=== PATIENT | female | born 1955 | race Caucasian/White ===

== ENCOUNTER 2023-06-27 07:35 | Outpatient (OUT) | payer MEDICARE, SELFPAY | END 2023-06-27 07:36 | disposition home or self-care (01) | LOC: PST 07:35 | PROVIDERS: PCP Family Medicine; Visit Provider Surgery | DX: Z01.818 Encounter for other preprocedural examination (principal); R19.7 Diarrhea, unspecified; R19.4 Change in bowel habit ==

== ENCOUNTER 2023-07-04 07:25 | Day surgery (SDC) | payer MEDICARE, SELFPAY ==
--- NOTE | 2023-07-04 | OP_ITS ---
OPERATION DATE: 07/04/2023 PREOPERATIVE DIAGNOSIS: Change in bowel habits with frequent loose stools. POSTOPERATIVE DIAGNOSIS: Severe diverticulosis throughout the colon, redundancy of the colon. PROCEDURE: Colonoscopy to cecum with random sigmoid and rectal biopsies. SURGEON: Cuba Serrato M.D. ANESTHESIA: Monitored anesthesia care. ESTIMATED BLOOD LOSS: Less than 1 mL. INDICATIONS AND CONSENT: Patient is a 67-year-old female with history of change in bowel habits with frequent loose stools. Indications, risks, benefits, alternatives of proceeding with colonoscopy were explained extensively to the patient, including the risks of bleeding, colon perforation or anesthetic complications. All of her questions were answered. Informed consent was obtained. PROCEDURE: Patient brought to the operating room, placed in the left lateral decubitus position. Monitored anesthesia care was provided. Rectal exam was performed which shows no masses or blood. The scope was inserted into the anal canal. Under direct visualization was advanced. It was advanced to the cecum where cecal markings were clearly identified. There were no inflammatory changes or ulcerations. The terminal ileum was unable to be intubated due to the angle. Upon withdrawal of the scope, mucosal surfaces were carefully examined. There were no mass lesions or polyps. No inflammatory changes or ulcerations. There was severe diverticulosis throughout the colon, including the right colon, without inflammatory changes or scarring. There was redundancy of the colon. Random sigmoid biopsies were obtained with cold biopsy forceps as well as rectal biopsies with good hemostasis. Scope was retroflexed in the anal canal. There was no significant hemorrhoidal disease. The scope was then withdrawn. Patient tolerated procedure well, was sent to recovery room in good condition.f/u screening colonoscopy likely in 10 years CC: Giselle Alfredo
[2023-07-04 07:30] VITALS: BP 157/96; PULSE 76; RESP 18; TEMP 36.8; O2SAT 96; BMI 46.4
--- OUTSIDE RECORDS SUMMARY | 2023-07-04 07:36 | XMS_ITS | CCD ---
Author Name Unknown Address [address] [place] [address] Organization [facility] Care Team Providers Care Office Coordinator Name Role Phone ELADIO XAVIER Unavailable Unavailable NADEREPATRICK Bello Unavailable Unavailabl STANLEY Ansari Unavailable Unavailable MARCO ANTONIO EPPERSON Unavailable Unavailable CAMILLE HASSAN Unavailable Unavailable MORENITAELADIO Patterson Unavailable Unavailable NADEREAce, PATRICK CAPELLAN Unavailable Unavailalexa e Laurent, Patrick Lopez Primary Care Provider [phone] Naderer, Patrick Lopez Primary Care Provider [phone] OSBALDO AGUILARI Admitting Unavailable EMILY, HANI Attending Unavailable UNKNOWN, PHYSICIAN Referring Unavailable NADEASTON, PATRICK Primary Care Unavailable NANO, DR LINH Bello Attending Unavailable NANO, DR LINH Bello Consulting Unavailable NANO, DR LINH Bello Admitting Unavailable NADERER, DR PATRICK Lopez Primary Care Unavailable ZIEBER, DR SHELDON Bello Consulting Unavailable BOONE ., LISETH Consulting Unavailable NADERER, DR PATRICK Lopez Primary Care Unavailable SAMSA, CHELLE Admitting Unavailable SAMSA, CHELLE Attending Unavailable SAMSA, CHELLE Consulting Unavailable NADERER, DR PATRICK Lopez Admitting Unavailable MALAGA, DR MEGAN Abrams Consulting Unavailable NADERER, DR PATRICK Lopez Attending Unavailable NADERER, DR PATRICK Lopez Primary Care Unavailable NADERER, DR PATRICK Lopez Consulting Unavailable NADERER, DR PATRICK Lopez Admitting Unavailable NADERER, DR PATRICK Lopez Attending Unavailable NADERER, DR PATRICK Lopez Consulting Unavailable NADERER, DR PATRICK Lopez Primary Care Unavailable NADERER, DR PATRICK Lopez Primary Care Unavailable MOUKARBKIRILL SULLIVAN Admitting Unavailable MOUKARBEL, KIRILL Attending Unavailable MOUKARBELKIRILL Consulting Unavailable NADERER, DR PATRICK Lopez Primary Care Unavailable NADERER, DR PATRICK Lopez Admitting Unavailable NADERER, DR PATRICK Lopez Attending Unavailable NADERER, DR PATRICK Lopez Consulting Unavailable MOUKARBELKIRILL Admitting Unavailable NADERER, DR PATRICK A Primary Care Unavailable KIRILL HOPKINS Attending Unavailable KIRILL HOPKINS Consulting Unavailable BEATA CUMMINS Attending Unavailable KIRILL HOPKINS Attending Unavailable PATRICK MANCILLA Primary Care Physician Cuba GREENE Attending Unavailable PATRICK MANCILLA Referring Unavailable Allergies Allergy Classification Reported Allergen(s) Allergy Type Date of Onset Reaction(s) Facility (5 sources) Povidone-Iodine; Translations: [povidone iodine topical] Drug Allergy 9 Eruption of skin (disorder) [facility] (1 source) Povidone-Iodine Drug Allergy 3 [facility] (2 sources) Povidone-Iodine; Translations: [Betadine] Drug Allergy 3 [facility] Rep[facility] (1 source) Povidone-Iodine; Translations: [POVIDONE-IODINE ] Drug Allergy 8 [facility] Repository Medications Current Medications Medication Drug Class(es) Dates Sig (Normalized) Sig (Original) acetaminophen 325 mg / HYDROcodone bitartrate 5 mg oral tablet (4 sources) Opioid Agonist take 1 tablet by mouth four times daily as needed hydroCODone-aceta minophen 5-325 MG Tab tablet Take 1 tablet by mouth 4 times daily as needed. 0 Active ProAir HFA (2 sources) beta2-Adrenergic Agonist Start: 05-30-2023 take 2 puff(s) by inhalation every four hours ProAir HFA 2 puff(s), Inhalation, q4hr Shortness of breath or wheezing, Refill(s) 0 Start Date: 05/30/23 Status: Ordered Start: 05-30-2023 take 2.5 mg by inhal ation four times daily albuterol 0.083% Inh Sheri 3 mL 2.5 mg, 3 mL, NEB, QID Shortness of breath or wheezing, Refill(s) 0 Start Date: 05/30/23 Status: Ordered ascorbic acid 500 mg oral capsule (1 source) Vitamin C Ascorbic Acid (Vitamin C) 500 MG capsule Take by mouth. 0 Active aspirin 81 mg delayed release oral tablet (4 sources) Platelet Aggregation Inhibitor, Nonsteroidal Anti-inflammatory Drug Start: 05-30-2023 take 1 tablet by mouth once daily aspirin 81 mg Oral EC Tab 81 mg = 1 tab(s), Oral, Daily, Refills(s) 0 Start Date: 05/30/23 Status: Ordered Start: 02-24-2020 End: 02-25-2020 take 81 mg by mouth once daily 81 mg, Oral, DAILY, Fir st dose on Sun02/24/20 at 0900, Until Discontinued Start: 02-23-2020 End: 02-23-2020 aspirin chewable tablet 243 mg atropine sulfate 0.025 mg / diphenoxylate hydrochloride 2.5 mg oral tablet (1 source) Anticholinergic, Cholinergic Muscarinic Antagonist, Antidiarrheal Start: 05-30-2023 take 1 tablet by mouth four times daily as needed Lomotil 0.025 mg-2.5 mg Tab 1 tab(s), Oral, QID as needed for loose stool, Refill(s) 0 Start Date: 05/30/23 Status: Ordered biotin 1 mg oral capsule (1 source) Biotin 1 MG capsule Take by mouth. 0 Active celecoxib 200 mg oral capsule (5 sources) Nonsteroidal Anti-inflammatory Drug Start: 05-30-2023 take 1 capsule by mouth twice daily CeleBREX 200 mg Cap 200 mg = 1 cap(s), Oral, BID, Refills(s) 0 Start Date: 05/30/23 Status: Ordered Start: 01-23-2019 take 1 capsule by [facility] twice daily celecoxib 200 MG Cap capsule Take 200 mg by mouth 2 times daily. 5 01/23/2019 Active cetirizine hydrochloride 10 mg oral tablet (1 source) Histamine-1 Receptor Antagonist Start: 05-30-2023 take 1 tablet by mouth once daily cetirizine 10 mg Tab 10 mg = 1 tab(s), Oral, Daily, Refills(s) 0 Start Date: 05/30/23 Status: Ordered cholecalciferol 1000 unt oral tablet (1 source) Vitamin D take 1 tablet by mouth once daily Vitamin D3 25 MCG (1000 UT) tablet Take 1,000 Units by mouth daily. 0 Active cyclobenzaprine hydrochloride 10 mg oral tablet (1 source) Muscle Relaxant Start: 05-30-2023 take 1 tablet by mouth three times daily as needed for muscle spasms cyclobenzaprine 10 mg Tab 10 mg = 1 tab(s), Oral, TID, PRN for spasm, Refills(s) 0 Start Date: 05/30/23 Status: Ordered docosahexaenoic acid 120 mg / eicosapentaenoic acid 180 mg oral capsule (1 source) take 2 tablets by mouth once daily Mcloud-3 Fatty Acids (Fish Oil) 1000 MG capsule Take by mouth daily. 2 tabs daily 0 Active 0.5 ml dulaglutide 3 mg/ml auto-injector (1 source) GLP-1 Receptor Agonist Start: 05-30-2023 inject 1.5 mg by subcutaneous injection every week Trulicity Pen 1.5 mg/0.5 mL subcutaneous solution 1.5 mg, SubCutaneous, qWeek, Refills(s) 0 Start Date: 05/30/23 Status: Ordered fluticasone propionate 0.05 mg/actuat metered dose nasal spray (6 sources) Corticosteroid Start: 05-30-2023 Flonase 0.05 mg/inh Palisade 100 mcg, Nasal, Daily, Refill(s) 0 Start Date: 05/30/23 Status: Ordered Start: 02-23-2020 End: 02-25-2020 take 2 spray(s) nasal route once daily 2 spray, Nasal, DAILY, First dose on Sun02/23/20 at 2100, Until Discontinued Dose is for each nostril. fluticasone 50 M CG/ACT Suspension nasal spray 2 sprays by Nasal route daily. 0 Active furosemide 40 mg oral tablet (6 sources) Loop Diuretic Start: 05-30-2023 take 1 tablet by mouth twice daily Lasix 40 mg Tab 40 mg = 1 tab(s), Oral, BID, Refills(s) 0 Start Date: 05/30/23 Status: Ordered Start: 02-23-2020 End: 02-25-2020 take 40 mg by mouth twice daily 40 mg, Oral, 2 TIMES D AILY, First dose on Sun02/23/20 at 1700, Until Discontinued take 1 tablet by kryslte th twice daily furOSEmide 40 MG Tab tablet Take 40 mg by mouth 2 times daily. 0 Active 24 hr isosorbide mononitrate 60 mg extended release oral tablet (6 sources) Nitrate Vasodilator Start: 05-30-2023 take 1 tablet by mouth once daily in the morning isosorbide mononitrate 60 mg ER Tab 60 mg = 1 tab(s), Oral, qAM, Refills(s) 0 Start Date: 05/30/23 Status: Ordered Start: 02-24-2020 End: 02-25-2020 60 mg, Oral, DAILY, First do se on Sun02/24/20 at 0900, Until Discontinued Do not crush or chew. May be divided in half. take 1 tablet by krystle th once daily, then take 1 tablet by mouth every twenty-four hours isosorbide mononitrate 60 MG Tab SR 24 HR tablet XL Take 60 mg by mouth daily. 0 Active levothyroxine sodium 0.125 mg oral tablet (6 sources) l-Thyroxine Start: 05-30-2023 take 1 tablet by mouth once daily Synthroid 125 mcg (0.125 mg) Tab 125 mcg = 1 tab(s), Oral, Daily, Refills(s) 0 Start Date: 05/30/23 Status: Ordered Start: 01-23-2019 End: 02-25-2020 take 112 ug by mouth once daily before breakfast 112 mcg, Oral, DAILY BEFORE BREAKFAST, First dose on Sun02/24/20 at 0600, Until Discontinued 24 hr metoprolol succinate 50 mg extended release oral tablet (5 sources) beta-Adrenergic Carmen Start: 05-30-2023 take 1 tablet by mouth once daily metoprolol 50 mg ER Tab 50 mg = 1 tab(s), Oral, Daily, Refills(s) 0 Start Date: 05/30/23 Status: Ordered Start: 02-25-2020 take 1 tablet by krystle th once daily metoprolol succinate 25 MG tablet XL Take 1 tablet by mouth daily. 30 tablet 1 02/25/2020 Active Start: 02-25-2020 End: 02-25-2020 metoprolol (LOPRESSOR) injec tion 0-15 mg Start: 02-24-2020 End: 02-25-2020 take 50 mg by mouth once daily 50 mg, Oral, DAILY, Fir st dose on Sun02/24/20 at 0900, Until Discontinued End: 02-25-2020 take 2 tablets by mouth once daily metoprolol 25 MG tab regular release Take 50 mg by mouth daily. 0 02/25/2020 Discontinued (Stop Taking at Discharge) montelukast 10 mg oral tablet (1 source) Leukotriene Receptor Antagonist Start: 05-30-2023 take 1 tablet by mouth once daily Singulair 10 mg Tab 10 mg = 1 tab(s), Oral, Daily, Refills(s) 0 Start Date: 05/30/23 Status: Ordered NIFEdipine 60 mg osmotic 24 hr extended release oral tablet (6 sources) Dihydropyridine Calcium Channel Carmen Start: 05-30-2023 take 1 tablet by mouth once daily Procardia 60 mg Tab-ER 60 mg = 1 tab(s), Oral, Daily, Refills(s) 0 Start Date: 05/30/23 Status: Ordered Start: 02-24-2020 End: 02-25-2020 take 60 mg by mouth once daily 60 mg, Oral, DAILY, First dose on Sun02/24/20 at 0900, Until Discontinued Slow release product. Do not chew or crush. Start: 01-28-2019 take 1 tablet by krystle th once daily NIFEdipine 60 MG (OSM) tablet XL Take 60 mg by mouth daily. 5 01/28/2019 Active omeprazole 40 mg delayed release oral capsule (4 sources) Proton Pump Inhibitor Start: 02-10-2019 take 1 capsule by mouth once daily omeprazole [address] capsule Take 1 capsule by mouth daily. 30 capsule 1 02/10/2019 Active pantoprazole 40 mg delayed release oral tablet (2 sources) Proton Pump Inhibitor Start: 05-30-2023 take 1 tablet by mouth once daily Protonix 40 mg Tab-DR 40 mg = 1 tab(s), Oral, Daily, Refills(s) 0 Start Date: 05/30/23 Status: Ordered Start: 02-23-2020 End: 02-25-2020 pantoprazole (PROTONIX) tabl et DR 40 mg rosuvastatin calcium 40 mg oral tablet (1 source) HMG-CoA Reductase Inhibitor Start: 05-30-2023 take 1 tablet by mouth once daily Crestor 40 mg Tab 40 mg = 1 tab(s), Oral, Daily, Refills(s) 0 Start Date: 05/30/23 Status: Ordered Symbicort 160/4.5 inhalation aerosol with adapter (1 source) Start: 05-30-2023 take 2 puff(s) by inhalation twice daily Symbicort 160/4.5 inhalation aerosol with adapter 2 puff(s), Inhalation, BID, Refill(s) 0 Start Date: 05/30/23 Status: Ordered traMADol hydrochloride 50 mg oral tablet (6 sources) Opioid Agonist Start: 05-30-2023 take 1 tablet by mouth every four hours as needed for pain Ultram 50 mg Tab 50 mg = 1 tab(s), Oral, q4hr, PRN as needed for pain, Refills(s) 0 Start Date: 05/30/23 Status: Ordered Start: 02-23-2020 End: 02-25-2020 take 1 tablet by mouth every six hours as needed 50 mg, Oral, EVERY 6 HOURS NEEDED, Starting Sun02/23/20 at 0918, Until Sun02/25/20 at 1934, Moderate Pain take 1 tablet by krystle th every six hours as needed traMADol 50 MG Tab tablet Take 50 mg by mouth every 6 hours as needed. 0 Active 24 hr venlafaxine 150 mg extended release oral capsule (3 sources) Serotonin and Norepinephrine Reuptake Inhibitor Start: 05-30-2023 take 1 capsule by mouth once daily Effexor XR 150 mg Cap-ER 150 mg = 1 cap(s), Oral, Daily, Refills(s) 0 Start Date: 05/30/23 Status: Ordered Start: 02-24-2020 End: 02-25-2020 take 150 mg by mouth once daily at breakfast 150 mg, Oral, DAILY WITH BREAKFAST, First dose on Sun02/24/20 at 0745, Until Discontinued take 150 mg by mouth once daily VENLAFAXINE HCL PO Take 150 mg by mouth daily. 0 Active Completed/Discontinued Medications Medication Drug Class(es) Dates Sig (Normalized) Sig (Original) acetaminophen 325 mg oral tablet (1 source) Start: 02-23-2020 End: 02-25-2020 take 1 tablet by mouth every four hours as needed acetaminophen (TYLENOL) tablet 650 mg albuterol 0.833 mg/ml / ipratropium bromide 0.167 mg/ml inhalant solution (1 source) Anticholinergic, beta2-Adrenergic Agonist Start: 02-23-2020 End: 02-25-2020 take 3 mL by inhalation every four hours as needed ipratropium-albuter ol (DUONEB) 0.5-2.5 (3) MG/3ML nebulizer solution 3 mL 10 ml atropine sulfate 0.1 mg/ml prefilled syringe (1 source) Anticholinergic, Cholinergic Muscarinic Antagonist Start: 02-25-2020 End: 02-25-2020 atropine injection 0-2 mg 250 ml DOBUTamine 2 mg/ml injection (1 source) beta-Adrenergic Agonist Start: 02-25-2020 End: 02-25-2020 DOBUTamine in dextrose 5% (DOBUTREX) 500 mg/250 ml premix infusion 0.4 ml enoxaparin sodium 100 mg/ml prefilled syringe (1 source) Low Molecular Weight Heparin Start: 02-23-2020 End: 02-25-2020 enOXAParin (LOVENOX) injection 40 mg 4 ml labetalol hydrochloride 5 mg/ml cartridge (1 source) beta-Adrenergic Carmen Start: 02-23-2020 End: 02-25-2020 take 20 mg intravenous route every six hours as needed labetalol (NORMODYNE) injection 20 mg lamoTRIgine 25 mg oral tablet (5 sources) Mood Stabilizer, Anti-epileptic Agent Start: 02-23-2020 End: 02-25-2020 take 50 mg by mouth once daily at bedtime 50 mg, Oral, DAILY AT BEDTIME, First dose on Sun02/23/20 at 2100, Until Discontinued Start: 01-28-2019 take 1 tablet by krystle th at bedtime, then take 2 tablets by mouth at bedtime lamoTRIgine 25 MG Tab TAKE ONE TABLET BY MOUTH AT BEDTIME FOR TWO WEEKS THEN INCREASE TO TWO TABLETS AT BEDTIME 5 01/28/2019 Active 50 ml magnesium sulfate 40 mg/ml injection (1 source) Start: 02-23-2020 End: 02-25-2020 magnesium sulfate 2 g/50 mL in sterile water premix IVPB 2 g 50 mL (total volume) 2 ml ondansetron 2 mg/ml injection (4 sources) Serotonin-3 Receptor Antagonist Start: 02-23-2020 End: 02-25-2020 take 4 mg intravenous route every four hours as needed ondansetron 4mg/2ml (ZOFRAN) injection 4 mg Start: 06-30-2019 take 1 tablet by krystle th every four hours as needed for nausea ondansetron 4 MG Tab Dispersible tablet Indications: Nausea vomiting and diarrhea Take 1 tablet by mouth every 4 hours as needed for Nausea. Place on tongue 10 tablet 0 06/30/2019 Active Start: 06-30-2019 End: 06-30-2019 ondansetron (ZOFRAN-ODT) disintegrating tablet 4 mg PERFLUTREN LIPID MICROSPHERE 1.3 ML/8.7ML (2 sources) Start: 02-25-2020 End: 02-25-2020 PERFLUTREN LIPID MICROSPHERE 1.3 ML/8.7ML Start: 02-23-2020 End: 02-23-2020 PERFLUTREN LIPID MICROSPHERE 1.3 ML/8.7ML Potassium Chloride (1 source) Start: 02-24-2020 End: 02-25-2020 potassium chloride (K-DUR) tablet ER 40 mEq 250 ml sodium chloride 9 mg/ ml injection (2 sources) Start: 02-25-2020 End: 02-25-2020 sodium chloride 0.9% IV solution 1,000 mL Start: 02-23-2020 End: 02-25-2020 sodium chloride 0.9% IV solu tion spironolactone 25 mg oral tablet (4 sources) Aldosterone Antagonist End: 02-25-2020 take 1 tablet by mouth twice daily spironolactone 25 MG Tab tablet Take 25 mg by mouth 2 times daily. 0 02/25/2020 Discontinued (Stop Taking at Discharge) tiotropium 0.018 mg inhalation powder (1 source) Anticholinergic Start: 05-30-2023 Spiriva 18 mcg Cap 18 mcg = 1 cap(s), Inhalation, Daily, Using only ONE capsule, have the patient inhale twice, # 90 cap(s), Refills(s) 0 Start Date: 05/30/23 Status: Ordered Problems Active Problems Problem Classification Problem Date Documented Da te Episodic/Chronic Acute and unspecified renal failure (2 sources) Acute injury of kidney; Translations: [EDIE (acute kidney injury)] Onset: 02-23-2020 02-23-2020 Anxiety disorders (1 source) Generalized anxiety disorder 05-30-2023 Chronic Asthma (1 source) Asthma 05-30-2023 Chronic Cardiac dysrhythmias (4 sources) Ventricular premature depolarization; Translations: [Atrial premature depolarization] Onset: 06-16-2022 Chronic Chronic kidney disease (1 source) Chronic kidney disease stage 3 05-30-2023 Chronic Chronic kidney disease (1 source) Chronic kidney disease; Translations: [CHRONIC KIDNEY DISEASE STAGE 3A] Onset: 04-06-2022 Chronic obstructive pulmonary disease and bronchiectasis (2 sources) Chronic obstructive pulmonary disease, unspecified; Translations: [Chronic obstructive lung disease] Onset: 03-09-2022 05-30-2023 Chronic Congestive heart failure; nonhypertensive (1 source) Chronic diastolic heart failure 05-30-2023 Chronic Diabetes mellitus with complications (6 sources) Type 2 diabetes mellitus with hyperglycemia; Translations: [Type 2 diabetes mellitus with diabetic chronic kidney disease] Onset: 04-05-2022 Chronic Diabetes mellitus without complication (2 sources) Type 2 diabetes mellitus without complications; Translations: [Diabetes mellitus] Onset: 03-09-2022 05-30-2023 Chronic Disorders of lipid metabolism (14 sources) Hyperlipidemia; Translations: [Mixed hyperlipidemia] Onset: 02-10-2019 02-10-2019 Chronic Diverticulosis and diverticulitis (1 source) Diverticular disease 05-30-2023 Chronic Esophageal disorders (2 sources) Gastro-esophageal reflux disease without esophagitis; Translations: [Gastroesophageal reflux disease] Onset: 03-09-2022 05-30-2023 Chronic Essential hypertension (8 sources) Benign hypertension; Translations: [Essential (primary) hypertension] Onset: 02-10-2019 02-10-2019 Chronic Hypertension with complications and secondary hypertension (4 sources) Hypertensive chronic kidney disease with stage 1 through stage 4 chronic kidney disease, or unspecified chronic kidney disease; Translations: [Hypertensive heart disease without heart failure] Onset: 03-09-2022 Chronic Miscellaneous mental health disorders (1 source) Primary insomnia; Translations: [PRIMARY INSOMNIA] Onset: 01-13-2022 Chronic Mood disorders (2 sources) Major depressive disorder, single episode, unspecified; Translations: [Depressive disorder] Onset: 03-09-2022 05-30-2023 Chronic Nausea and vomiting (1 source) Nausea, vomiting and diarrhea; Translations: [Nausea vomiting and diarrhea] Episodic Other gastrointestinal disorders (2 sources) Altered bowel function; Translations: [Change in bowel habit] Onset: 06-20-2023 Episodic Other lower respiratory disease (1 source) Nodule of lung 05-30-2023 Episodic Other nutritional; endocrine; and metabolic disorders (6 sources) Morbid obesity; Translations: [Obesity, morbid, BMI 40.0-49.9] Onset: 02-10-2019 02-10-2019 Chronic Other nutritional; endocrine; and metabolic disorders (2 sources) Body mass index 40+ - severely obese; Translations: [Body mass index (BMI) 45.0-49.9, adult] Onset: 06-20-2023 Chronic Other upper respiratory disease (1 source) Seasonal allergic rhinitis 05-30-2023 Chronic Natalie-; endo-; and myocarditis; cardiomyopathy (except that caused by tuberculosis or sexually transmitted disease) (1 source) Cardiomyopathy in diseases classified elsewhere; Translations: [CARDIOMYOPATHY DZ CLASSIFIED ELSW] Onset: 03-09-2022 Chronic Residual codes; unclassified (4 sources) Obstructive sleep apnea (adult) (pediatric); Translations: [OBSTRUCTIVE SLEEP APNEA] Onset: 01-10-2022 Chronic Residual codes; unclassified (1 source) Obstructive sleep apnea syndrome 05-30-2023 Chronic Residual codes; unclassified (1 source) Insomnia 05-30-2023 Episodic Spondylosis; intervertebral disc disorders; other back problems (1 source) Lumbosacral spondylosis with radiculopathy 05-30-2023 Chronic Syncope (1 source) Syncope and collapse; Translations: [Syncope and collapse] Onset: 12-14-2017 Episodic Thyroid disorders (2 sources) Hypothyroidism, unspecified; Translations: [Hypothyroidism] Onset: 04-06-2022 05-30-2023 Chronic Unclassified (1 source) CONTACT W/AND (SUSP) EXPOS COVID-19; Translations: [CONTACT W/AND (SUSP) EXPOS COVID-19] Onset: 03-09-2022 Unclassified (1 source) Patient encounter status 05-30-2023 Viral infection (1 source) Disease caused by 2019-nCoV; Translations: [UNVACCINATED COVID 19] Onset: 03-09-2022 Past or Other Problems Problem Classification Problem Date Documented Da te Episodic/Chronic Nonspecific chest pain (15 sources) Chest pain, unspecified; Translations: [Chest pain] Onset: 12-14-2017 02-10-2019 Episodic Other aftercare (1 source) Other assisted (current) drug therapy; Translations: [[facility]IV[facility] CURRENT DRUG THERAPY] Onset: 04-06-2022 Episodic Other aftercare (1 source) physician intensivist (current) use of aspirin; Translations: [ADAPTED PHYSICAL EDUCATION AIDE CURRENT USE OF ASPIRIN] Onset: 03-09-2022 Episodic Other lower respiratory disease (7 sources) Shortness of breath; Translations: [SHORTNESS OF BREATH] Onset: 03-09-2022 Episodic Other screening for suspected conditions (not mental disorders or infectious disease) (4 sources) Encounter for screening mammogram for malignant neoplasm of breast; Translations: [ENC SCR MAMMO MALIG NEOPLASM BREAST] Onset: 11-08-2021 Episodic Residual codes; unclassified (3 sources) Localized edema; Translations: [LOCALIZED EDEMA] Onset: 06-15-2022 Episodic Residual codes; unclassified (1 source) Acquired absence of other specified parts of digestive tract; Translations: [ACQ ABSENCE OTH PART DIGESTV TRACT] Onset: 03-09-2022 Episodic Residual codes; unclassified (1 source) Acquired absence of both cervix and uterus; Translations: [ACQUIRED ABSENCE BOTH CERVIX AND UTERUS] Onset: 03-09-2022 Episodic Residual codes; unclassified (1 source) Family history of malignant neoplasm of breast; Translations: [FAMILY HX MALIG NEOPLASM OF BREAST] Onset: 11-18-2021 Episodic Residual codes; unclassified (1 source) Family history of malignant neoplasm of trachea, bronchus and lung; Translations: [FAM HX MALIG NEOPLSM TRACH BRON LNG] Onset: 11-18-2021 Episodic Results Test Name Value Interpretation Reference Range Facil ity Consent for Procedure/Surger yon 06-22-2023 Consent for Procedure/Surgery [id number] [facility] Facesheeton 06-21-2023 Facesheet [id number] FF [facility] Ambulatory Visit Summaryon 1 08-21-2022 Ambulatory Visit Summary ALYCE TORRES :1955 Visit Date:06/20/2023 Ambulatory Visit Instructions Your Care Team Attending Physician - JC ARAMBULA, Cuba Bello Primary Care Physician - LAURENT ARAMBULA, PATRICK Referring Physician - PATRICK MANCILLA MD This Is Your Medications List Contact prescribing physician if questions or concerns NIFEdipine (Procardia 60 mg Tab-ER) albuterol (ProAir HFA) albuterol (albuterol 0.083% Inh Sheir 3 mL) aspirin (aspirin 81 mg Oral EC Tab) atropine-diphenoxylate (Lomotil 0.025 mg-2.5 mg Tab) budesonide-formoterol (Symbicort 160/4.5 inhalation aerosol with adapter) celecoxib (CeleBREX 200 mg Cap) cetirizine (cetirizine 10 mg Tab) cyclobenzaprine (cyclobenzaprine 10 mg Tab) dulaglutide (Trulicity Pen 1.5 mg/0.5 mL subcutaneous solution) fluticasone nasal (Flonase 0.05 mg/inh Palisade) furosemide (Lasix 40 mg Tab) isosorbide mononitrate (isosorbide mononitrate 60 mg ER Tab) levothyroxine (Synthroid 125 mcg (0.125 mg) Tab) metoprolol (metoprolol 50 mg ER Tab) montelukast (Singulair 10 mg Tab) pantoprazole (Protonix 40 mg Tab-DR) rosuvastatin (Crestor 40 mg Tab) tiotropium (Spiriva 18 mcg Cap) tramadol (Ultram 50 mg Tab) venlafaxine (Effexor XR 150 mg Cap-ER) Procedures Performed Colonoscopy (05/22/2011), EGD - esophagogastroduodenoscopy (05/15/2011), Sigmoidoscopy (05/15/2011), Abdominal hysterectomy, Arthroscopy of knee, Biopsy of breast, Cholecystectomy, Rotator cuff repair. Discharge Vitals Heart Rate (Peripheral) 80 Respiratory Rate 16 Blood Pressure 130/86 Height 170 cm Height 67 in Weight 134.9 kg Weight 296.78 lb BMI 46.68 Medications What How Much When Instructions Unchanged albuterol (albuterol 0.083% Inh Sheri 3 mL) 3 Milliliter Nebulized inhalation (aerosol) 4 times a day as needed for Shortness of breath or wheezing Contact prescribing physician if questions or concerns Unchanged albuterol (ProAir HFA) 2 Puffs Inhalation Every 4 hours as needed for Shortness of breath or wheezing Contact prescribing physician if questions or concerns Unchanged aspirin (aspirin 81 mg Oral EC Tab) 1 Tablets By Mouth Every day Contact prescribing physician if questions or concerns Unchanged atropine-diphenoxylate (Lomotil 0.025 mg-2.5 mg Tab) 1 Tablets By Mouth 4 times a day as needed for as needed for loose stool Contact prescribing physician if questions or concerns Unchanged budesonide-formoterol (Symbicort 160/ 4.5 inhalation aerosol with adapter) 2 Puffs Inhalation 2 times a day Contact prescribing physician if questions or concerns Unchanged celecoxib (CeleBREX 200 mg Cap) 1 Capsules By Mouth 2 times a day Contact prescribing physician if questions or concerns Unchanged cetirizine (cetirizine 10 mg Tab) 1 Tablets By Mouth Every day Contact prescribing physician if questions or concerns Unchanged cyclobenzaprine (cyclobenzaprine 10 mg Tab) 1 Tablets By Mouth 3 times a day as needed for for spasm Contact prescribing physician if questions or concerns Unchanged dulaglutide (Trulicity Pen 1.5 mg/ 0.5 mL subcutaneous solution) 1.5 Milligram Subcutaneous Every week Contact prescribing physician if questions or concerns Unchanged fluticasone nasal (Flonase 0.05 mg/ inh [place]) 100 Microgram Nasal Inhalation Every day Contact prescribing physician if questions or concerns Unchanged furosemide (Lasix 40 mg Tab) 1 Tablets By Mouth 2 times a day Contact prescribing physician if questions or concerns Unchanged isosorbide mononitrate (isosorbide mononitrate 60 mg ER Tab) 1 Tablets By Mouth Once a day (in the morning) Contact prescribing physician if questions or concerns Unchanged levothyroxine (Synthroid 125 mcg (0.125 mg) Tab) 1 Tablets By Mouth Every day Contact prescribing physician if questions or concerns Unchanged metoprolol (metoprolol 50 mg ER Tab) 1 Tablets By Mouth Every day Contact prescribing physician if questions or concerns Unchanged montelukast (Singulair 10 mg Tab) 1 Tablets By Mouth Every day Contact prescribing physician if questions or concerns Unchanged NIFEdipine (Procardia 60 mg Tab-ER) 1 Tablets By Mouth Every day Contact prescribing physician if questions or concerns Unchanged pantoprazole (Protonix 40 mg Tab-DR) 1 Tablets By Mouth Every day Contact prescribing physician if questions or concerns Unchanged rosuvastatin (Crestor 40 mg Tab) 1 Tablets By Mouth Every day Contact prescribing physician if questions or concerns Unchanged tiotropium (Spiriva 18 mcg Cap) 1 Capsules Inhalation Every day Using only ONE capsule, have the patient inhale twice Contact prescribing physician if questions or concerns Unchanged tramadol (Ultram 50 mg Tab) 1 Tablets By Mouth Every 4 hours as needed for as needed for pain Contact prescribing physician if questions or concerns Unchanged venlafaxine (Effexor XR 150 mg Cap-ER) 1 Capsules By Mouth Every day Contact prescribing physician if questions or concerns Medications and Immunizations Admi (more content not included)... Normal [facility] Insurance Correspondenceon 1 08-21-2022 Insurance Correspondence [id number]#1.00TIFF Normal [facility] Insurance Correspondence [id number]#1.00TIFF Normal [facility] Physician Referralon 023 Physician Referral [id number]#1.00TIFF Normal [facility] Office Visiton 11-06-2022 Follow-up visit [id number] Alyce Torres 1955 F Date Provider Department Center 11/06/2022 BEATA NORRIS [facility] Family History Problem Relation Age of Onset Coronary artery disease Mother Coronary artery disease Father Family Status - Relation Status Age at Mother Father Level of Service:61213 [place] OFFICE/OUTPATIENT ESTABLISHED MOD MDM 30-39 MIN Normal [facility] GLYCOHEMOGLOBIN A1Con 2022 ADA RECOMMENDATION SEE BELOW Normal [facility] Comment on above: Result Comment: ADA RECOMMENDED LIMIT 4.0 - 6.0 ADA THERAPEUTIC TARGET < 7.0 ACTION SUGGESTED > 7.0 Performed By: #### M ALBLC #### [facility] [address] [address] [address] Chrissy Schimdt Glucose [Mass/Vol] 117 mg/dL Normal [facility] Comment on above: Performed By: #### M ALBLC #### [facility] [address] [address] [address] Chrissy Schmidt HbA1c (Bld) [Mass fraction] 5.7 % Normal 4.5-6.2 [facility] Comment on above: Performed By: #### M ALBLC #### [facility] [address] [address] [address] Chrissy Schmidt LIPID PROFILEon 09-29-2022 CHOL-HDL RATIO NORM SEE BELOW Normal [facility] Comment on above: Result Comment: 3.3 - 4.4 LOW RISK 4.4 - 7.1 AVERAGE RISK 7.1 - 11.0 MODERATE RISK >11.0 HIGH RISK Performed By: #### L IPID ####[facility] [address] [address]Dr. Chrissy Schmidt Cholesterol [Mass/Vol] 101 mg/dL Normal <=200 [facility] Comment on above: Performed By: #### L IPID ####[facility] [address] [id number]. Chrissy Schmidt Cholesterol in HDL [Mass/Vol] 45 mg/dL Normal 40-60 [facility] Comment on above: Performed By: #### L IPID ####[facility] [address] [id number]. Chrissy Schmidt Cholesterol in LDL [Mass/Vol] 37.0 mg/dL Normal [facility] Comment on above: Performed By: #### L IPID ####[facility] [address] [address]Dr. Chrissy Schmidt Cholesterol.total/Cholestero l in HDL [Mass ratio] 2.2 {ratio} Normal [facility] Comment on above: Performed By: #### L IPID ####[facility] [address] [id number]. Chrissy Schmidt HDL NORMAL > or = 60 mg/dl - LO W CARDIOVASCULAR RISK <40 mg/dl - HIGH CARDIOVASCULAR RISK Normal [facility] Comment on above: Performed By: #### L IPID ####[facility] [address] [id number]. Chrissy Schmidt LDL CALC NORMAL SEE BELOW Normal [facility] Comment on above: Result Comment: <100 mg/dl OPTIMAL 100 - 129 mg/dl NEAR OR ABOVE OPTIMAL 130 - 159 mg/dl BORDERLINE HIGH 160 - 189 mg/dl HIGH >190 mg/dl VERY HIGH Performed By: #### L IPID ####[facility] [address] [id number]. Chrissy Schmidt Triglyceride [Mass/Vol] 95 mg/dL Normal <=150 T [facility] Comment on above: Performed By: #### L IPID ####[facility] [address] [id number]. Chrissy Schmidt VLDL CALC 19.0 mg/dL Normal [facility] Comment on above: Performed By: #### L IPID ####[facility] [address] [place], [place] [address]Fh. Chrissy Schmidt ECHOCARDIO M/2D COMPLETEon 0 07-19-2022 ECHOCARDIO M/2D COMPLETE Patient: ALYCE LEAHY Exam Date: 07/19/2022 : 1955 Gender:F Ordering : DR KIRILL HOPKINS M.D. Admission #: [id number] Family : Order #: [id number] CLICK HERE TO VIEW EXAM ECHOCARDIOGRAM REPORT PROCEDURE: CARDIO PULMONARY ECHOCARDIO M/2D COMP INDICATIONS: Edema, shortness of breath, hypertension, diabetes COMPARISON: None. DESCRIPTION: COMPLETE ECHOCARDIOGRAM Real-time transthoracic echocardiography with 2D, M-mode, spectral and color flow Doppler performed. QUALITY: Technically difficult due to patient's condition. 67 336# BP 96/54 LEFT VENTRICLE: Normal chamber size. Normal left ventricular wall thickness. LV EF: Global left ventricular systolic function is difficult to assess but appears preserved; cannot comment on regional wall motion abnormalities. Consider contrast study for better delineation of endocardial borders. DIASTOLIC: Diastolic function is indeterminate. ATRIAL SEPTUM: Visually appears intact. LEFT ATRIUM: Mild dilatation. RIGHT ATRIUM: Mild dilatation. RIGHT VENTRICLE: Poorly seen; appears enlarged. Systolic function appears preserved. TRICUSPID VALVE: Not well visualized. No stenosis with no regurgitation. Unable to assess right-sided pressures due to lack of measurable tricuspid regurgitation. MITRAL VALVE: Normal mobility and thickness. No evidence of mitral valve stenosis. There is no mitral annular calcification. No mitral regurgitation. AORTIC VALVE: Normal trileaflet appearance. No visible sclerosis. Normal leaflet mobility. No evidence of aortic valve stenosis. No aortic regurgitation. AORTIC ROOT: Normal diameter and appearance. PULMONIC VALVE: Not well visualized. No stenosis. No regurgitation. PERICARDIUM: Anterior free space; trivial effusion versus fat pad. IVC: Collapses with inspirations. IVC is normal in size. CONCLUSION: Global left ventricular systolic function is difficult to assess but appears preserved; cannot comment on regional wall motion abnormalities. Diastolic function is indeterminate. Biatrial enlargement. The right ventricle is poorly seen but appears enlarged. Systolic function appears preserved. Valves are poorly seen; no significant valvular abnormalities. Anterior free space; trivial effusion versus fat pad. Adult Echocardiography Procedure Report Left Ventricle LVEDD (3.7 - 5.6 cm): 5.12 cm LVESD (2.2 - 4.0 cm): 3.06 cm LVIVS thickness (0.6 - 1.2 cm): 1.04 cm LVPW thickness (0.5 - 1.0 cm): 1.02 cm e': 0.09 m/s E - e': 6.53 LVOT Max Gradient: 3.14 mm[Hg] Peak Velocity (LVOT): 0.89 m/s LVOT Diameter 2.14 cm Left Ventricular Ejection Fraction: 70.48 %, 70.48 % Left Atrium LA Volume Index (2D A2C): 92.62 ml, 92.62 ml Left Atrium Systolic Dimension: 3.85 cm Mitral Valve MV E to A Ratio: 0.71 Mitral Valve A-Wave Peak Velocity: 0.80 m/s Mitral Valve E-Wave Peak Velocity: 0.57 m/s Right Ventricle Aorta AO Root Diam: 3.43 cm Aortic Valve AoV Area (Peak Alberto): 2.46 cm2, 2.46 cm2 Peak Velocity(Antegrade Flow): 1.30 m/s Peak Gradient(Antegrade Flow): 6.71 mm[Hg] Tricuspid Valve Peak Velocity: 0.43 m/s Pulmonic Valve Peak Velocity: 1.00 m/s, 1.18 m/s Peak Gradient: 4.01 mm[Hg], 5.58 mm[Hg] Right Atrium Right Atrium Systolic Pressure: 59.59 ml, 59.59 ml Dictated by: Lalit Bloom M.D. on 07/21/2022 at 17:41 Approved by: Lalit Bloom M.D. on 07/21/2022 at 17:44 Normal [facility] Follow-Upon 06-16-2022 Follow-Up [id number] Alyce Torres 1955 F Date Provider Department Center 06/16/2022 KIRILL LUNSFORD [facility] Family History Problem Relation Age of Onset Coronary artery disease Mother Coronary artery disease Father Family Status - Relation Status Age at Mother Father Level of Service:86909 [place] OFFICE/OUTPATIENT ESTABLISHED MOD MDM 30-39 MIN Reason for Visit and Comments: Chest Pain [565407] Hypertension [250688] Normal [facility] MICROALBUMIN URINEon 022 Albumin, Urine 19.2 ug/mL Normal Not Estab. The [facility] Comment on above: Performed By: #### M ALBLC #### [facility] [address] [place], [place] [address] Dr. Chrissy Schmidt CBC AUTO DIFFon 04-05-2022 BASO # 0.1 103/ul Normal 0.0-0.1 The [facility] Comment on above: Performed By: #### C BC ####[facility] [address] [address]DrМария Schmidt Basophils/100 WBC (Bld) 1.0 % Normal 0.2-2.0 [facility] Comment on above: Performed By: #### C BC ####[facility] [address] [address]Dr. Chrissy Schmidt EO # 0.2 103/ul Normal 0.0-0.7 The [facility] Comment on above: Performed By: #### C BC ####[facility] [address] [address]DrМария Schmidt Eosinophils/100 WBC (Bld) 2.3 % Normal 0.9-7.0 The [facility] Comment on above: Performed By: #### C BC ####[facility] [address] [place] [id number] Schmidt Erythrocyte distribution wid th (RBC) [Ratio] 15.3 % Critically high 11.0-15.0 The [facility] Comment on above: Performed By: #### C BC ####[facility] [address] [id number] Schmidt Hematocrit (Bld) [Volume fraction] 48.6 % Critically high 36.0-48.0 The [facility] Comment on above: Performed By: #### C BC ####[facility] [address] [id number] Schmidt Hemoglobin (Bld) [Mass/Vol] 15.2 g/dL Normal 12.0-16. 0 The [facility] Comment on above: Performed By: #### C BC ####[facility] [address] [id number]. Chrissy Schmidt IG # 0.02 10e3/ul Normal 0.00-0.03 [facility] Comment on above: Performed By: #### C BC ####[facility] [address] [id number]. Chrissy Schmidt IG % 0.2 % Normal 0.0-0.5 [facility] Comment on above: Performed By: #### C BC ####[facility] [address] [id number]. Chrissy Schmidt LYMPH # 1.6 103/ul Normal 1.2-3.8 The [facility] Comment on above: Performed By: #### C BC ####[facility] [address] [address]Dr. Chrissy Schmidt Lymphocytes/100 WBC (Bld) 17.0 % Critically low 20.5-6 0.0 [facility] Comment on above: Performed By: #### C BC ####[facility] [address] [address]Dr. Chrissy Schmidt MANUAL DIFF REQ NO Normal [facility] Comment on above: Performed By: #### C BC ####[facility] [address] [place] [id number]. Chrissy Schmidt MCH (RBC) [Entitic mass] 27.2 pg Normal 26.7-34.0 [facility] Comment on above: Performed By: #### C BC ####[facility] [address] [place], [place] [address]Dr. Chrissy Schmidt MCHC (RBC) [Mass/Vol] 31.3 g/dL Normal 29.9-35.2 [facility] Comment on above: Performed By: #### C BC ####[facility] [address] [id number]. Chrissy Brayan MCV (RBC) [Entitic vol] 86.9 fL Normal 81.0-99.0 [facility] Comment on above: Performed By: #### C BC ####[facility] [address] [id number]. Chrissy Schmidt MONO # 0.8 103/ul Normal 0.3-0.8 The [facility] Comment on above: Performed By: #### C BC ####[facility] [address] [id number]. Chrissy Schmidt Monocytes/100 WBC (Bld) 8.2 % Normal 1.7-12.0 [facility] Comment on above: Performed By: #### C BC ####[facility] [address] [place], [place] [address]Dr. Chrissy Schmidt NEUT # 6.5 103/ul Normal 1.4-6.5 The [facility] Comment on above: Performed By: #### C BC ####[facility] [address] [place], [place] [address]Dr. Chrissy Schmidt Neutrophils/100 WBC (Bld) 71.3 % Normal 43.0-75.0 The [facility] Comment on above: Performed By: #### C BC ####[facility] [address] [place], [place] [address]Dr. Chrissy Schmidt Platelet mean volume (Bld) [Entitic vol] 13.9 fL Critically high 9.5-13.5 The [facility] Comment on above: Performed By: #### C BC ####[facility] [address] [place], [place] [address]Dr. Chrissy Schmidt PLT 270 103/ul Normal 150-450 The [facility] Comment on above: Performed By: #### C BC ####[facility] [address] [place], [place] [address]Dr. Chrissy Schmidt RBC 5.59 106/ul Critically high 4.20-5.40 The [facility] Comment on above: Performed By: #### C BC ####[facility] [address] [place], [place] [address]Dr. Chrissy Schmidt WBC 9.2 103/ul Normal 4.0-11.0 The [facility] Comment on above: Performed By: #### C BC ####[facility] [address] [address]Dr. Chrissy Schmidt FREE T3on 04-05-2022 FREE T3 2.72 pg/mlL Normal 2.18-3.98 [facility] Comment on above: Performed By: #### B MP, TSH, FT3, LIVER, LIPID ####[facility] [address] [address]Dr. Chrissy Schmidt FREE T4on 04-05-2022 Free T4 [Mass/Vol] 0.88 ng/dL Normal 0.76-1.46 The [place] [facility] Comment on above: Performed By: #### F T4, VITAD ####[facility] [address] [address]Dr. Chrissy Schmidt GLYCOHEMOGLOBIN A1Con 2021 ADA RECOMMENDATION SEE BELOW Normal The [place] [facility] Comment on above: Result Comment: ADA RECOMMENDED LIMIT 4.0 - 6.0 ADA THERAPEUTIC TARGET < 7.0 ACTION SUGGESTED > 7.0 Performed By: #### A 1C ####[facility] [address] [address]Dr. Chrissy Schmidt Glucose [Mass/Vol] 131 mg/dL Normal [facility] [place] [facility] Comment on above: Performed By: #### A 1C ####[facility] [address] [id number]. Chrissy Schmidt HbA1c (Bld) [Mass fraction] 6.2 % Normal 4.5-6.2 [facility] Comment on above: Performed By: #### A 1C ####[facility] [address] [address]Dr. Chrissy Schmidt LIPID PROFILEon 04-05-2022 CHOL-HDL RATIO NORM SEE BELOW Normal [facility] Comment on above: Result Comment: 3.3 - 4.4 LOW RISK 4.4 - 7.1 AVERAGE RISK 7.1 - 11.0 MODERATE RISK >11.0 HIGH RISK Performed By: #### B MP, TSH, FT3, LIVER, LIPID #### [facility] [address] [address] [address] Chrissy Schmidt Cholesterol [Mass/Vol] 220 mg/dL Critically high <=200 [facility] Comment on above: Performed By: #### B MP, TSH, FT3, LIVER, LIPID #### [facility] [address] [address] [address] Chrissy Schmidt Cholesterol in HDL [Mass/Vol] 44 mg/dL Normal 40-60 [facility] Comment on above: Performed By: #### B MP, TSH, FT3, LIVER, LIPID #### [facility] [address] [address] [address] Chrissy Schmidt Cholesterol in LDL [Mass/Vol] 141.6 mg/dL Normal The [facility] Comment on above: Performed By: #### B MP, TSH, FT3, LIVER, LIPID #### [facility] [address] [address] [address] Chrissy Schmidt Cholesterol.total/Cholestero l in HDL [Mass ratio] 5.0 {ratio} Normal The [facility] Comment on above: Performed By: #### B MP, TSH, FT3, LIVER, LIPID #### [facility] [address] [address] [address] Chrissy Schmidt HDL NORMAL > or = 60 mg/dl - LO W CARDIOVASCULAR RISK <40 mg/dl - HIGH CARDIOVASCULAR RISK Normal [facility] Comment on above: Performed By: #### B MP, TSH, FT3, LIVER, LIPID #### [facility] [address] [address] [address] Chrissy Schmidt LDL CALC NORMAL SEE BELOW Normal [facility] Comment on above: Result Comment: <100 mg/dl OPTIMAL 100 - 129 mg/dl NEAR OR ABOVE OPTIMAL 130 - 159 mg/dl BORDERLINE HIGH 160 - 189 mg/dl HIGH >190 mg/dl VERY HIGH Performed By: #### B MP, TSH, FT3, LIVER, LIPID #### [facility] [address] [address] [address] Chrissy Schmidt Triglyceride [Mass/Vol] 172 mg/dL Critically high <=150 The [facility] Comment on above: Performed By: #### B MP, TSH, FT3, LIVER, LIPID #### [facility] [address] [address] [address] Chrissy Schmidt VLDL CALC 34.4 mg/dL Normal [facility] Comment on above: Performed By: #### B MP, TSH, FT3, LIVER, LIPID #### [facility] [address] [address] [address] Chrissy Schmidt LIVER PROFILEon 04-05-2022 Albumin [Mass/Vol] 3.8 g/dL Normal 3.4-5.0 [facility] Comment on above: Performed By: #### B MP, TSH, FT3, LIVER, LIPID #### [facility] [address] [place] [address] Dr. Chrissy Schmidt Albumin/Globulin [Mass ratio] 0.9 {ratio} Normal [facility] Comment on above: Performed By: #### B MP, TSH, FT3, LIVER, LIPID #### [facility] [address] [place] [address] Dr. Chrissy Schmidt ALP [Catalytic activity/Vol] 152 U/L Critically high 46 -116 [facility] Comment on above: Performed By: #### B MP, TSH, FT3, LIVER, LIPID #### [facility] [address] [place] [address] Dr. Chrissy Schmidt ALT [Catalytic activity/Vol] 27 U/L Normal 14-59 [facility] Comment on above: Performed By: #### B MP, TSH, FT3, LIVER, LIPID #### [facility] [address] [place] [address] Dr. Chrissy Schmidt AST [Catalytic activity/Vol] 17 U/L Normal 15-37 [facility] Comment on above: Performed By: #### B MP, TSH, FT3, LIVER, LIPID #### [facility] [address] [place] [address] Dr. Chrissy Schmidt BILI, CONJUGATED 0.1 mg/dL Normal 0.0-0.2 [facility] Comment on above: Performed By: #### B MP, TSH, FT3, LIVER, LIPID #### [facility] [address] [place], [place] [address] Dr. Chrissy Schmidt Bilirubin [Mass/Vol] 0.6 mg/dL Normal 0.2-1.0 [facility] Comment on above: Performed By: #### B MP, TSH, FT3, LIVER, LIPID #### [facility] [address] [place] [address] Dr. Chrissy Schmidt Globulin (S) [Mass/Vol] 4.2 g/dL Normal T [facility] Comment on above: Performed By: #### B MP, TSH, FT3, LIVER, LIPID #### [facility] [address] [place] [address] Dr. Chrissy Schmidt Protein [Mass/Vol] 8.0 g/dL Normal 6.4-8.2 [facility] [place] [facility] Comment on above: Performed By: #### B MP, TSH, FT3, LIVER, LIPID #### [facility] [address] [place] [address] Dr. Chrissy Schmidt PROF CHEM 8 (BAS METB)on Anion gap [Moles/Vol] 7.2 mmol/L Normal [facility] Comment on above: Performed By: #### B MP, TSH, FT3, LIVER, LIPID #### [facility] [address] [place] [address] Dr. Chrissy Schmidt Calcium [Mass/Vol] 9.1 mg/dL Normal 8.5-10.1 [facility] Comment on above: Performed By: #### B MP, TSH, FT3, LIVER, LIPID #### [facility] [address] [place] [address] Dr. Chrissy Schmidt Chloride [Moles/Vol] 100 mmol/L Normal 98-107 The [facility] Comment on above: Performed By: #### B MP, TSH, FT3, LIVER, LIPID #### [facility] [address] [place] [address] Dr. Chrissy Schmidt CO2 [Moles/Vol] 34.7 mmol/L Critically high 21.0-32.0 [facility] Comment on above: Performed By: #### B MP, TSH, FT3, LIVER, LIPID #### [facility] [address] [address] [address] Chrissy Schmidt Creatinine [Mass/Vol] 1.23 mg/dL Critically high 0.55-1.02 [facility] Comment on above: Performed By: #### B MP, TSH, FT3, LIVER, LIPID #### [facility] [address] [address] [address] Chrissy Schmidt EGFR-AF DANISH 53 mL/min/1.73m2 Critically low >=60 [facility] Comment on above: Performed By: #### B MP, TSH, FT3, LIVER, LIPID #### [facility] [address] [address] [address] Chrissy Schmidt EGFR-NON AF DANISH 44 mL/min/1.73m2 Critically low >=60 [facility] Comment on above: Performed By: #### B MP, TSH, FT3, LIVER, LIPID #### [facility] [address] [place] [address] Dr. Chrissy Schmidt Glucose [Mass/Vol] 178 mg/dL Critically high 74-106 T [facility] Comment on above: Performed By: #### B MP, TSH, FT3, LIVER, LIPID #### [facility] [address] [place] [address] Dr. Chrissy Schmidt Potassium [Moles/Vol] 3.9 mmol/L Normal 3.5-5.1 [facility] Comment on above: Performed By: #### B MP, TSH, FT3, LIVER, LIPID #### [facility] [address] [address] [address] Chrissy Schmidt Sodium [Moles/Vol] 138 mmol/L Normal 136-145 [facility] Comment on above: Performed By: #### B MP, TSH, FT3, LIVER, LIPID #### [facility] [address] [place] [address] Dr. Chrissy Schmidt Urea nitrogen [Mass/Vol] 14.0 mg/dL Normal 7.0-18.0 [facility] Comment on above: Performed By: #### B MP, TSH, FT3, LIVER, LIPID #### [facility] [address] [address] [address] Chrissy Schmidt Urea nitrogen/Creatinine [Mass ratio] 11.4 mg/mg Normal [facility] Comment on above: Performed By: #### B MP, TSH, FT3, LIVER, LIPID #### [facility] [address] [address] [address] Chrissy Schmidt TSHon 04-05-2022 TSH 9.692 uIU/mL Critically high 0.358-3.740 [facility] Comment on above: Performed By: #### B MP, TSH, FT3, LIVER, LIPID ####[facility] [address] [address]DrМария Schmidt VITAMIN D 25 OHon 04-05-2022 VIT D 25-OH 40.4 ng/mL Normal [facility] Comment on above: Performed By: #### F T4, VITAD ####[facility] [address] [address]DrМария Schmidt VIT D RANGES SEE BELOW Normal [facility] Comment on above: Result Comment: <20 ng/mL Vit D deficient 20 - <30 ng/mL Vit D insufficient 30 - 100 ng/mL Vit D sufficient >100 ng/mL Potential Toxicity Performed By: #### F T4, VITAD ####[facility] [address] [address]Dr. Chrissy Schmidt BNPon 03-08-2022 Natriuretic peptide B (Bld) [Mass/Vol] 47.0 pg/mL Normal <=900.0 The [facility] Comment on above: Performed By: #### B CUTTER ALUMINUM SHEET, HSTROPN, CMP #### [facility] [address] [address] [address] Chrissy Schmidt CBC AUTO DIFFon 03-08-2022 BASO # 0.1 103/ul Normal 0.0-0.1 The [facility] ospital Comment on above: Performed By: #### C BC ####[facility] [address] [address]DrМария Schmidt Basophils/100 WBC (Bld) 1.4 % Normal 0.2-2.0 T he [facility] Comment on above: Performed By: #### C BC ####[facility] [address] [address]DrМария Schmidt EO # 0.3 103/ul Normal 0.0-0.7 The [facility] Comment on above: Performed By: #### C BC ####[facility] [address] [place], [place] [address]DrМария Schmidt Eosinophils/100 WBC (Bld) 4.9 % Normal 0.9-7.0 The [facility] Comment on above: Performed By: #### C BC ####[facility] [address] [place], [place] [address]Dr. Chrissy Schmidt Erythrocyte distribution wid th (RBC) [Ratio] 15.4 % Critically high 11.0-15.0 The [facility] Comment on above: Performed By: #### C BC ####[facility] Ms[address]spat[address] [place], [place] [address]DrМария Schmidt Hematocrit (Bld) [Volume fraction] 47.4 % Normal 3 6.0-48.0 The [facility] Comment on above: Performed By: #### C BC ####[facility] [address] [place], [place] [address]DrМария Schmidt Hemoglobin (Bld) [Mass/Vol] 15.1 g/dL Normal 12.0-16. 0 The [facility] Comment on above: Performed By: #### C BC ####[facility] [address] [place], [place] [address]DrМария Schmidt IG # 0.01 10e3/ul Normal 0.00-0.03 The [facility] Comment on above: Performed By: #### C BC ####[facility] [address] [place], [place] [address]DrМария Schmidt IG % 0.1 % Normal 0.0-0.5 The [facility] Comment on above: Performed By: #### C BC ####[facility] [address] [place], [place] [address]Dr. Chrissy Schmidt LYMPH # 1.7 103/ul Normal 1.2-3.8 [facility] Comment on above: Performed By: #### C BC ####[facility] [address] [id number] Schmidt Lymphocytes/100 WBC (Bld) 23.9 % Normal 20.5-60.0 [facility] Comment on above: Performed By: #### C BC ####[facility] [address] [address]DrМария Schmidt MANUAL DIFF REQ NO Normal [facility] Comment on above: Performed By: #### C BC ####[facility] [address] [address]DrМария Schmidt MCH (RBC) [Entitic mass] 27.1 pg Normal 26.7-34.0 [facility] Comment on above: Performed By: #### C BC ####[facility] [address] [place], [place] [address]DrМария Schmidt MCHC (RBC) [Mass/Vol] 31.9 g/dL Normal 29.9-35.2 [facility] Comment on above: Performed By: #### C BC ####[facility] [address] [place], [place] [address]DrМария Schmidt MCV (RBC) [Entitic vol] 85.1 fL Normal 81.0-99.0 [facility] Comment on above: Performed By: #### C BC ####[facility] Qif[address]inmsv[address] [place], [place] [address]DrМария Schmidt MONO # 0.5 103/ul Normal 0.3-0.8 The [facility] Comment on above: Performed By: #### C BC ####[facility] [address] [place], [place] [id number] Schmidt Monocytes/100 WBC (Bld) 7.5 % Normal 1.7-12.0 [facility] Comment on above: Performed By: #### C BC ####[facility] [address] [place], [place] [address]DrМария Schmidt NEUT # 4.3 103/ul Normal 1.4-6.5 The [facility] o[facility]ital Comment on above: Performed By: #### C BC ####[facility] [address] [address]Dr. Chrissy Schmidt Neutrophils/100 WBC (Bld) 62.2 % Normal 43.0-75.0 The [facility] Comment on above: Performed By: #### C BC ####[facility] [address] [address]Dr. Chrissy Schmidt Platelet mean volume (Bld) [ Entitic vol] 13.3 fL Normal 9.5-13.5 The [facility] Comment on above: Performed By: #### C BC ####[facility] [address] [address]Dr. Chrissy Schmidt PLT 251 103/ul Normal 150-450 The [facility] Comment on above: Performed By: #### C BC ####[facility] [address] [address]Dr. Chrissy Schmidt RBC 5.57 106/ul Critically high 4.20-5.40 The [facility] Comment on above: Performed By: #### C BC ####[facility] [address] [address]Dr. Chrissy Schmidt WBC 6.9 103/ul Normal 4.0-11.0 The [facility] Comment on above: Performed By: #### C BC ####[facility] S[address] [place], [place] [address]Dr. Chrissy Schmidt Covid-19 PCR (CVDTB)on 02-14 SARS-CoV-2 (COVID-19) RNA DAVIN+probe Ql (Unsp spec) Not detected Normal NOT DETECTED The [facility] [place] [facility] Comment on above: Result Comment: When diagnostic testing is negative, the possibility of a false negative should be considered in the context of a patient's recent exposures and the presence of clinical signs and symptoms consistent with SARS-CoV-2. This test is not yet approved or cleared by the [place] FDA. When there are no FDA-approved or cleared tests available, and other criteria are met, FDA can make tests available under an emergency access mechanism called an Emergency Use Authorization (EUA). The EUA for this test is supported by the Enterprise Infrastructure Architect of Health and Human Service's declaration that circumstances exist to justify the emergency use of in vitro diagnostics for the detection and/or diagnosis of the virus that causes COVID-19. This EUA will remain in effect for the duration of the COVID-19 declaration justifying emergency of IVDs, unless it is terminated or revoked by the FDA (after which the test may no longer be used). Performed By: #### C VDTBH #### [facility] [address] [place] [address] Dr. Chrissy Schmidt PROF 14(COMP METB)on 022 Albumin [Mass/Vol] 4.0 g/dL Normal 3.4-5.0 [facility] Comment on above: Performed By: #### B CUTTER ALUMINUM SHEET, HSTROPN, CMP #### [facility] [address] [place] [address] Dr. Chrissy Schmidt Albumin/Globulin [Mass ratio] 1.0 {ratio} Normal [facility] Comment on above: Performed By: #### B CUTTER ALUMINUM SHEET, HSTROPN, CMP #### [facility] [address] [place] [address] Dr. Chrissy Schmidt ALP [Catalytic activity/Vol] 172 U/L Critically high 46 -116 [facility] Comment on above: Performed By: #### B CUTTER ALUMINUM SHEET, HSTROPN, CMP #### [facility] [address] [place] [address] Dr. Chrissy Schmidt ALT [Catalytic activity/Vol] 36 U/L Normal 14-59 [facility] Comment on above: Performed By: #### B CUTTER ALUMINUM SHEET, HSTROPN, CMP #### [facility] [address] [place] [address] Dr. Chrissy Schmidt Anion gap [Moles/Vol] 13.4 mmol/L Normal [facility] Comment on above: Performed By: #### B CUTTER ALUMINUM SHEET, HSTROPN, CMP #### [facility] [address] [place] [address] Dr. Chrissy Schmidt AST [Catalytic activity/Vol] 21 U/L Normal 15-37 [facility] Comment on above: Performed By: #### B CUTTER ALUMINUM SHEET, HSTROPN, CMP #### [facility] [address] [address] [address] Chrissy Schmidt Bilirubin [Mass/Vol] 0.6 mg/dL Normal 0.2-1.0 [facility] Comment on above: Performed By: #### B CUTTER ALUMINUM SHEET, HSTROPN, CMP #### [facility] [address] [address] [address] Chrissy Schmidt Calcium [Mass/Vol] 9.3 mg/dL Normal 8.5-10.1 [facility] Comment on above: Performed By: #### B CUTTER ALUMINUM SHEET, HSTROPN, CMP #### [facility] [address] [place] [address] Dr. Chrissy Schmidt Chloride [Moles/Vol] 101 mmol/L Normal 98-107 The [facility] Comment on above: Performed By: #### B CUTTER ALUMINUM SHEET, HSTROPN, CMP #### [facility] [address] [address] [address] Chrissy Schmidt CO2 [Moles/Vol] 26.5 mmol/L Normal 21.0-32.0 [facility] Comment on above: Performed By: #### B CUTTER ALUMINUM SHEET, HSTROPN, CMP #### [facility] [address] [address] [address] Chrissy Schmidt Creatinine [Mass/Vol] 1.17 mg/dL Critically high 0.55-1.02 [facility] Comment on above: Performed By: #### B CUTTER ALUMINUM SHEET, HSTROPN, CMP #### [facility] [address] [address] [address] Chrissy Schmidt EGFR-AF DANISH 56 mL/min/1.73m2 Critically low >=60 The [facility] Comment on above: Performed By: #### B CUTTER ALUMINUM SHEET, HSTROPN, CMP #### [facility] [address] [address] [address] Chrissy Schmidt EGFR-NON AF DANISH 47 mL/min/1.73m2 Critically low >=60 [facility] Comment on above: Performed By: #### B CUTTER ALUMINUM SHEET, HSTROPN, CMP #### [facility] [address] [place] [address] Dr. Chrissy Schmidt Globulin (S) [Mass/Vol] 4.1 g/dL Normal [facility] Comment on above: Performed By: #### B CUTTER ALUMINUM SHEET, HSTROPN, CMP #### [facility] [address] [place] [address] Dr. Chrissy Schmidt Glucose [Mass/Vol] 152 mg/dL Critically high 74-106 [facility] Comment on above: Performed By: #### B CUTTER ALUMINUM SHEET, HSTROPN, CMP #### [facility] [address] [place] [address] Dr. Chrissy Schmidt Potassium [Moles/Vol] 3.9 mmol/L Normal 3.5-5.1 [facility] Comment on above: Performed By: #### B CUTTER ALUMINUM SHEET, HSTROPN, CMP #### [facility] [address] [place] [address] Dr. Chrissy Schmidt Protein [Mass/Vol] 8.1 g/dL Normal 6.4-8.2 The [facility] Comment on above: Performed By: #### B CUTTER ALUMINUM SHEET, HSTROPN, CMP #### [facility] [address] [place] [address] Dr. Chrissy Schmidt Sodium [Moles/Vol] 137 mmol/L Normal 136-145 [facility] Comment on above: Performed By: #### B CUTTER ALUMINUM SHEET, HSTROPN, CMP #### [facility] [address] [place] [address] Dr. Chrissy Schmidt Urea nitrogen [Mass/Vol] 13.0 mg/dL Normal 7.0-18.0 [facility] Comment on above: Performed By: #### B CUTTER ALUMINUM SHEET, HSTROPN, CMP #### [facility] [address] [place] [address] Dr. Chrissy Schmidt Urea nitrogen/Creatinine [Mass ratio] 11.1 mg/mg Normal [facility] Comment on above: Performed By: #### B CUTTER ALUMINUM SHEET, HSTROPN, CMP #### [facility] [address] [place], [place] [address] Dr. Chrissy Schmidt TROPONIN, HIGH SENSITIVITYon 03-08-2022 HSTROP 5.0 pg/mL Normal 4.0-51.3 The [facility] ostal Comment on above: Result Comment: CUT- OFF POINTS HAVE BEEN ESTABLISHED BASED ON THE FOURTH UNIVERSAL DEFINITIONS OF MYOCARDIAL INFARCTION. THE UPPER REFERENCE LIMIT (URL) OF TROPONIN, DEFINED THE 99TH PERCENTILE OF cTnI DISTRIBUTION IN A REFERENCE POPULATION, HAS BEEN CONFIRMED THE DECISION THRESHOLD FOR CA DIAGNOSIS. Performed By: #### H STROPN ####[facility] [address] [place], [place] [address]LsDr. Chrissy Schmidt HSTROP 6.9 pg/mL Normal 4.0-51.3 The [facility] Comment on above: Result Comment: CUT- OFF POINTS HAVE BEEN ESTABLISHED BASED ON THE FOURTH UNIVERSAL DEFINITIONS OF MYOCARDIAL INFARCTION. THE UPPER REFERENCE LIMIT (URL) OF TROPONIN, DEFINED THE 99TH PERCENTILE OF cTnI DISTRIBUTION IN A REFERENCE POPULATION, HAS BEEN CONFIRMED THE DECISION THRESHOLD FOR CA DIAGNOSIS. Performed By: #### B CUTTER ALUMINUM SHEET, HSTROPN, CMP #### [facility] [address] [place], [place] [address] Dr. Chrissy Schmidt XR CHEST 1 Von 03-08-2022 XR CHEST 1 V EXAMINATION: XR CHES T 1 V HISTORY: SHORTNESS OF BREATH ; left chest pain COMPARISON: XR chest 03/14/2021 FINDINGS: LUNGS: No significant pulmonary parenchymal abnormalities. VASCULATURE: No increased pulmonary vasculature. PLEURA: No pneumothorax, effusion, or pleural thickening. CARDIAC: No cardiomegaly or cardiac silhouette abnormality. MEDIASTINUM: No visible mass or adenopathy. BONES: No fracture or visible bone lesion. OTHER: Negative. IMPRESSION: 1. No acute cardiopulmonary process. 2. Examination slightly limited by patient body habitus and portable technique. Electronically authenticated by: SHELDON PETERS Date: 2022-03-08 06:21 Normal [facility] MG MAMM SCREEN 3D THERESE CADon 11-08-2021 MG MAMM SCREEN 3D THERESE CAD Patient: ALYCE TORRES Exam Date: 11/08/2021 : 1955 Gender:F Ordering : DR PATRICK MANCILLA . Admission #: [id number] Family : Order #: [id number] CLICK HERE TO VIEW EXAM RADIOLOGY REPORT PROCEDURE: MAMMOGRAM SCREENING 3D BILATERAL CAD COMPARISON: MG MAMM THERESE SCRN W CAD DIG, 03/21/2013. INDICATIONS: Screening mammography Calculator Name NCI Breast Cancer Risk Assessment Tool 5 Year Breast Cancer Risk 4.80% Lifetime Breast Cancer Risk 19.10% Personal Breast Cancer No Personal Ovarian Cancer No Treatments None Family Cancers Aunt-maternal with breast cancer at age 52; Aunt-maternal with breast cancer at age 61; Aunt-maternal with breast cancer at age 64; Mother with breast cancer at age 79; Father with lung cancer at age 49. LOCATION: The [facility] BREAST COMPOSITION: Scattered areas fibroglandular density. FINDINGS: DIAGNOSTIC CATEGORY 2--BENIGN FINDING. NO CHANGE FROM COMPARISON. Complex nodular appearance of the breasts, grossly stable but limiting diagnostic sensitivity. Progression of diffuse bilateral coarse and linear calcifications , partially secretory but overall benign in appearance. Scattered benign-appearing lymph nodes are present. RIGHT BREAST: No significant suspicious finding. LEFT BREAST: No significant suspicious finding. RECOMMENDATIONS: ROUTINE MAMMOGRAM AND CLINICAL EVALUATION IN 12 MONTHS. PLEASE NOTE: A NORMAL MAMMOGRAM DOES NOT EXCLUDE THE POSSIBILITY OF BREAST CANCER. A CLINICALLY SUSPICIOUS PALPABLE LUMP SHOULD BE BIOPSIED. Dictated by: Megan Reyes MD on 11/17/2021 at 11:01 Approved by: Megan Reyes MD on 11/17/2021 at 11:08 Normal The [facility] l *SARS-CoV-2 COVID-19on 03-03 [id number] Not Detected Normal Not Detected The [facility] Comment on above: Order Comment: The A ptima SARS-CoV-2 assay is a nucleic acid amplification test intended for the qualitative detection of RNA from SARS-CoV-2 isolated and purified from nasopharyngeal (CUTTER ALUMINUM SHEET),oropharyngeal (OP), nasal swab, sputum, and bronchoalveolar lavage (BAL) specimens from patients with signs and symptoms of infection who are suspected of COVID-19. Results are for the identification of SARS-CoV-2 RNA. The SARS-CoV-2 RNA is generally detectable during the acute phase of infection. The Aptima SARS-CoV-2 Assay on the [employer] system is intended for use by laboratory personnel specifically instructed and trained in the operation of the [employer] system. The Aptima SARS-CoV-2 assay is only for use under the Food and Drug Administration Emergency Use Authorization. Testing is limited to laboratories certified under the Clinical Laboratory Improvement Amendments of 1988 (CLIA), 42 U.S.C. ???263a, to perform high complexity tests. Not Detected: Not detected does not preclude SARS-CoV-2 infection and should not be used as the sole basis for patient management decisions. Not detected results must be combined with clinical observations, patient history, and epidemiological information. Performed By: #### 3 [id number] #### [facility] [address] [place] [address], [facility] BASIC METABOLIC PANELon 02-13 Calcium [Mass/Vol] 9.4 mg/dL Normal 8.6-10.3 [facility] Comment on above: Order Comment: No: D o not add to previous draw Performed By: #### 0 0071, [id number] #### [facility] [address] [place] [address], [facility] Chloride [Moles/Vol] 102 mmol/L Normal 98-107 The [facility] Comment on above: Order Comment: No: D o not add to previous draw Performed By: #### 0 0071, 79073 #### [facility] [address] [place] [address], [place] CO2 [Moles/Vol] 25 mmol/L Normal 21-31 The [facility] Comment on above: Order Comment: No: D o not add to previous draw Performed By: #### 0 0071, 13073 #### [facility] [address] [place] [address], [place] Creatinine [Mass/Vol] 1.13 mg/dL Normal 0.60-1.20 The [facility] Comment on above: Order Comment: No: D o not add to previous draw Performed By: #### 0 0071, 95197 #### [facility] [address] [place] [address], [place] GFR/1.73 sq M predicted among blacks MDRD (S/P/Bld) [Vol rate/Area] 59 ml/min/1.73sq m Abnormal >60 The [facility] Comment on above: Order Comment: No: D o not add to previous draw Performed By: #### 0 0071, 00079 #### [facility] [address] [place] [address], [place] GFR/1.73 sq M predicted among non-blacks MDRD (S/P/Bld) [Vol rate/Area] 49 ml/min/1.73sq m Abnormal >60 The [facility] Comment on above: Order Comment: No: D o not add to previous draw Performed By: #### 0 0071, 38114 #### [facility] [address] [place] [address], [place] Glucose [Mass/Vol] 127 mg/dL High 70-100 The [facility] Comment on above: Order Comment: No: D o not add to previous draw Performed By: #### 0 0071, 52587 #### [facility] [address] [place] [address], [place] Potassium [Moles/Vol] 3.9 mmol/L Normal 3.5-5.1 The [facility] Comment on above: Order Comment: No: D o not add to previous draw Performed By: #### 0 0071, 49004 #### [facility] [address] [place] [address], [place] Sodium [Moles/Vol] 134 mmol/L Low 136-145 The [facility] Comment on above: Order Comment: No: D o not add to previous draw Performed By: #### 0 0071, 81988 #### [facility] [address] [place] [address], [place] Urea nitrogen [Mass/Vol] 19 mg/dL Normal 7-25 The [facility] Comment on above: Order Comment: No: D o not add to previous draw Performed By: #### 0 0071, 85067 #### [facility] [address] CBC COMPLETE BLOOD COUNTon 03-03-2020 Erythrocyte distribution wid th (RBC) [Ratio] 14.6 % Normal 11.5-15.0 The [facility] Comment on above: Order Comment: No: D o not add to previous draw Performed By: #### 5 0608 #### [facility] [address] [place] [address], [facility] Hematocrit (Bld) [Volume fraction] 42.7 % Normal 36.0-45.0 The [facility] Comment on above: Order Comment: No: D o not add to previous draw Performed By: #### 5 0608 #### [facility] [address] [place] [id number], [facility] Hemoglobin (Bld) [Mass/Vol] 14.0 g/dL Normal 12.0-15. 0 The [facility] Comment on above: Order Comment: No: D o not add to previous draw Performed By: #### 5 0608 #### [facility] [address] [place] [address], [facility] IMM PLATELET FRAC 12.7 % High 0.8-6.3 The [facility] Comment on above: Order Comment: No: D o not add to previous draw Performed By: #### 5 0608 #### [facility] [address] [place] [address], [facility] MCH (RBC) [Entitic mass] 27.8 pg Normal 27.0-33.0 The [facility] Comment on above: Order Comment: No: D o not add to previous draw Performed By: #### 5 0608 #### [facility] [address] [place] [id number], [facility] MCHC (RBC) [Mass/Vol] 32.8 g/dL Normal 32.0-35.0 The [facility] Comment on above: Order Comment: No: D o not add to previous draw Performed By: #### 5 0608 #### [facility] [address] [place] [address], [facility] MCV (RBC) [Entitic vol] 84.9 fL Normal 82.0-98.0 T he [facility] Comment on above: Order Comment: No: D o not add to previous draw Performed By: #### 5 0608 #### [facility] [address] [place] [address], [facility] Nucleated RBC/100 WBC (Bld) [Ratio] 0 % Normal 0-0 The [facility] Comment on above: Order Comment: No: D o not add to previous draw Performed By: #### 5 0608 #### [facility] [address] [place] [address], [facility] PLAT CNT 242 10*3/uL Normal 150-400 The [facility] Comment on above: Order Comment: No: D o not add to previous draw Performed By: #### 5 0608 #### [facility] [address] [place] [address], [facility] RBC (Bld) [#/Vol] 5.03 10*6/uL High 3.80-5.00 The [facility] [facility] Comment on above: Order Comment: No: D o not add to previous draw Performed By: #### [id number] #### [facility] [address] [facility] [place] [address], [facility] WBC (Bld) [#/Vol] 9.50 10*3/uL Normal 4.00-10.60 [facility] Comment on above: Order Comment: No: D o not add to previous draw Performed By: #### [id number] #### [facility] [address] TROPONIN-Ion 03-03-2020 Troponin I.cardiac [Mass/Vol] 0.00 ng/mL Normal 0.00-0 .04 [facility] Comment on above: Order Comment: No: D o not add to previous draw Result Comment: REFE RENCE RANGES: 0.00 - 0.14 ng/ml NEGATIVE 0.15 - 0.25 ng/ml INDETERMINATE > 0.25 ng/ml INDICATIVE OF AN M.I. Performed By: #### 0 [id number], [id number] #### [facility] [address] CBCon 02-25-2020 ABSOLUTE BAS 0.1 10*3/uL Normal 0.0-0.2 [facility] ABSOLUTE EOS 0.50 10*3/uL Normal 0.0-0.7 [facility] ABSOLUTE NEUTROPHIL COUNT 5.0 10*3/uL Normal 1.4-6.5 [facility] Basophils/100 WBC (Bld) 1.5 % Normal 0.0-2.0 [facility] DTYPE AUTO DIFF Normal [facility] Eosinophils/100 WBC (Bld) 5.6 % Normal 0.0-11.0 [facility] Lymphocytes (Bld) [#/Vol] 1.90 10*3/uL Normal 1.2-3.4 [facility] Lymphocytes/100 WBC (Bld) 23.2 % Normal 20.0-55.0 [facility] Monocytes (Bld) [#/Vol] 0.7 10*3/uL Normal 0.0-0.7 [facility] Monocytes/100 WBC (Bld) 9.1 % Normal 0.0-10.0 [facility] Neutrophils/100 WBC (Bld) 60.6 % Normal 37.0-75.0 [facility] Erythrocyte distribution wid th (RBC) [Ratio] 14.4 % Normal 11.5-14.5 [facility] spital Hematocrit (Bld) [Volume fraction] 41.4 % Normal 36.0-48.0 [facility] Hemoglobin (Bld) [Mass/Vol] 13.4 g/dL Normal 12.0-16. 0 [facility] MCH (RBC) [Entitic mass] 28.2 pg Normal 26.0-35.0 [facility] MCHC (RBC) [Mass/Vol] 32.4 g/dL Normal 27.0-37.0 [facility] MCV (RBC) [Entitic vol] 86.9 fL Normal 80.0-100.0 [facility] Platelet mean volume (Bld) [Entitic vol] 11.6 fL High 7.4-11.0 [facility] spital Platelets (Bld) [#/Vol] 208 10*3/uL Normal 130.0-400.0 [facility] RBC (Bld) [#/Vol] 4.77 10*6/uL Normal 4.0-5.4 [facility] WBC (Bld) [#/Vol] 8.2 10*3/uL Normal 3.6-11.0 [facility] CBC, EDIF, PLATELETon 2019 ABSOLUTE BASOPHIL COUNT 0.1 10*3/uL 0 - 0.2 10* 3/uL [facility] Basophils/100 WBC (Bld) 1.5 % 0 - 2 % [facility] Differential cell count method Nom (Bld) AUTO DIFF % [facility] Eosinophils (Bld) [#/Vol] 0.50 10*3/uL 0 - 0.7 10*3/uL [facility] Eosinophils/100 WBC (Bld) 5.6 % 0 - 11 % [facility] Erythrocyte distribution width (RBC) [Ratio] 14.4 % 11.5 - 14.5 % [facility] Hematocrit (Bld) [Volume fraction] 41.4 % 36 - 48 % [facility] tem Hemoglobin (Bld) [Mass/Vol] 13.4 g/dL [facility] Interpretation and review of laboratory results Abnormal [facility] Lymphocytes (Bld) [#/Vol] 1.90 10*3/uL 1.2 - 3. 4 10*3/uL [facility] Lymphocytes/100 WBC (Bld) 23.2 % 20 - 55 % [facility] MCH (RBC) [Entitic mass] 28.2 pg 26 - 35 PG [facility] MCHC (RBC) [Mass/Vol] 32.4 g/dL [facility] MCV (RBC) [Entitic vol] 86.9 fL [facility] Monocytes (Bld) [#/Vol] 0.7 10*3/uL 0 - 0.7 10* 3/uL [facility] Monocytes/100 WBC (Bld) 9.1 % 0 - 10 % [facility] Neutrophils (Bld) [#/Vol] 5.0 10*3/uL 1.4 - 6.5 10*3/uL [facility] Neutrophils/100 WBC (Bld) 60.6 % 37 - 75 % [facility] Platelet mean volume (Bld) [Entitic vol] 11.6 fL High [facility] tem Platelets (Bld) [#/Vol] 208 10*3/uL 130 - 400 1 0*3/uL [facility] RBC (Bld) [#/Vol] 4.77 10*6/uL 4 - 5.4 10*6/uL [facility] WBC (Bld) [#/Vol] 8.2 10*3/uL 3.6 - 11 10*3/uL [facility] ECHOCARDIOGRAM PHARMACOLOGIC AL STRESS TESTon 02-25-2020 User, Interfaces - 0 02/25/2020 3:57 PM EDT APPROVED REPORT EXAM: Comprehensive 2D, Doppler, and color-flow Echocardiogram Echo Enhancing Agent Agent(s) / Amount(s) Used: [employer] Comments: C/O 3/10 chest tightness. Resolved during recovery stage. Conclusion Maximal dobutamine stress echocardiogram with no symptomatic, ECG, nor echocardiographic evidence for coronary artery ischemia. Echo Findings The Pre-Stress Echocardiogram showed normal left ventricular contractility with an estimated Ejection Fraction of about 55%. Normal wall motion in all segments on baseline images. The Post-Stress Echocardiogram showed normal left ventricular contractility with an estimated Ejection Fraction of about >70%. Normal left ventricular size and function with no regional wall motion abnormalities. Echo Procedure The patient underwent a Pharmacological Stress Test using Dobutamine. Blood pressure, heart rate, and EKG were monitored. An Echocardiogram was performed by rim technician in four stages in quad fashion. At peak stress, four selected images were obtained and placed side by side with resting images for comparison. Stress Test Details Test: Pharmacologic stress testing performed using Dobutamine and Atropine. HR Resting HR: 67 bpmMax Heart Rate (APMHR): 158 bpm Max HR Achieved: 134 bpmTarget HR (85% APMHR): 134 bpm % of APMHR: 84 Recovery HR: 88 bpm BP Resting BP: 118/58 mmHg Max BP: 134/64 mmHg ECG Medications Administered Dobutamine ( mg at ) Atropine ( mg at ) [facility] APPR YANG REPORT EXAM: Comprehensive 2D, Doppler, and color-flow Echocardiogram Echo Enhancing Agent Agent(s) / Amount(s) Used: [employer] Comments: C/O 09/22 chest tightness. Resolved during recovery stage. Conclusion Maximal dobutamine stress echocardiogram with no symptomatic, ECG, nor echocardiographic evidence for coronary artery ischemia. Echo Findings The Pre-Stress Echocardiogram showed normal left ventricular contractility with an estimated Ejection Fraction of about 55%. Normal wall motion in all segments on baseline images. The Post-Stress Echocardiogram showed normal left ventricular contractility with an estimated Ejection Fraction of about >70%. Normal left ventricular size and function with no regional wall motion abnormalities. Echo Procedure The patient underwent a Pharmacological Stress Test using Dobutamine. Blood pressure, heart rate, and EKG were monitored. An Echocardiogram was performed by rim technician in four stages in quad fashion. At peak stress, four selected images were obtained and placed side by side with resting images for comparison. Stress Test Details Test: Pharmacologic stress testing performed using Dobutamine and Atropine. HR Resting HR: 67 bpm Max Heart Rate (APMHR): 158 bpm Max HR Achieved: 134 bpm Target HR (85% APMHR): 134 bpm % of APMHR: 84 Recovery HR: 88 bpm BP Resting BP: 118/58 mmHg Max BP: 134/64 mmHg ECG Medications Administered Dobutamine ( mg at ) Atropine ( mg at ) [facility] MAGNESIUMon 02-25-2020 Magnesium [Mass/Vol] 2.2 mg/dL Normal 1.6-2.3 [facility] Magnesium [Mass/Vol] 2.2 mg/dL [facility] RENAL FUNCTION PANELon 02-24 Albumin [Mass/Vol] 4.0 G/dl 3.5 - 5 G/dl [facility] Calcium [Mass/Vol] 9.1 mg/dL [facility] Chloride [Moles/Vol] 102 mmol/L [facility] Comment on above: Please note: Triglyc eride levels of 600mg/dL or higher may positively bias chloride results by approximately 2.1 mmol CO2 [Moles/Vol] 28 mmol/L [facility] Creatinine [Mass/Vol] 1.29 mg/dL High [facility] GFR/1.73 sq M predicted among blacks MDRD (S/P/Bld) [Vol rate/Area] 54 mL/min/{1.73_m2} ml/min/1.73sq. m [facility] GFR/1.73 sq M predicted among non-blacks MDRD (S/P/Bld) [Vol rate/Area] 45 mL/min/{1.73_m2} ml/min/1.73sq. m [facility] GFR/1.73 sq M predicted among non-blacks MDRD (S/P/Bld) [Vol rate/Area] Average GFR for 60-69 years old = 85. [facility] Comment on above: Chronic Kidney disea se, GFR = <60. Kidney failure, GFR = <15. The GFR estimate is not adjusted for extreme body surface area or acute process, nor has it been validated for women or ethnic groups other than and . Glucose post fast [Mass/Vol] 117 mg/dL [facility] Comment on above: NORMAL <100 mg/dL PREDIABETES 101-126 mg/dL DIABETES 126 mg/dL or higher Interpretation and review of laboratory results Abnormal [facility] Phosphate [Mass/Vol] 3.9 mg/dL [facility] Potassium [Moles/Vol] 4.0 mmol/L [facility] Sodium [Moles/Vol] 137 mmol/L [facility] Urea nitrogen [Mass/Vol] 32 mg/dL High [facility] RENAL PANEL,FASTINGon 2019 Albumin [Mass/Vol] 4.0 G/dl Normal 3.5-5.0 [facility] Calcium [Mass/Vol] 9.1 mg/dL Normal 8.4-10.2 [facility] Chloride [Moles/Vol] 102 mmol/L Normal 98-107 [facility] Comment on above: Result Comment: Lior [place] note: Triglyceride levels of 600mg/dL or higher may positively bias chloride results by approximately 2.1 mmol CO2 [Moles/Vol] 28 mmol/L Normal 22-30 [facility] Creatinine [Mass/Vol] 1.29 mg/dL High 0.7-1.2 [facility] EST. GFR, 54 ml/min/1.73sq.m Normal [facility] EST. GFR,Non 45 ml/min/1.73sq.m Normal [facility] GFR/1.73 sq M predicted among non-blacks MDRD (S/P/Bld) [Vol rate/Area] Average GFR for 60-69 years old = 85. [facility] Comment on above: Result Comment: Center Human Resources Manager cody Kidney disease, GFR = <60. Kidney failure, GFR = <15. The GFR estimate is not adjusted for extreme body surface area or acute process, nor has it been validated for women or ethnic groups other than and . Glucose [Mass/Vol] 117 mg/dL High 70-100 [facility] Comment on above: Result Comment: NORMAL <100 mg/dL PREDIABETES 101-126 mg/dL DIABETES 126 mg/dL or higher PHOSPHOROUS 3.9 MG/DL Normal 2.5-4.5 [facility] Potassium [Moles/Vol] 4.0 mmol/L Normal 3.5-5.1 [facility] Sodium [Moles/Vol] 137 mmol/L Normal 137-145 [facility] Urea nitrogen [Mass/Vol] 32 mg/dL High 7-20 [facility] CBCon 02-24-2020 ABSOLUTE BAS 0.1 10*3/uL Normal 0.0-0.2 [facility] ABSOLUTE EOS 0.40 10*3/uL Normal 0.0-0.7 [facility] ABSOLUTE NEUTROPHIL COUNT 4.0 10*3/uL Normal 1.4-6.5 [facility] Basophils/100 WBC (Bld) 1.1 % Normal 0.0-2.0 [facility] DTYPE AUTO DIFF Normal [facility] Eosinophils/100 WBC (Bld) 5.2 % Normal 0.0-11.0 [facility] Lymphocytes (Bld) [#/Vol] 1.90 10*3/uL Normal 1.2-3.4 [facility] Lymphocytes/100 WBC (Bld) 26.9 % Normal 20.0-55.0 [facility] Monocytes (Bld) [#/Vol] 0.7 10*3/uL Normal 0.0-0.7 [facility] Monocytes/100 WBC (Bld) 9.4 % Normal 0.0-10.0 [facility] Neutrophils/100 WBC (Bld) 57.4 % Normal 37.0-75.0 [facility] Erythrocyte distribution wid th (RBC) [Ratio] 14.4 % Normal 11.5-14.5 [facility] sp[facility] Hematocrit (Bld) [Volume fraction] 41.3 % Normal 36.0-48.0 [facility] Hemoglobin (Bld) [Mass/Vol] 13.3 g/dL Normal 12.0-16. 0 [facility] MCH (RBC) [Entitic mass] 28.2 pg Normal 26.0-35.0 [facility] MCHC (RBC) [Mass/Vol] 32.2 g/dL Normal 27.0-37.0 [facility] MCV (RBC) [Entitic vol] 87.5 fL Normal 80.0-100.0 [facility] Platelet mean volume (Bld) [Entitic vol] 11.7 fL High 7.4-11.0 [facility] spital Platelets (Bld) [#/Vol] 197 10*3/uL Normal 130.0-400.0 [facility] RBC (Bld) [#/Vol] 4.72 10*6/uL Normal 4.0-5.4 [facility] WBC (Bld) [#/Vol] 7.0 10*3/uL Normal 3.6-11.0 [facility] CBC, EDIF, PLATELETon 2019 ABSOLUTE BASOPHIL COUNT 0.1 10*3/uL 0 - 0.2 10* 3/uL [facility] Basophils/100 WBC (Bld) 1.1 % 0 - 2 % A [facility] Differential cell count method Nom (Bld) AUTO DIFF % [facility] Eosinophils (Bld) [#/Vol] 0.40 10*3/uL 0 - 0.7 10*3/uL [facility] Eosinophils/100 WBC (Bld) 5.2 % 0 - 11 % [facility] Erythrocyte distribution width (RBC) [Ratio] 14.4 % 11.5 - 14.5 % [facility] Hematocrit (Bld) [Volume fraction] 41.3 % 36 - 48 % [facility] tem Hemoglobin (Bld) [Mass/Vol] 13.3 g/dL [facility] Interpretation and review of laboratory results Abnormal [facility] Lymphocytes (Bld) [#/Vol] 1.90 10*3/uL 1.2 - 3. 4 10*3/uL [facility] Lymphocytes/100 WBC (Bld) 26.9 % 20 - 55 % [facility] MCH (RBC) [Entitic mass] 28.2 pg 26 - 35 PG [facility] MCHC (RBC) [Mass/Vol] 32.2 g/dL [facility] MCV (RBC) [Entitic vol] 87.5 fL A [facility] Monocytes (Bld) [#/Vol] 0.7 10*3/uL 0 - 0.7 10* 3/uL [facility] Monocytes/100 WBC (Bld) 9.4 % 0 - 10 % A [facility] Neutrophils (Bld) [#/Vol] 4.0 10*3/uL 1.4 - 6.5 10*3/uL [facility] Neutrophils/100 WBC (Bld) 57.4 % 37 - 75 % [facility] Platelet mean volume (Bld) [Entitic vol] 11.7 fL High [facility] tem Platelets (Bld) [#/Vol] 197 10*3/uL 130 - 400 1 0*3/uL [facility] RBC (Bld) [#/Vol] 4.72 10*6/uL 4 - 5.4 10*6/uL [facility] WBC (Bld) [#/Vol] 7.0 10*3/uL 3.6 - 11 10*3/uL [facility] ISTAT TROPONIN Ion 0 Troponin I.cardiac [Mass/Vol] ng/mL Normal 0-0.08 [facility] Comment on above: Performed By: #### I TROT #### [place] [address] MAGNESIUMon 02-24-2020 Magnesium [Mass/Vol] 1.9 mg/dL Normal 1.6-2.3 [facility] Magnesium [Mass/Vol] 1.9 mg/dL [facility] RENAL FUNCTION PANELon 02-23 Albumin [Mass/Vol] 3.7 G/dl 3.5 - 5 G/dl [facility] Calcium [Mass/Vol] 8.9 mg/dL [facility] Chloride [Moles/Vol] 103 mmol/L [facility] Comment on above: Please note: Triglyc eride levels of 600mg/dL or higher may positively bias chloride results by approximately 2.1 mmol CO2 [Moles/Vol] 26 mmol/L [facility] Creatinine [Mass/Vol] 1.42 mg/dL [facility] GFR/1.73 sq M predicted among blacks MDRD (S/P/Bld) [Vol rate/Area] 48 mL/min/{1.73_m2} ml/min/1.73sq. m [facility] GFR/1.73 sq M predicted among non-blacks MDRD (S/P/Bld) [Vol rate/Area] 40 mL/min/{1.73_m2} ml/min/1.73sq. m [facility] GFR/1.73 sq M predicted among non-blacks MDRD (S/P/Bld) [Vol rate/Area] Average GFR for 60-69 years old = 85. [facility] Comment on above: Chronic Kidney disea se, GFR = <60. Kidney failure, GFR = <15. The GFR estimate is not adjusted for extreme body surface area or acute process, nor has it been validated for women or ethnic groups other than and . Glucose post fast [Mass/Vol] 105 mg/dL [facility] Comment on above: NORMAL <100 mg/dL PREDIABETES 101-126 mg/dL DIABETES 126 mg/dL or higher Interpretation and review of laboratory results Abnormal [facility] Phosphate [Mass/Vol] 4.4 mg/dL [facility] Potassium [Moles/Vol] 3.9 mmol/L [facility] Sodium [Moles/Vol] 136 mmol/L Low [facility] Urea nitrogen [Mass/Vol] 31 mg/dL High [facility] RENAL PANEL,FASTINGon 2019 Albumin [Mass/Vol] 3.7 G/dl Normal 3.5-5.0 [facility] Calcium [Mass/Vol] 8.9 mg/dL Normal 8.4-10.2 [facility] Chloride [Moles/Vol] 103 mmol/L Normal 98-107 [facility] Comment on above: Result Comment: Lior irleand note: Triglyceride levels of 600mg/dL or higher may positively bias chloride results by approximately 2.1 mmol CO2 [Moles/Vol] 26 mmol/L Normal 22-30 [facility] Creatinine [Mass/Vol] 1.42 mg/dL High 0.7-1.2 [facility] EST. GFR, 48 ml/min/1.73sq.m Normal [facility] EST. GFR,Non 40 ml/min/1.73sq.m [facility] GFR/1.73 sq M predicted among non-blacks MDRD (S/P/Bld) [Vol rate/Area] Average GFR for 60-69 years old = 85. [facility] Comment on above: Result Comment: Center Human Resources Manager cody Kidney disease, GFR = <60. Kidney failure, GFR = <15. The GFR estimate is not adjusted for extreme body surface area or acute process, nor has it been validated for women or ethnic groups other than and . Glucose [Mass/Vol] 105 mg/dL High 70-100 [facility] Comment on above: Result Comment: NORMAL <100 mg/dL PREDIABETES 101-126 mg/dL DIABETES 126 mg/dL or higher PHOSPHOROUS 4.4 MG/DL Normal 2.5-4.5 [facility] Potassium [Moles/Vol] 3.9 mmol/L Normal 3.5-5.1 [facility] Sodium [Moles/Vol] 136 mmol/L Low 137-145 [facility] Urea nitrogen [Mass/Vol] 31 mg/dL High 7-20 [facility] TROPONINon 02-24-2020 Troponin I.cardiac [Mass/Vol] ng/mL 0 - 0. 08 ng/mL [facility] CBCon 02-23-2020 Basophils/100 WBC (Bld) 1 % Normal 0.0-2.0 [facility] Comment on above: Performed By: #### A CBC #### Testing performed at [address] [place] [address] DTYPE AUTO DIFF Normal [facility] Comment on above: Result Comment: AUTO DIFF RESULTS VERIFIED BY SCAN Performed By: #### A CBC #### Testing performed at [address] [place] [address] Eosinophils/100 WBC (Bld) 2 % Normal 0.0-11.0 [facility] Comment on above: Performed By: #### A CBC #### Testing performed at [address] [place] [address] Lymphocytes/100 WBC (Bld) 13 % Low 20.0-55.0 [facility] Comment on above: Performed By: #### A CBC #### Testing performed at [address] [place] [address] Monocytes/100 WBC (Bld) 6 % Normal 0.0-10.0 [facility] Comment on above: Performed By: #### A CBC #### Testing performed at [address] [place] [address] Neutrophils/100 WBC (Bld) 78 % High 37.0-75.0 [facility] Comment on above: Performed By: #### A CBC #### Testing performed at [address] [place] [address] PLATELET COMMENT ADEQUATE Normal [facility] Comment on above: Result Comment: 1+ GIANT PLTS Performed By: #### A CBC #### Testing performed at [address] [address] RBC morphology finding Nom (Bld) 1+ Normal [facility] Comment on above: Result Comment: POIK ILOCYTE 1+ HYPOCHROMIA Performed By: #### A CBC #### [place] [address] WBC MORPHOLOGY <10% BANDS PRESENT Normal [facility] Comment on above: Performed By: #### A CBC #### Testing performed at [address] [address] Erythrocyte distribution wid th (RBC) [Ratio] 14.5 % Normal 11.5-14.5 [facility] Comment on above: Performed By: #### A CBC #### [place] [address] Hematocrit (Bld) [Volume fraction] 46.3 % Normal 3 6.0-48.0 [facility] Comment on above: Performed By: #### A CBC #### Testing performed at [address] [address] Hemoglobin (Bld) [Mass/Vol] 15.1 g/dL Normal 12.0-16. 0 [facility] Comment on above: Performed By: #### A CBC #### Testing performed at [address] [address] MCH (RBC) [Entitic mass] 28.4 pg Normal 26.0-35.0 [facility] Comment on above: Performed By: #### A CBC #### Testing performed at [address] [address] MCHC (RBC) [Mass/Vol] 32.7 g/dL Normal 27.0-37.0 [facility] Comment on above: Performed By: #### A CBC #### Testing performed at [address] [place] [address] MCV (RBC) [Entitic vol] 86.9 fL Normal 80.0-100.0 [facility] Comment on above: Performed By: #### A CBC #### Testing performed at [address] [address] Platelet mean volume (Bld) [Entitic vol] 11.3 fL High 7.4-11.0 [facility] Comment on above: Performed By: #### A CBC #### Testing performed at [address] [address] Platelets (Bld) [#/Vol] 252 10*3/uL Normal 130.0-400.0 [facility] Comment on above: Performed By: #### A CBC #### Testing performed at [address] [address] RBC (Bld) [#/Vol] 5.32 10*6/uL Normal 4.0-5.4 [facility] Comment on above: Performed By: #### A CBC #### Testing performed at [address] [address] WBC (Bld) [#/Vol] 10.0 10*3/uL Normal 3.6-11.0 [facility] Comment on above: Performed By: #### A CBC #### Testing performed at [address] [address] CBC, EDIF, PLATELETon 2019 Band form neutrophils/100 WBC (Bld) <10% BANDS PRESENT [facility] Basophils/100 WBC (Bld) 1 % 0 - 2 % A [facility] Differential cell count meth od Nom (Bld) AUTO DIFF % [facility] Comment on above: AUTO DIFF RESULTS VE RIFIED BY SCAN Eosinophils/100 WBC (Bld) 2 % 0 - 11 % [facility] Erythrocyte distribution wid th (RBC) [Ratio] 14.5 % 11.5 - 14.5 % [facility] Hematocrit (Bld) [Volume fraction] 46.3 % 3 6 - 48 % [facility] Hemoglobin (Bld) [Mass/Vol] 15.1 g/dL [facility] Interpretation and review of laboratory results Abnormal [facility] Lymphocytes/100 WBC (Bld) 13 % Low 20 - 55 % [facility] MCH (RBC) [Entitic mass] 28.4 pg 26 - 35 PG [facility] MCHC (RBC) [Mass/Vol] 32.7 g/dL [facility] MCV (RBC) [Entitic vol] 86.9 fL A [facility] Monocytes/100 WBC (Bld) 6 % 0 - 10 % A [facility] Neutrophils/100 WBC (Bld) 78 % High 37 - 75 % [facility] Platelet mean volume (Bld) [ Entitic vol] 11.3 fL High [facility] Platelet morphology finding Nom (Bld) ADEQUATE [facility] Comment on above: 1+ GIANT PLTS Platelets (Bld) [#/Vol] 252 10*3/uL 130 - 400 1 0*3/uL [facility] RBC (Bld) [#/Vol] 5.32 10*6/uL 4 - 5.4 10*6/uL [facility] RBC morphology finding Nom (Bld) 1+ [facility] Comment on above: POIKILOCYTE 1+ HYPOCHROMIA WBC (Bld) [#/Vol] 10.0 10*3/uL 3.6 - 11 10*3/uL [facility] CHEM 7 FASTINGon 02-23-2020 Chloride [Moles/Vol] 102 mmol/L Normal 98-107 [facility] Comment on above: Result Comment: Lior ireland note: Triglyceride levels of 600mg/dL or higher may positively bias chloride results by approximately 2.1 mmol Performed By: #### A CBC #### [place] [address] CO2 [Moles/Vol] 25 mmol/L Normal 22-30 [facility] Comment on above: Performed By: #### A CBC #### Testing performed at [facility] [place] [address] Creatinine [Mass/Vol] 1.55 mg/dL High 0.7-1.2 [facility] Comment on above: Performed By: #### A CBC #### Testing performed at [address] [address] EST. GFR, 44 ml/min/1.73sq.m [facility] Comment on above: Performed By: #### A CBC #### Testing performed at [address] [address] EST. GFR,Non 36 ml/min/1.73sq.m [facility] Comment on above: Performed By: #### A CBC #### Testing performed at [address] [address] GFR/1.73 sq M predicted among non-blacks MDRD (S/P/Bld) [Vol rate/Area] Average GFR for 60-69 years old = 85. [facility] Comment on above: Result Comment: Center Human Resources Manager cody Kidney disease, GFR = <60. Kidney failure, GFR = <15. The GFR estimate is not adjusted for extreme body surface area or acute process, nor has it been validated for women or ethnic groups other than and . Performed By: #### A CBC #### Testing performed at [address] [address] Glucose [Mass/Vol] 106 mg/dL High 70-100 [facility] Comment on above: Result Comment: NORMAL <100 mg/dL PREDIABETES 101-126 mg/dL DIABETES 126 mg/dL or higher Performed By: #### A CBC #### Testing performed at [address] [address] Potassium [Moles/Vol] 4.1 mmol/L Normal 3.5-5.1 [facility] Comment on above: Performed By: #### A CBC #### Testing performed at [address] [address] Sodium [Moles/Vol] 137 mmol/L Normal 137-145 [facility] Comment on above: Performed By: #### A CBC #### Testing performed at [place] [address] [place] [id number] Urea nitrogen [Mass/Vol] 30 mg/dL High - [facility] Comment on above: Performed By: #### A CBC #### Testing performed at [address] [place] [address] CHEM 7 (LYTES,BUN,CREA,GLUC) on 02-23-2020 Chloride [Moles/Vol] 102 mmol/L [facility] [employer] [facility] Comment on above: Please note: Triglyc eride levels of 600mg/dL or higher may positively bias chloride results by approximately 2.1 mmol CO2 [Moles/Vol] 25 mmol/L [facility] Creatinine [Mass/Vol] 1.55 mg/dL High Jarret Noovo [facility] System GFR/1.73 sq M predicted among blacks MDRD (S/P/Bld) [Vol rate/Area] 44 mL/min/{1.73_m2} ml/min/1.73sq. m [facility] GFR/1.73 sq M predicted among non-blacks MDRD (S/P/Bld) [Vol rate/Area] Average GFR for 60-69 years old = 85. [facility] Comment on above: Chronic Kidney disea se, GFR = <60. Kidney failure, GFR = <15. The GFR estimate is not adjusted for extreme body surface area or acute process, nor has it been validated for women or ethnic groups other than and . GFR/1.73 sq M predicted among non-blacks MDRD (S/P/Bld) [Vol rate/Area] 36 mL/min/{1.73_m2} ml/min/1.73sq.m [employer] System Glucose post fast [Mass/Vol] 106 mg/dL High [employer] Sys tem Comment on above: NORMAL <100 mg/dL PREDIABETES 101-126 mg/dL DIABETES 126 mg/dL or higher Interpretation and review of laboratory results Abnormal [employer] System Potassium [Moles/Vol] 4.1 mmol/L Jarret ta [facility] System Sodium [Moles/Vol] 137 mmol/L [facility] Urea nitrogen [Mass/Vol] 30 mg/dL [facility] ECHOCARDIOGRAMon 02-23-2020 User, Interfaces - 0 02/23/2020 5:24 PM EDT APPROVED REPORT Conclusion Left Ventricle : The left ventricular systolic function is normal. The left ventricular ejection fraction is within the normal range. LVEF is 55-60%. Transmitral Doppler flow pattern suggests impaired LV relaxation. Right Ventricle : The right ventricle is normal size. The right ventricular systolic function is normal. Left Ventricle The left ventricle is normal size. The left ventricular systolic function is normal. The left ventricular ejection fraction is within the normal range. There is normal left ventricular wall thickness. There is normal LV segmental wall motion. Transmitral Doppler flow pattern suggests impaired LV relaxation. There is no ventricular septal defect visualized. No left ventricle thrombus noted on this study. LVEF is 55-60%. Right Ventricle The right ventricle is normal size. The right ventricular systolic function is normal. There is normal right ventricular wall thickness. Atria The left atrium size is normal. The right atrium size is normal. The interatrial septum is intact with no evidence for an atrial septal defect. Aortic Valve Aortic valve is trileaflet. Normal cusp separation. There is no aortic valvular stenosis. No aortic regurgitation is present. There is no aortic valvular vegetation. Mitral Valve The mitral valve is normal in structure. No evidence of mitral valve stenosis. There is no mitral valve regurgitation noted. There is no evidence of mitral valve vegetations. There is no evidence of mitral valve prolapse. Tricuspid Valve The tricuspid valve is normal in structure. There is no tricuspid valve stenosis. There is no tricuspid valve regurgitation noted. There is no tricuspid valve vegetations. Pulmonic Valve The pulmonary valve is normal in structure. There is no pulmonic valvular stenosis. There is no pulmonic valvular regurgitation. There is no pulmonic valve vegetations. Great Vessels The aortic root is normal in size. The pulmonary artery is normal. The ascending aorta is normal in size. IVC is normal in size and collapses >50% with inspiration. Pericardium There is no pericardial effusion. There is no pleural effusion. EXAM: Comprehensive 2D, Doppler, and color-flow Echocardiogram 2D Dimensions IVSd 0.8 cm F: 0.6-0.9LVEF (Visual)46.93 % PWd 1.2 cm F: 0.6 - 0.9LA Zhtzfw76.3 mL LVDd 4.9 cm F: 3.8 - 5.2LA Volume Index13.49 mL/m2 (M/F) 16-34 LVDs 3.75 cm F: 2.2 - 3.5RV Major 3.45 cm Aortic Root 3.33 cm F: 2.7 - 3.3RV Minor7.07 cm Aortic Root Index1.4 cm/m2RVID Base (AP4)2.40 cm (M/F) 2.5-4.1 Ascending Aorta 3.09 cm F: 2.3 - 3.1Right Atrium 4.3 cm (M/F) 2.9-4.5 Ascending Aorta Index: 1.3 cm/m2 Left Atrium 3.19 cm F: 2.7 - 3.8 LVOT2.11 cm (M/F) 1.5-2.5 TAPSE 2.1 <1.7 cm LV Diastology E/A Ratio 0.6Septal E'0.08 (<.07 m/s) LAT E'0.06 (<.10 m/s) Aortic Valve LVOT Max0.82 (0.7-1.1 m/s)LVOT VTI17.09 cm AV DI0.64 (>0.25)AoV Peak Alberto.1.27 (0.5-1.3 m/s) AV Vmean 0.87 m/Barbara Peak GR.6.47 mmHg AO Mean GR.3.40 (<5 mmHg)AO VTI26.9 (18-25 cm) SAVANA (VTI)2.22 (2.5-4.5 cm2) Mitral Valve MV E Max Alberto.0.4 (0.4-1.3 m/s)MV A Velocity0.66 (0.4-1.3 m/s) E/A Ratio0.60MV PHT78.69 ms MVA PHT2.80 cm2MR Vmax0.92 m/s MV Dec [place] 136.59 cm/s2MV Decel. Gdeo661.44 (160-240 ms) Pulmonary Valve PV Peak Velocity0.9 (0.5-1.5 m/s)PV maxPG3.5 mmHg PV Vmax0.9 m/s studentSN [facility] APPR YANG REPORT Conclusion Left Ventricle : The left ventricular systolic function is normal. The left ventricular ejection fraction is within the normal range. LVEF is 55-60%. Transmitral Doppler flow pattern suggests impaired LV relaxation. Right Ventricle : The right ventricle is normal size. The right ventricular systolic function is normal. Left Ventricle The left ventricle is normal size. The left ventricular systolic function is normal. The left ventricular ejection fraction is within the normal range. There is normal left ventricular wall thickness. There is normal LV segmental wall motion. Transmitral Doppler flow pattern suggests impaired LV relaxation. There is no ventricular septal defect visualized. No left ventricle thrombus noted on this study. LVEF is 55-60%. Right Ventricle The right ventricle is normal size. The right ventricular systolic function is normal. There is normal right ventricular wall thickness. Atria The left atrium size is normal. The right atrium size is normal. The interatrial septum is intact with no evidence for an atrial septal defect. Aortic Valve Aortic valve is trileaflet. Normal cusp separation. There is no aortic valvular stenosis. No aortic regurgitation is present. There is no aortic valvular vegetation. Mitral Valve The mitral valve is normal in structure. No evidence of mitral valve stenosis. There is no mitral valve regurgitation noted. There is no evidence of mitral valve vegetations. There is no evidence of mitral valve prolapse. Tricuspid Valve The tricuspid valve is normal in structure. There is no tricuspid valve stenosis. There is no tricuspid valve regurgitation noted. There is no tricuspid valve vegetations. Pulmonic Valve The pulmonary valve is normal in structure. There is no pulmonic valvular stenosis. There is no pulmonic valvular regurgitation. There is no pulmonic valve vegetations. Great Vessels The aortic root is normal in size. The pulmonary artery is normal. The ascending aorta is normal in size. IVC is normal in size and collapses >50% with inspiration. Pericardium There is no pericardial effusion. There is no pleural effusion. EXAM: Comprehensive 2D, Doppler, and color-flow Echocardiogram 2D Dimensions IVSd 0.8 cm F: 0.6-0.9 LVEF (Visual) 46.93 % PWd 1.2 cm F: 0.6 - 0.9 LA Volume 31.3 mL LVDd 4.9 cm F: 3.8 - 5.2 LA Volume Index 13.49 mL/m2 (M/F) 16-34 LVDs 3.75 cm F: 2.2 - 3.5 RV Major 3.45 cm Aortic Root 3.33 cm F: 2.7 - 3.3 RV Minor 7.07 cm Aortic Root Index 1.4 cm/m2 RVID Base (AP4) 2.40 cm (M/F) 2.5-4.1 Ascending Aorta 3.09 cm F: 2.3 - 3.1 Right Atrium 4.3 cm (M/F) 2.9-4.5 Ascending Aorta Index: 1.3 cm/m2 Left Atrium 3.19 cm F: 2.7 - 3.8 LVOT 2.11 cm (M/F) 1.5-2.5 TAPSE 2.1 <1.7 cm LV Diastology E/A Ratio 0.6 Septal E' 0.08 (<.07 m/s) LAT E' 0.06 (<.10 m/s) Aortic Valve LVOT Max 0.82 (0.7-1.1 m/s) LVOT VTI 17.09 cm AV DI 0.64 (>0.25) AoV Peak Alberto. 1.27 (0.5-1.3 m/s) AV Vmean 0.87 m/s AO Peak GR. 6.47 mmHg AO Mean GR. 3.40 (<5 mmHg) AO VTI 26.9 (18-25 cm) SAVANA (VTI) 2.22 (2.5-4.5 cm2) Mitral Valve MV E Max Alberto. 0.4 (0.4-1.3 m/s) MV A Velocity 0.66 (0.4-1.3 m/s) E/A Ratio 0.60 MV PHT 78.69 ms MVA PHT 2.80 cm2 MR Vmax 0.92 m/s MV Dec [place] 136.59 cm/s2 MV Decel. Time 290.44 (160-240 ms) Pulmonary Valve PV Peak Velocity 0.9 (0.5-1.5 m/s) PV maxPG 3.5 mmHg PV Vmax 0.9 m/s [facility] ISTAT TROPONIN Ion 0 Troponin I.cardiac [Mass/Vol] ng/mL Normal 0-0.08 [facility] Comment on above: Performed By: #### I TROT #### Testing performed at [place] [address] [place] [address] Troponin I.cardiac [Mass/Vol] 0.07 ng/mL Normal 0-0.08 [facility] Troponin I.cardiac [Mass/Vol] ng/mL Normal 0-0.08 [facility] LIPID PANEL W CALCULATED LDL on 02-23-2020 Cholesterol [Mass/Vol] 177 mg/dL [facility] Cholesterol in HDL [Mass/Vol] 40 mg/dL [facility] Cholesterol in LDL [Mass/Vol] 98 mg/dL MG/DL [facility] Cholesterol in VLDL [Mass/Vol] 39 mg/dL High [facility] Cholesterol.total/Cholestero l in HDL [Mass ratio] 4.43 {ratio} RATIO [facility] Comment on above: RISK TOTAL/HDL RATIO MEN WOMEN 1/2 AVERAGE 3.43 3.27 AVERAGE 4.97 4.44 2X AVERAGE 9.55 7.05 3X AVERAGE 23.99 11.04 Interpretation and review of laboratory results Abnormal [facility] Triglyceride [Mass/Vol] 197 mg/dL High [facility] LIPID PROFILEon 02-23-2020 Cholesterol [Mass/Vol] 177 mg/dL Normal 107-217 [facility] Cholesterol in HDL [Mass/Vol] 40 mg/dL Normal 33-75 [facility] Cholesterol in LDL [Mass/Vol] 98 mg/dL Normal [facility] Cholesterol in VLDL [Mass/Vol] 39 mg/dL High 5.0-2 5 [facility] Cholesterol.total/Cholestero l in HDL [Mass ratio] 4.43 {ratio} Normal [facility] Comment on above: Result Comment: RISK TOTAL/HDL RATIO MEN WOMEN 1/2 AVERAGE 3.43 3.27 AVERAGE 4.97 4.44 2X AVERAGE 9.55 7.05 3X AVERAGE 23.99 11.04 Triglyceride [Mass/Vol] 197 mg/dL High 0-150 A [facility] MRSA SCREENon 02-23-2020 MRSA DNA DAVIN+probe Ql (Unsp spec) Negative Normal NE [facility] Comment on above: Performed By: #### M RSAST #### Testing performed at [facility] [address] [place] [address] MRSA DNA DAVIN+probe Ql (Unsp spec) Positive Abnormal NE [facility] Comment on above: Result Comment: TEST ING PERFORMED BY PCR Testing performed at [place] [address] Performed By: #### M RSAST #### Testing performed at [facility] [address] [place] [address] POCT GLUCOSEon 02-23-2020 Glucose [Mass/Vol] 109 mg/dL Abnormal 70 - 99 mg/dL [facility] Interpretation and review of laboratory results Abnormal [facility] PROTIMEon 02-23-2020 INR Coag (PPP) [Relative time] 0.89 {INR} Normal 0.87- 1.13 [facility] Comment on above: Result Comment: 2.0- 3.0 THERAPEUTIC RANGE 2.5-3.5 PROSTHETIC VALVE RANGE Performed By: #### A CBC #### Testing performed at [place] [id number] PT Coag (PPP) [Time] 9.7 s Low 10.0-13.0 [facility] Comment on above: Performed By: #### A CBC #### Testing performed at [place] [id number] PROTIME-INRon 02-23-2020 INR Coag (PPP) [Relative time] 0.89 {INR} [facility] Comment on above: 2.0-3.0 THERAPEUTIC RANGE 2.5-3.5 PROSTHETIC VALVE RANGE Interpretation and review of laboratory results Abnormal [facility] PT Coag (PPP) [Time] 9.7 s Low [facility] SCREEN: MRSA ONLY, NARES (IS OLATION SCREEN)on 02-23-2020 Interpretation and review of laboratory results Abnormal [facility] MRSA isol Org specific cx Ql (Nose) Negative NEGATIVE [facility] STAPHYOCOCCUS AUREUS BY PCR Positive Abnormal NEGATIVE [facility] Comment on above: TESTING PERFORMED BY PCR Testing performed at [place] [address] TROPONINon 02-23-2020 Troponin I.cardiac [Mass/Vol] ng/mL 0 - 0. 08 ng/mL [facility] Troponin I.cardiac [Mass/Vol] 0.07 ng/mL 0 - 0. 08 ng/mL [facility] Troponin I.cardiac [Mass/Vol] ng/mL 0 - 0. 08 ng/mL [facility] XR CHEST AP PORTABLEon 02-22 XR CHEST AP PORTABLE EXAMINATION: XR GONZALO ST AP PORTABLE HISTORY: chest pain COMPARISON: 02/09/2019 chest x-ray FINDINGS: LUNGS: No significant pulmonary parenchymal abnormalities. VASCULATURE: No increased pulmonary vasculature. PLEURA: No pneumothorax, effusion, or pleural thickening. CARDIAC: No cardiomegaly or cardiac silhouette abnormality. MEDIASTINUM: No visible mass or adenopathy. BONES: No fracture or visible bone lesion. OTHER: Negative. IMPRESSION: 1. No acute cardiopulmonary process. Normal [facility] User, Interfaces - 0 02/23/2020 7:37 AM EDT EXAMINATION: XR CHEST AP PORTABLE HISTORY: chest pain COMPARISON: 02/09/2019 chest x-ray FINDINGS: LUNGS: No significant pulmonary parenchymal abnormalities. VASCULATURE: No increased pulmonary vasculature. PLEURA: No pneumothorax, effusion, or pleural thickening. CARDIAC: No cardiomegaly or cardiac silhouette abnormality. MEDIASTINUM: No visible mass or adenopathy. BONES: No fracture or visible bone lesion. OTHER: Negative. IMPRESSION IMPRESSION: 1. No acute cardiopulmonary process. [facility] IMPRESSION: 1. No ac [place] cardiopulmonary process. [facility] EXAMINATION: XR CHES T AP PORTABLE HISTORY: chest pain COMPARISON: 02/09/2019 chest x-ray FINDINGS: LUNGS: No significant pulmonary parenchymal abnormalities. VASCULATURE: No increased pulmonary vasculature. PLEURA: No pneumothorax, effusion, or pleural thickening. CARDIAC: No cardiomegaly or cardiac silhouette abnormality. MEDIASTINUM: No visible mass or adenopathy. BONES: No fracture or visible bone lesion. OTHER: Negative. [facility] Discharge Summaryon 12-19-19 18 HIM IP Note OR Smoke Room Operator Normal [facility] Plan of Careon 12-18-2017 HIM IP Note OR Smoke Room Operator Normal [facility] Progress Noteon 12-18-2017 HIM IP Note OR Smoke Room Operator Normal [facility] HIM IP Note OR Smoke Room Operator Normal [facility] Op Noteon 12-17-2017 HIM IP Note OR Smoke Room Operator Normal [facility] Plan of Careon 12-17-2017 HIM IP Note OR Smoke Room Operator Normal [facility] HIM IP Note OR Smoke Room Operator Normal [facility] Progress Noteon 12-17-2017 HIM IP Note OR Smoke Room Operator Normal [facility] HIM IP Note OR Smoke Room Operator Normal [facility] CBCon 12-16-2017 Erythrocyte distribution wid th Auto Ratio (RBC) 14.6 % High 11.8-14.4 [facility] Comment on above: Performed By: #### C PBILC, MG ####[facility] [address] [place] [address] Erythrocytes (RBC) 0.0 per 100 WBC Normal 0.0 M [facility] Comment on above: Result Comment: [address] [place] [address] Performed By: #### C PBILC, MG ####[facility] [address] [place] [address] Erythrocytes (RBC) 4.30 10*6/uL Normal 3.95-5.11 [facility] Comment on above: Performed By: #### C PBILC, MG ####[facility]izolutionMtpod[facility]pedcvn98[address] [place] [address] Hematocrit (HCT) 38.3 % Normal 36.3-47.1 [facility] Comment on above: Performed By: #### C PBILC, MG ####[facility] [address] [place] [address] Hemoglobin mass conc (Bld) 11.9 g/dL Normal 11.9-15.1 [facility] Comment on above: Performed By: #### C PBILC, MG ####[facility] Hospital[facility]izolutionZkmegiprphsu9583 [place] [address] MCH 27.7 pg Normal 25.2-33.5 [facility] Comment on above: Performed By: #### C PBILC, MG ####[place] [address] [place] [address] MCHC mass conc (RBC) 31.1 g/dL Normal 28.4-34.8 [facility] Comment on above: Performed By: #### C PBILC, MG ####[place] [address] [place] [address] MCV 89.1 fL Normal 82.6-102.9 [facility] Comment on above: Performed By: #### C PBILC, MG ####[place] [address] [place] [address] Platelets See Reflexed IPF Result Normal 138-453 M [facility] Comment on above: Performed By: #### C PBILC, MG ####[address] [address] WBC (Leukocytes) 6.3 10*3/uL Normal 3.5-11.3 [facility] Comment on above: Performed By: #### C PBILC, MG ####[facility] [address] [place] [address] Platelet mean volume (PMV) NOT REPORTED Normal 8.1-13. 5 [facility] Comment on above: Performed By: #### C PBILC, MG ####[address] [address] Comp Metabolic Pr/rfx MGon 0 12-16-2017 (cont.) Normal [facility] Comment on above: Result Comment: Aver age GFR for 60-69 years old: 85 mL/min/1.73sq mChronic Kidney Disease: <60 mL/min/1.73sq mKidney failure: <15 mL/min/1.73sq meGFR calculated using average adult body mass. Additional eGFR calculator available at:[email or web address] [facility] [address] [place] [address] Performed By: #### C PBILC, MG ####[address] [place] [address] Alanine aminotransferase (ALT) 12 U/L Normal 5-33 [facility] Comment on above: Performed By: #### C PBILC, MG ####[address] [place] [address] Albumin 3.3 g/dL Low 3.5-5.2 [facility] Comment on above: Performed By: #### C PBILC, MG ####[address] [place] [address] Albumin/Globulin Ratio 1.3 {ratio} Normal 1.0-2.5 M [facility] Comment on above: Performed By: #### C PBILC, MG ####[facility] [address] [place] [address] Alkaline Phos 130 U/L High 35-104 [facility] Comment on above: Performed By: #### C PBILC, MG ####[facility] [address] [place] [address] Anion gap 11 mmol/L Normal 9-17 [facility] Comment on above: Performed By: #### C PBILC, MG ####[facility] [address] [place] [address] Aspartate aminotransferase (AST) 15 U/L Normal <32 [facility] Comment on above: Performed By: #### C PBILC, MG ####[facility] [address] [place] [address] Bilirubin Ql (U) 0.30 mg/dL Normal 0.3-1.2 [facility] Comment on above: Performed By: #### C PBILC, MG ####[facility] [address] [place] [address] Calcium 8.1 mg/dL Low 8.6-10.4 [facility] Comment on above: Performed By: #### C PBILC, MG ####[facility] [address] [place] [address] Chloride 107 mmol/L Normal 98-107 [facility] Comment on above: Performed By: #### C PBILC, MG ####[facility] [address] [place] [address] CO2 22 mmol/L Normal 20-31 [facility] Comment on above: Performed By: #### C PBILC, MG ####[facility] [place] [address] Creatinine 0.90 mg/dL Normal 0.50-0.90 [facility] Comment on above: Performed By: #### C PBILC, MG ####[facility] [address] [place] [address] eGFR (non-black) mL/min/{1.73_m2} Normal >60 [facility] Comment on above: Performed By: #### C PBILC, MG ####[facility] [address] [place] [address] Glucose mass conc 95 mg/dL Normal 70-99 [facility] Comment on above: Performed By: #### C PBILC, MG ####[facility] [address] [place] [address] Potassium molar conc 4.2 mmol/L Normal 3.7-5.3 [facility] Comment on above: Performed By: #### C PBILC, MG ####[facility] [address] [place] [address] Protein 5.9 g/dL Low 6.4-8.3 [facility] Comment on above: Performed By: #### C PBILC, MG ####[address] [place] [address] Sodium 140 mmol/L Normal 135-144 [facility] Comment on above: Performed By: #### C PBILC, MG ####[address] [place] [address] Urea nitrogen 20 mg/dL Normal 8-23 [facility] Comment on above: Performed By: #### C PBILC, MG ####[address] [place] [address] BUN/CRE Ratio NOT REPORTED Normal 9-20 [facility] Comment on above: Performed By: #### C PBILC, MG ####[address] [place] [address] Staging: NOT REPORTED Normal [facility] Comment on above: Performed By: #### C PBILC, MG ####[address] [place] [address] Lipid Profileon 12-16-2017 Cholesterol 150 mg/dL Normal <[address] [facility] Comment on above: Result Comment: Chol esterol Guidelines: <200 Desirable 200-240 Borderline >240 Undesirable Performed By: #### C PBILC, MG ####[address] [place] [address] Cholesterol to HDL Ratio 4.1 {ratio} Normal <5 [facility] Comment on above: Performed By: #### C PBILC, MG ####[address] [place] [address] HDL Cholesterol 37 mg/dL Low >40 [facility] Comment on above: Result Comment: HDL Guidelines: <40 Undesirable 40-59 Borderline >59 Desirable Performed By: #### C PBILC, MG ####[facility] [address] [place] [address] LDL Cholesterol 96 mg/dL Normal 0-130 [facility] Comment on above: Result Comment: LDL Guidelines: <100 Desirable 100-129 Near to/above Desirable 130-159 Borderline >159 UndesirableDirect (measured) LDL and calculated LDL are not interchangeable tests. Performed By: #### C PBILC, MG ####[facility] [address] [place] [address] Triglyceride 85 mg/dL Normal <150 [facility] Comment on above: Result Comment: Trig lyceride Guidelines: <150 Desirable 150- 199 Borderline 200-499 High >499 Very high Based on AHA Guidelines for fasting triglyceride, April 2012.[employer] [address] [place] [address] Performed By: #### C PBILC, MG ####[facility] [address] [place] [address] Cholesterol in VLDL mass conc NOT REPORTED Normal 1-30 [facility] Comment on above: Performed By: #### C PBILC, MG ####[facility] [address] [place] [address] Magnesiumon 12-16-2017 Magnesium 2.2 mg/dL Normal 1.6-2.6 [facility] Comment on above: Result Comment: [employer] [address] [place] [address] Performed By: #### C PBILC, MG ####[facility] [address] [place] [address] PLT, Immature Fract.on 12-16 Platelet, Fluoresc. 192 k/uL Normal 138-453 [facility] Comment on above: Result Comment: ORDE RED BY [employer] [address] [place] [address] Performed By: #### C PBILC, MG ####Lu Ahp[address]opftsbl8368 [place] [address] PLT, Immature Fract. 14.9 % High 1.1-10.3 [facility] Comment on above: Result Comment: ORDE RED BY LAB Performed By: #### C PBJOSE FC, MG ####[facility] Bmugvtnwsxrf8364 [place] [address] Plan of Careon 12-16-2017 HIM IP Note OR Smoke Room Operator Normal [facility] HIM IP Note OR Smoke Room Operator Normal [facility] HIM IP Note OR Smoke Room Operator Normal [facility] HIM IP Note OR Smoke Room Operator Normal [facility] Progress Noteon 12-16-2017 HIM IP Note OR Smoke Room Operator Normal [facility] HIM IP Note OR Smoke Room Operator Normal [facility] TSH w/reflex to FT4on 2017 Thyroid stimulating hormone (TSH) 2.46 m[IU]/L Normal 0.30-5.00 [facility] Comment on above: Result Comment: [facility] [place] [address] Performed By: #### C CARLOS, MG ####[facility] [address]lbtrqcsdokd7398 [place] [address] CBCon 12-15-2017 Erythrocyte distribution wid th Auto Ratio (RBC) 14.6 % High 11.8-14.4 [facility] Comment on above: Performed By: #### C BC, IPF ####[facility] [address]cygzltrdi39[address] [place] [address] Erythrocytes (RBC) 0.0 per 100 WBC Normal 0.0 M [facility] Comment on above: Result Comment: [facility] [address] [place] [address] Performed By: #### C BC, IPF ####[facility] Kw[address]lawh[address]25 [place] [address] Erythrocytes (RBC) 4.49 10*6/uL Normal 3.95-5.11 [facility] Comment on above: Performed By: #### C BC, IPF ####[facility] Qgnxftbqmbsq7171 [place] [address] Hematocrit (HCT) 40.3 % Normal 36.3-47.1 [facility] Comment on above: Performed By: #### C BC, IPF ####[facility] Ighiqcefnper9744 [place] [address] Hemoglobin mass conc (Bld) 12.5 g/dL Normal 11.9-15.1 [facility] Comment on above: Performed By: #### C BC, IPF ####[facility] [place] [address] MCH 27.8 pg Normal 25.2-33.5 [facility] Comment on above: Performed By: #### C BC, IPF ####[facility] [address] [address] MCHC mass conc (RBC) 31.0 g/dL Normal 28.4-34.8 [facility] Comment on above: Performed By: #### C BC, IPF ####[facility] [address]uvqwnlz7[address] [place] [address] MCV 89.8 fL Normal 82.6-102.9 [facility] Comment on above: Performed By: #### C BC, IPF ####[facility] Tksjsotgmfoh9712 [place] [address] Platelets See Reflexed IPF Result Normal 138-453 M [facility] Comment on above: Performed By: #### C BC, IPF ####[facility] Ozk[address]oxzonti3558 [place] [address] WBC (Leukocytes) 5.7 10*3/uL Normal 3.5-11.3 [facility] Comment on above: Performed By: #### C BC, IPF ####[facility] [place], [place] [id number] Platelet mean volume (PMV) NOT REPORTED Normal 8.1-13. 5 [facility] Comment on above: Performed By: #### C BC, IPF ####[place] [address] [place], [place] [id number] CTA CHEST W CONTRASTon 12-15 CTA CHEST W CONTRAST FINAL REPORTEXAM: C TA CHEST W CONTRASTHISTORY: CHEST PAIN, ACUTE, PULMONARY EMBOLISM SUSPECTED TECHNIQUE: CT of the chest was performed following the administration of IV contrast. Axial, coronal and sagittal images were reconstructed. PRIORS: Chest radiographs from the same date. FINDINGS: Medical devices: None.Thyroid: Normal.Lymph nodes: No supraclavicular, axillary, mediastinal, or hilar lymphadenopathy.Vasculature: Aorta and main pulmonary artery diameters are normal in caliber. There are no filling defects to indicate pulmonary embolism.Heart: No coronary artery calcification. No pericardial effusion.Other mediastinal structures: Normal.Lung parenchyma: Normal.Airways: Normal.Pleura: Normal.Chest wall and spine: Multilevel degenerate change of the spine.Upper abdomen: Unremarkable appearance of the visualized upper abdominal structures.IMPRESSION: Impression: No acute intrathoracic abnormality. No pulmonary embolism. Interpreted by:Jose RandleSigned by:Jose Randle18Final result Normal [facility] Comp Metab w/Bili Pron 12-15 (cont.) Normal [facility] Comment on above: Result Comment: Aver age GFR for 60-69 years old: 85 mL/min/1.73sq mChronic Kidney Disease: <60 mL/min/1.73sq mKidney failure: <15 mL/min/1.73sq meGFR calculated using average adult body mass. Additional eGFR calculator available at:[email or web address]/multiple_[email or web address] [facility] [address] [place], [place] [address]8 ([phone] Performed By: #### C PBILC, MG ####[facility] [address]ukm[address]q64[address] [place] [address] Alanine aminotransferase (ALT) 12 U/L Normal 5-33 [facility] Comment on above: Performed By: #### C PBILC, MG ####[facility] [address]oxahibxlmf7986 [place] [address] Albumin 3.6 g/dL Normal 3.5-5.2 [facility] Comment on above: Performed By: #### C PBILC, MG ####[facility] Bgbetezzvsld0296 [place] [address] Albumin/Globulin Ratio 1.4 {ratio} Normal 1.0-2.5 M [facility] Comment on above: Performed By: #### C PBILC, MG ####[facility] Cjvxgdrugyyv5369 [place] [address] Alkaline Phos 134 U/L High 35-104 [facility] Comment on above: Performed By: #### C PBILC, MG ####[facility] [address]cvbuqizsqkr4704 [place] [address] Anion gap 10 mmol/L Normal 9-17 [facility] Comment on above: Performed By: #### C PBILC, MG ####[facility] Cwmdtrggdhdi9784 [place] [address] Aspartate aminotransferase (AST) 16 U/L Normal <32 [facility] Comment on above: Performed By: #### C PBILC, MG ####[facility] Oalcsibauxuh6414 [place] [address] Bilirubin (direct) 0.10 mg/dL Normal <0.31 [facility] Comment on above: Performed By: #### C PBILC, MG ####[facility] Wfdfzcqdcfjr0201 [place] [address] Bilirubin Ql (U) 0.47 mg/dL Normal 0.3-1.2 [facility] Comment on above: Performed By: #### C PBILC, MG ####[facility] [place] [address] Bilirubin, Indirect 0.37 mg/dL Normal 0.00-1.00 [facility] Comment on above: Performed By: #### C PBILC, MG ####[facility] [place] [address] Calcium 8.3 mg/dL Low 8.6-10.4 [facility] Comment on above: Performed By: #### C PBILC, MG ####[address] [address] Chloride 106 mmol/L Normal 98-107 [facility] Comment on above: Performed By: #### C PBILC, MG ####[address] [address] CO2 22 mmol/L Normal 20-31 [facility] Comment on above: Performed By: #### C PBILC, MG ####[address] [address] Creatinine 0.73 mg/dL Normal 0.50-0.90 [facility] Comment on above: Performed By: #### C PBILC, MG ####[place] [address] [place] [address] eGFR (non-black) mL/min/{1.73_m2} Normal >60 [facility] Comment on above: Performed By: #### C PBILC, MG ####[facility] [place] [address] Glucose mass conc 100 mg/dL High 70-99 [facility] Comment on above: Performed By: #### C PBILC, MG ####[place] [address] [place] [address] Potassium molar conc 3.9 mmol/L Normal 3.7-5.3 [facility] Comment on above: Performed By: #### C PBILC, MG ####[address] [place] [address] Protein 6.1 g/dL Low 6.4-8.3 [facility] Comment on above: Performed By: #### C PBILC, MG ####[facility] [address]ills[address]dkpf[address] [place] [address] Sodium 138 mmol/L Normal 135-144 [facility] Comment on above: Performed By: #### C PBILC, MG ####[facility] Xlsekplaqyks9928 [place] [address] Urea nitrogen 15 mg/dL Normal 8-23 [facility] Comment on above: Performed By: #### C PBILC, MG ####[facility] [address] [place] [address] Staging: NOT REPORTED Normal [facility] Comment on above: Performed By: #### C PBILC, MG ####[facility] [address]fr[address] [place] [address] Consulton 12-15-2017 HIM IP Note OR Smoke Room Operator Normal [facility] ED Noteon 12-15-2017 HIM IP Note OR Smoke Room Operator Normal [facility] History and Physicalon 12-15 HIM IP Note OR Smoke Room Operator Normal [facility] Magnesiumon 12-15-2017 Magnesium 2.1 mg/dL Normal 1.6-2.6 [facility] Comment on above: Result Comment: [address] [address] Performed By: #### C PBILC, MG ####[address] [address] PLT, Immature Fract.on 12-15 Platelet, Fluoresc. 214 k/uL Normal 138-453 [facility] Comment on above: Result Comment: ORDE RED BY LABSelect [facility]ullPre[facility] [place] [address] Performed By: #### C BC, IPF ####[facility] [place] [address] PLT, Immature Fract. 13.5 % High 1.1-10.3 [facility] Comment on above: Result Comment: ORDE RED BY LAB Performed By: #### C BC, IPF ####[address] [address] Progress Noteon 12-15-2017 HIM IP Note OR Smoke Room Operator Normal [facility] Trop/Myoglobinon 12-15-2017 Myoglobin 33 ng/mL Normal 25-58 [facility] Comment on above: Result Comment: [facility] [employer] [address] [place] [address] Performed By: #### E CENZ ####[address] [address] Troponin I.cardiac mass conc Normal [facility] Comment on above: Result Comment: Refe rence Range: <0.03 Within reference range. 0.03-0.09 Possible myocardial damage.Repeat at appropriate intervals to rule out chronic elevation. >= 0.10 Indicative of myocardial damage.Patients with high levels of Biotin oral intake (i.e >5mg/day) may have falsely decreased Troponin T levels. Samples collected within 8 hours of biotin intake may require additional information for diagnosis. Performed By: #### E CENZ ####[address] [address] Troponin T.cardiac mass conc ug/L Normal <0.03 [facility] Comment on above: Result Comment: Trop onin T results cannot be compared to Troponin-I results. Performed By: #### E CENZ ####[address] [address] Myoglobin 35 ng/mL Normal 25-58 [facility] Comment on above: Result Comment: [facility] [address] [place] [address] Performed By: #### E CENZ ####[facility] [place] [address] Troponin I.cardiac mass conc Normal [facility] Comment on above: Result Comment: Refe rence Range: <0.03 Within reference range. 0.03-0.09 Possible myocardial damage.Repeat at appropriate intervals to rule out chronic elevation. >= 0.10 Indicative of myocardial damage.Patients with high levels of Biotin oral intake (i.e >5mg/day) may have falsely decreased Troponin T levels. Samples collected within 8 hours of biotin intake may require additional information for diagnosis. Performed By: #### E CENZ ####[facility] [place] [address] Troponin T.cardiac mass conc ug/L Normal <0.03 [facility] Comment on above: Result Comment: Trop onin T results cannot be compared to Troponin-I results. Performed By: #### E CENZ ####[facility] [place] [address] Troponinon 12-15-2017 Troponin I.cardiac mass conc Normal [facility] Comment on above: Result Comment: Refe rence Range: <0.03 Within reference range. 0.03-0.09 Possible myocardial damage.Repeat at appropriate intervals to rule out chronic elevation. >= 0.10 Indicative of myocardial damage.Patients with high levels of Biotin oral intake (i.e >5mg/day) may have falsely decreased Troponin T levels. Samples collected within 8 hours of biotin intake may require additional information for diagnosis.Performed at [address] [place] [address] ([phone] Performed By: #### B CUTTER ALUMINUM SHEET, LIP, TROPI, DIME, PTT, CDP, CMPX, IPF, MG ####[address] [place] [address] Troponin T.cardiac mass conc ug/L Normal <0.03 [facility] Comment on above: Result Comment: Trop onin T results cannot be compared to Troponin-I results. Performed By: #### B CUTTER [employer] SHEET, LIP, TROPI, DIME, PTT, CDP, CMPX, IPF, MG ####[address] [place] [address] APTTon 12-14-2017 aPTT 27.3 s Normal 23.2-34.4 [facility] Comment on above: Result Comment: Perf ormed at [address] [place] [address] Performed By: #### B CUTTER ALUMINUM SHEET, LIP, TROPI, DIME, PTT, CDP, CMPX, IPF, MG ####[address] [place] [address] Brain Natri. Peptideon 12-14 BNP 49 pg/mL Normal <300 [facility] Comment on above: Result Comment: Pro- BNP results cannot be compared to BNP results. Performed By: #### B C[employer] SHE[employer], LIP, TROPI, DIME, PTT, CDP, CMPX, IPF, MG ####[address] [place] [address] BNP Normal [facility] Comment on above: Result Comment: Pro- BNP Reference Range:Rule Out: <300Grey Zone: Age <50 300-450 Age 50-75 300-900 Age >75 300-1800Usually represents mild to moderate HF but other cardiopulmonary causes cannot be ruled out.Rule In: Age <50 >450 Age 50-75 >900 Age >75 >1800Performed at [address] [place] [address] Performed By: #### B CUTTER [employer]UMINUM SHEET, LIP, TROPI, DIME, PTT, CDP, CMPX, IPF, MG ####[address] , [place] [address] CBC with Diffon 12-14-2017 Abs. Basophil 0.09 k/uL Normal 0.00-0.20 [facility] Comment on above: Performed By: #### B CUTTER ALUMINUM SHEET, LIP, TROPI, DIME, PTT, CDP, CMPX, IPF, MG ####[address] , [place] [address] Abs.Neutrophil (Seg) 5.13 k/uL Normal 1.50-8.10 [facility] Comment on above: Performed By: #### B CUTTER [employer]UMINUM SHEET, LIP, TROPI, DIME, PTT, CDP, CMPX, IPF, MG ####[address] , [place] [address] Basophils/100 WBC Auto (Bld) 1 % Normal 0-2 [facility] Comment on above: Performed By: #### B CUTTER [employer]UMINUM SHEET, LIP, TROPI, DIME, PTT, CDP, CMPX, IPF, MG ####[address] , [place] [address] Eosinophils 0.40 10*3/uL Normal 0.00-0.44 [facility] Comment on above: Performed By: #### B CUTTER [employer]UMINUM SHEET, LIP, TROPI, DIME, PTT, CDP, CMPX, IPF, MG ####[address] , [place] [address] Eosinophils/100 leukocytes 5 % High 1-4 [facility] Comment on above: Performed By: #### B CUTTER [employer]IN[employer] SHEET, LIP, TROPI, DIME, PTT, CDP, CMPX, IPF, MG ####[address] , [place] [address] Erythrocyte distribution wid th Auto Ratio (RBC) 14.6 % High 11.8-14.4 [facility] Comment on above: Performed By: #### B CUTTER ALUMINUM SHEET, LIP, TROPI, DIME, PTT, CDP, CMPX, IPF, MG ####[address] , [facility]83 Erythrocytes (RBC) 0.0 per 100 WBC Normal 0.0 M [facility] Comment on above: Performed By: #### B CUTTER ALUMINUM SHEET, LIP, TROPI, DIME, PTT, CDP, CMPX, IPF, MG ####[address] , [facility]83 Erythrocytes (RBC) 5.04 10*6/uL Normal 3.95-5.11 [facility] Comment on above: Performed By: #### B CUTTER ALUMINUM SHEET, LIP, TROPI, DIME, PTT, CDP, CMPX, IPF, MG ####[address] , [place] [address] Granulocytes/100 WBC (Bld) % Normal 0.00-0.30 [facility] Comment on above: Result Comment: Perf ormed at [address] [place] [address] Performed By: #### B CUTTER ALUMINUM SHEET, LIP, TROPI, DIME, PTT, CDP, CMPX, IPF, MG ####[address] [place] [address] Hematocrit (HCT) 43.7 % Normal 36.3-47.1 [facility] Comment on above: Performed By: #### B CUTTER ALUMINUM SHEET, LIP, TROPI, DIME, PTT, CDP, CMPX, IPF, MG ####[address] , [facility]83 Hemoglobin mass conc (Bld) 14.1 g/dL Normal 11.9-15.1 [facility] Comment on above: Performed By: #### B CUTTER [employer]IN[employer] SHEET, LIP, TROPI, DIME, PTT, CDP, CMPX, IPF, MG ####[address] [place] [address] Immature granulocytes #/vol (Bld) 0 % Normal 0 [facility] Comment on above: Performed By: #### B CUTTER [employer]INUM SHEET, LIP, TROPI, DIME, PTT, CDP, CMPX, IPF, MG ####[address] , [place] [address] Lymphocytes 2.57 10*3/uL Normal 1.10-3.70 [facility] Comment on above: Performed By: #### B CUTTER [employer]UMINUM SHEET, LIP, TROPI, DIME, PTT, CDP, CMPX, IPF, MG ####[address] , [place] [address] Lymphocytes/100 leukocytes 29 % Normal 24-43 [facility] Comment on above: Performed By: #### B CUTTER [employer]UMINUM SHEET, LIP, TROPI, DIME, PTT, CDP, CMPX, IPF, MG ####[address] , [place] [address] MCH 28.0 pg Normal 25.2-33.5 [facility] Comment on above: Performed By: #### B CUTTER [employer]UMINUM SHEET, LIP, TROPI, DIME, PTT, CDP, CMPX, IPF, MG ####[address] , [place] [address] MCHC mass conc (RBC) 32.3 g/dL Normal 28.4-34.8 [facility] Comment on above: Performed By: #### B C[employer] SHEET, LIP, TROPI, DIME, PTT, CDP, CMPX, IPF, MG ####[address] , [place] [address] MCV 86.7 fL Normal 82.6-102.9 [facility] Comment on above: Performed By: #### B CUTTER [employer]UMINUM SHEET, LIP, TROPI, DIME, PTT, CDP, CMPX, IPF, MG ####[address] , [facility]83 Monocytes 0.74 10*3/uL Normal 0.10-1.20 [facility] Comment on above: Performed By: #### B CUTTER [employer]UMINUM SHEET, LIP, TROPI, DIME, PTT, CDP, CMPX, IPF, MG ####[address] [place] [address] Monocytes/100 leukocytes 8 % Normal 3-12 [facility] Comment on above: Performed By: #### B CUT[employer]UMINUM SHEET, LIP, TROPI, DIME, PTT, CDP, CMPX, IPF, MG ####[address] [place] [address] Neutrophil (Seg) 57 % Normal 36-65 [facility] Comment on above: Performed By: #### B CUTTER [employer]UMINUM SHEET, LIP, TROPI, DIME, PTT, CDP, CMPX, IPF, MG ####[address] [place] [address] Platelets See Reflexed IPF Result Normal 138-453 M [facility] Comment on above: Performed By: #### B CUTTER [employer]UMINUM SHEET, LIP, TROPI, DIME, PTT, CDP, CMPX, IPF, MG ####[address] [place] [address] WBC (Leukocytes) 9.0 10*3/uL Normal 3.5-11.3 [facility] Comment on above: Performed By: #### B CUTTER ALUMINUM SHEET, LIP, TROPI, DIME, PTT, CDP, CMPX, IPF, MG ####[address] [place] [address] Auto Diff Performed NOT REPORTED Normal [facility] Comment on above: Performed By: #### B CUTTER ALUMINUM SHEET, LIP, TROPI, DIME, PTT, CDP, CMPX, IPF, MG ####[address] [place] [address] Erythrocyte morphology NOT REPORTED Normal [facility] Comment on above: Performed By: #### B CUTTER [employer]UMINUM SHEET, LIP, TROPI, DIME, PTT, CDP, CMPX, IPF, MG ####[address] [place] [address] Platelet mean volume (PMV) NOT REPORTED Normal 8.1-13. 5 [facility] Comment on above: Performed By: #### B CUTTER ALUMINUM SHEET, LIP, TROPI, DIME, PTT, CDP, CMPX, IPF, MG ####[facility] [place] [address] Platelets NOT REPORTED Normal [facility] Comment on above: Performed By: #### B CUTTER ALUMINUM SHEET, LIP, TROPI, DIME, PTT, CDP, CMPX, IPF, MG ####[address] [place] [address] WBC Morphology NOT REPORTED Normal [facility] Comment on above: Performed By: #### B CUTTER [employer]UMINUM SHEET, LIP, TROPI, DIME, PTT, CDP, CMPX, IPF, MG ####[address] , [place] [address] Comp Metabolic Pr/rfx MGon 0 - Potassium molar conc 3.4 mmol/L Low 3.7-5.3 [facility] Comment on above: Performed By: #### B CUTTER ALUMINUM SHEET, LIP, TROPI, DIME, PTT, CDP, CMPX, IPF, MG ####[address] [place] [address] (cont.) Normal [facility] Comment on above: Result Comment: Aver age GFR for 60-69 years old: 85 mL/min/1.73sq mChronic Kidney Disease: <60 mL/min/1.73sq mKidney failure: <15 mL/min/1.73sq meGFR calculated using average adult body mass. Additional eGFR calculator available at:http://[email or web address] [email or web address]/multiple_crcl_2012.htm Performed By: #### B CUTTER ALUMINUM SHEET, LIP, TROPI, DIME, PTT, CDP, CMPX, IPF, MG ####[address] , [place] [address] Alanine aminotransferase (ALT) 17 U/L Normal 5-33 [facility] Comment on above: Performed By: #### B CUTTER [employer]UMINUM SHEET, LIP, TROPI, DIME, PTT, CDP, CMPX, IPF, MG ####[address] [place] [address] Albumin 4.4 g/dL Normal 3.5-5.2 [facility] Comment on above: Performed By: #### B CUTTER [employer]UMINUM SHEET, LIP, TROPI, DIME, PTT, CDP, CMPX, IPF, MG ####[address] [place] [address] Albumin/Globulin Ratio 1.2 {ratio} Normal 1.0-2.5 [facility] Comment on above: Performed By: #### B CUTTER ALUMINUM SHEET, LIP, TROPI, DIME, PTT, CDP, CMPX, IPF, MG ####[address] [place] [address] Alkaline Phos 204 U/L High 35-104 [facility] Comment on above: Performed By: #### B CUTTER [employer]UMINUM SHEET, LIP, TROPI, DIME, PTT, CDP, CMPX, IPF, MG ####[address] [place] [address] Anion gap 14 mmol/L Normal 9-17 [facility] Comment on above: Performed By: #### B CUTTER [employer] SHEET, LIP, TROPI, DIME, PTT, CDP, CMPX, IPF, MG ####[address] [place] [address] Aspartate aminotransferase (AST) 16 U/L Normal <32 [facility] Comment on above: Performed By: #### B CUTTER [employer] SHEET, LIP, TROPI, DIME, PTT, CDP, CMPX, IPF, MG ####[address] [place] [address] Bilirubin Ql (U) 0.31 mg/dL Normal 0.3-1.2 [facility] Comment on above: Performed By: #### B CUTTER ALUMINUM SHEET, LIP, TROPI, DIME, PTT, CDP, CMPX, IPF, MG ####[address] [place] [address] BUN/CRE Ratio 20 Normal 9-20 [facility] Comment on above: Performed By: #### B CUTTER [employer]UMINUM SHEET, LIP, TROPI, DIME, PTT, CDP, CMPX, IPF, MG ####[address] [place] [address] Calcium 9.8 mg/dL Normal 8.6-10.4 [facility] Comment on above: Performed By: #### B CUTTER ALUMINUM SHEET, LIP, TROPI, DIME, PTT, CDP, CMPX, IPF, MG ####[address] [place] [address] Chloride 98 mmol/L Normal 98-107 [facility] Comment on above: Performed By: #### B CUTTER [employer]UMINUM SHEET, LIP, TROPI, DIME, PTT, CDP, CMPX, IPF, MG ####[address] [place] [address] CO2 26 mmol/L Normal 20-31 [facility] Comment on above: Performed By: #### B CUTTER [employer]UMINUM SHEET, LIP, TROPI, DIME, PTT, CDP, CMPX, IPF, MG ####[address] [place] [address] Creatinine 1.03 mg/dL High 0.50-0.90 [facility] Comment on above: Performed By: #### B CUTTER ALUMINUM SHEET, LIP, TROPI, DIME, PTT, CDP, CMPX, IPF, MG ####[address] [place] [address] eGFR (non-black) mL/min/{1.73_m2} Normal >60 [facility] Comment on above: Performed By: #### B CUTTER ALUMINUM SHEET, LIP, TROPI, DIME, PTT, CDP, CMPX, IPF, MG ####[address] [place] [address] eGFR (non-black) 55 mL/min/{1.73_m2} Low >60 [facility] Comment on above: Performed By: #### B CUTTER ALUMINUM SHEET, LIP, TROPI, DIME, PTT, CDP, CMPX, IPF, MG ####[address] [place] [address] Glucose mass conc 103 mg/dL High 70-99 [facility] Comment on above: Performed By: #### B CUTTER ALUMINUM SHEET, LIP, TROPI, DIME, PTT, CDP, CMPX, IPF, MG ####[address] [place] [address] Protein 8.1 g/dL Normal 6.4-8.3 [facility] Comment on above: Performed By: #### B CUTTER ALUMINUM SHEET, LIP, TROPI, DIME, PTT, CDP, CMPX, IPF, MG ####[address] [place] [address] Sodium 138 mmol/L Normal 135-144 [facility] Comment on above: Performed By: #### B CUTTER ALUMINUM SHEET, LIP, TROPI, DIME, PTT, CDP, CMPX, IPF, MG ####[address] [place] [address] Staging: Normal [facility] Comment on above: Result Comment: Stag e 1: Some kidney damage normal GFRStage 2: Mild kidney damage GFR 60-89Stage 3: Moderate kidney damage GFR 30-59Stage 4: Severe kidney damage GFR 15-29Stage 5: Severe kidney damage GFR <15ESRD - chronic treatment by dialysis or transplantPerformed at [address] [place] [address] Performed By: #### B CUTTER ALUMINUM SHEET, LIP, TROPI, DIME, PTT, CDP, CMPX, IPF, MG ####[address] [place] [address] Urea nitrogen 21 mg/dL Normal 8-23 [facility] Comment on above: Performed By: #### B CUTTER ALUMINUM SHEET, LIP, TROPI, DIME, PTT, CDP, CMPX, IPF, MG ####[address] [place] [address] D-Dimer Teston 12-14-2017 D-Dimer Test 1.16 mg/L FEU High 0.19-0.50 [facility] Comment on above: Result Comment: Elev ated levels of D dimer can be seen in any state of coagulation activation including DVT, PE, arterial thrombosis, DIC, inflamatory disease, trauma, malignancy, sepsis, infection, hematoma, liver disease, post surgical state, , atherosclerosis, old age.When combined with a low clinical probability, a D dimer value of <0.50 mg/L is considered negative for DVT and PE (negative predictive value of 98%).Performed at [address] [place] [address] Performed By: #### B CUTTER ALUMINUM SHEET, LIP, TROPI, DIME, PTT, CDP, CMPX, IPF, MG ####[address] [place] [address] ED Provider Noteon 8 HIM IP Note OR Smoke Room Operator Normal [facility] Lipaseon 12-14-2017 Lipase 18 U/L Normal 13-60 [facility] Comment on above: Result Comment: Perf ormed at [address] [place] [address] Performed By: #### B CUTTER ALUMINUM SHEET, LIP, TROPI, DIME, PTT, CDP, CMPX, IPF, MG ####[address] [place] [address] Magnesiumon 12-14-2017 Magnesium 2.2 mg/dL Normal 1.6-2.6 [facility] Comment on above: Result Comment: Perf ormed at [address] [place] [address] Performed By: #### B CUTTER ALUMINUM SHEET, LIP, TROPI, DIME, PTT, CDP, CMPX, IPF, MG ####[address] [place] [address] PLT, Immature Fract.on 12-14 Platelet, Fluoresc. 248 k/uL Normal 138-453 [facility] Comment on above: Result Comment: Perf ormed at [address] [place] [address] Performed By: #### B CUTTER ALUMINUM SHEET, LIP, TROPI, DIME, PTT, CDP, CMPX, IPF, MG ####[address] [place] [address] PLT, Immature Fract. 13.5 % High 1.1-10.3 [facility] Comment on above: Performed By: #### B CUTTER ALUMINUM SHEET, LIP, TROPI, DIME, PTT, CDP, CMPX, IPF, MG ####[address] [place] [address] Plan of Careon 12-14-2017 HIM IP Note OR Smoke Room Operator Normal [facility] Troponinon 12-14-2017 Troponin I.cardiac mass conc Normal [facility] Comment on above: Result Comment: Refe rence Range: <0.03 Within reference range. 0.03-0.09 Possible myocardial damage.Repeat at appropriate intervals to rule out chronic elevation. >= 0.10 Indicative of myocardial damage.Patients with high levels of Biotin oral intake (i.e >5mg/day) may have falsely decreased Troponin T levels. Samples collected within 8 hours of biotin intake may require additional information for diagnosis.Performed at [address] [place], [place] [id number] [phone] Performed By: #### B CUTTER ALUMINUM SHEET, LIP, TROPI, DIME, PTT, CDP, CMPX, IPF, MG ####[address] [place] [address] Troponin T.cardiac mass conc ug/L Normal <0.03 [facility] Comment on above: Result Comment: Trop onin T results cannot be compared to Troponin-I results. Performed By: #### B CUTTER ALUMINUM SHEET, LIP, TROPI, DIME, PTT, CDP, CMPX, IPF, MG ####[address] [place] [address] XR CHEST (2 VW)on 12-14-2017 XR CHEST (2 VW) FINAL REPORTEXAM: XR CHEST (2 VW)HISTORY: pain TECHNIQUE: PA and Lateral views of the chestPRIORS: None.FINDINGS: The cardiomediastinal silhouette is within normal limits. The lung parenchyma is clear. There are no pleural abnormalities. Degenerative changes of the spine.IMPRESSION: Impression: No acute radiographic abnormality. Interpreted by:Jose RandleSigned by:Jose Randle12/14/17inal result Normal [facility] Vital Signs Date Time Vital Sign Value Performing Clinician Liliana hubbard 06-20-2023 13:59-0500 Blood Pressure Location [place] [facility] 06-20-2023 13:59-0500 Diastolic blood pressure 86 mm[Hg] [place] HOPEL [facility] 06-20-2023 13:59-0500 Heart rate 80 /min [place] HOPEL [facility] 06-20-2023 13:59-0500 Respiratory rate 16 /min [place] HOPEL [facility] 06-20-2023 13:59-0500 Systolic blood pressure 130 mm[Hg] [place] NILL [facility] 02-25-2020 16:37-0400 Body Temperature 99.1 [degF] [facility] 02-25-2020 16:37-0400 BP Diastolic 61 mm[Hg] [facility] 02-25-2020 16:37-0400 BP Systolic 121 mm[Hg] [facility] 02-25-2020 16:37-0400 Pulse (Heart Rate) 78 /min [facility] 02-25-2020 16:37-0400 Pulse Oximetry 98 % [facility] 02-25-2020 16:37-0400 Respiratory Rate 16 /min [facility] 02-25-2020 04:21-0400 BMI (Body Mass Index) 46.31 kg/m2 [facility] 02-25-2020 04:21-0400 Body weight 130.14 kg [facility] 02-23-2020 09:33-0400 Height 167.6 cm [facility] 06-30-2019 11:20-0500 Body Temperature 97 [degF] [facility] 06-30-2019 11:20-0500 BP Diastolic 79 mm[Hg] [facility] 06-30-2019 11:20-0500 BP Systolic 135 mm[Hg] [facility] 06-30-2019 11:20-0500 Pulse (Heart Rate) 84 /min [facility] 06-30-2019 11:20-0500 Pulse Oximetry 97 % [facility] 06-30-2019 11:20-0500 Respiratory Rate 20 /min [facility] Encounters Encounter Date Encounter Type Care Provider Facility Start: 06-20-2023 End: 06-21-2023 ambulatory [place] GREENE Facility:SHEILA Carpio Start: 06-20-2023 End: 06-20-2023 Patient encounter procedure [place] GRE[facility] General [facility] Nill/Said Shirin Start: 05-17-2023 ambulatory [place] GREENE Facility:Andra Carpio Start: 11-06-2022 End: 11-06-2022 [facility] Start: 09-29-2022 End: 09-30-[address] PATRICK MANCILLA Facility:[facility] Start: 07-19-2022 End: 07-20-2022 ambulatory KIRILL HOPKINS Facility:[facility] Start: 06-16-2022 End: 06-16-2022 ambulatory [facility] Start: 04-05-2022 End: 04-06-[address] PATRICK MANCILLA Facility:[facility] Start: 03-08-2022 End: 03-08-[address] LINH MCGILL Facility:[facility] Start: 01-10-2022 End: 01-11-[address] PATRICK MANCILLA Facility:[facility] Start: 11-08-2021 End: 11-09-[address] PATRICK MANCILLA Facility:[facility] Start: 03-03-2020 End: 03-03-2020 Patient encounter procedure DEREK AGUILAR Facility:[facility] Start: 02-23-2020 End: 02-25-2020 Emergency department patient visit ChepeJohn Gomez Work Phone: [facility] Med Surg Comment on above: Chest pain, rule out acute myocardial infarction Start: 06-30-2019 End: 06-30-2019 Emergency department patient visit Randall Hurley Work Phone: [facility] Emergency Medicine Start: 02-25-2019 End: 02-25-2019 Letter encounter Hilton Castanon Work Phone: [facility] Start: 02-19-2019 End: 02-19-2019 Letter encounter Sheldon Chua Work Phone: [facility] Central Scheduling Start: 12-15-2017 End: 12-18-2017 Evaluation and management of inpatient [facility] Start: 12-14-2017 End: 12-15-2017 Emergency department patient visit [facility] Procedures Date Procedure Procedure Detail Performing Clinician Start: 02-25-2020 Cardiovascular stress test using pharmacologic stress agent Christy Ritter Work Phone: Start: 02-25-2020 Assay of magnesium Sheldon Chua Work Phone: Start: 02-25-2020 Complete blood count with white cell differential, automated Sheldon Chua Work Phone: Start: 02-25-2020 Renal function panel Sheldon Chua Work Phone: Start: 02-24-2020 Assay of magnesium Sheldon Chua Work Phone: Start: 02-24-2020 Complete blood count with white cell differential, automated Sheldon Chua Work Phone: Start: 02-24-2020 Renal function panel Sheldon Chua Work Phone: Start: 02-24-2020 Assay of troponin quantitative Sheldon Chua Work Phone: Start: 02-23-2020 Assay of troponin quantitative Sheldon Chua Work Phone: Start: 02-23-2020 Glucose blood reagent strip Sheldon jean Work Phone: Start: 02-23-2020 Assay of troponin quantitative Sheldon Chua Work Phone: Start: 02-23-2020 Transthoracic echocardiography Sheldon Chua Work Phone: Start: 02-23-2020 Cultyp nuc acid amp prb cult/isolate ea orgnism Sheldon Chua Work Phone: Start: 02-23-2020 Plain chest X-ray Kelley S Mike Work Phone: Start: 02-23-2020 Assay of troponin quantitative Kelley S Y oung Work Phone: Start: 02-23-2020 Complete blood count with white cell differential, automated Kelley S Mike Work Phone: Start: 02-23-2020 Electrolyte panel Kelley S [employer] Work Phone: Start: 02-23-2020 Lipid panel Sheldon Chua Work Phone: Start: 02-23-2020 Prothrombin time Kelley S Young Work Phone: Start: 02-23-2020 Standard ECG Kelley S [employer] Work Phone: Start: 02-23-2020 Lipid 1996 panel - Serum or Plasma Lisandro Gomez Start: 12-18-2017 CPAP ELADIO XAVIER Start: 12-18-2017 DISCHARGE PATIENT ELADIO XAVIER Start: 12-18-2017 CPAP ELADIO XAVIER Start: 12-18-2017 INITIATE OXYGEN THERAPY PROTOCOL ELADIO ALONSO Start: 12-18-2017 POC GLUCOSE FINGERSTICK ELADIO XAVIER Start: 12-18-2017 TELEMETRY MONITORING ELADIO MORENITA Start: 12-18-2017 CPAP ELADIO MORENITA Start: 12-18-2017 INTAKE AND OUTPUT ELADIO MORENITA Start: 12-18-2017 CPAP ELADIO MORENITA Start: 12-17-2017 POC GLUCOSE FINGERSTICK ELADIO MORENITA Start: 12-17-2017 CPAP ELADIO MORENITA Start: 12-17-2017 DISCHARGE PATIENT ELADIO MORENITA Start: 12-17-2017 POC GLUCOSE FINGERSTICK ELADIO MORENITA Start: 12-17-2017 CPAP ELADIO MORENITA Start: 12-17-2017 DIET CARDIAC ELADIO MORENITA Start: 12-17-2017 CPAP ELADIO MORENITA Start: 12-17-2017 POC GLUCOSE FINGERSTICK ELADIO MORENITA Start: 12-17-2017 IP CONSULT TO IV TEAM ELADIO MORENITA Start: 12-17-2017 CPAP ELADIO MORENITA Start: 12-17-2017 INITIATE OXYGEN THERAPY PROTOCOL ELADIO ALONSO Start: 12-17-2017 Dup-scan xtr veins complete bilateral study ELADIO MORENITA Start: 12-17-2017 ECHOCARDIOGRAM 2D W SECTOR W DOPPLER ELADIO MORENITA Start: 12-17-2017 POC GLUCOSE FINGERSTICK ELADIO MORENITA Start: 12-17-2017 CPAP ELADIO MORENITA Start: 12-17-2017 INTAKE AND OUTPUT ELADIO MORENITA Start: 12-17-2017 CPAP ELADIO MORENITA Start: 12-16-2017 POC GLUCOSE FINGERSTICK ELADIO MORENITA Start: 12-16-2017 CPAP ELADIO MORENITA Start: 12-16-2017 POC GLUCOSE FINGERSTICK ELADIO MORENITA Start: 12-16-2017 CPAP ELADIO MORENITA Start: 12-16-2017 IP CONSULT TO IV TEAM ELADIO MORENITA Start: 12-16-2017 CPAP ELADIO MORENITA Start: 12-16-2017 POC GLUCOSE FINGERSTICK ELADIO MORENITA Start: 12-16-2017 Cardiovascular function eval w/tilt table w/mntr ELADIO MORENITA Start: 12-16-2017 CPAP ELADIO MORENITA Start: 12-16-2017 INITIATE OXYGEN THERAPY PROTOCOL ELADIO ALONSO Start: 12-16-2017 POC GLUCOSE FINGERSTICK ELADIO MORENITA Start: 12-16-2017 Assay of magnesium ELADIO MORENITA Start: 12-16-2017 Blood count complete automated ELADIO KATHIE N Start: 12-16-2017 COMPREHENSIVE METABOLIC PANEL W/ REFLEX TO MG FOR LOW K ELADIO MORENITA Start: 12-16-2017 IMMATURE PLATELET FRACTION ELADIO MORENITA Start: 12-16-2017 Lipid panel ELADIO MORENITA Start: 12-16-2017 TSH WITH REFLEX ELADIO MORENITA Start: 12-16-2017 CPAP ELADIO MORENITA Start: 12-16-2017 INTAKE AND OUTPUT ELADIO MORENITA Start: 12-16-2017 CPAP ELADIO MORENITA Start: 12-15-2017 POC GLUCOSE FINGERSTICK ELADIO MORENITA Start: 12-15-2017 CPAP ELADIO MORENITA Start: 12-15-2017 POC GLUCOSE FINGERSTICK ELADIO MORENITA Start: 12-15-2017 CPAP ELADIO MORENITA Start: 12-15-2017 TROP/MYOGLOBIN ELADIO MORENITA Start: 12-15-2017 CPAP ELADIO MORENITA Start: 12-15-2017 POC GLUCOSE FINGERSTICK ELADIO MORENITA Start: 12-15-2017 GRADUAL COMPRESSION STOCKINGS (DEAN) TAYA N MORENITA Start: 12-15-2017 Blood count complete automated ELADIO KATHIE N Start: 12-15-2017 IMMATURE PLATELET FRACTION ELADIO MORENITA Start: 12-15-2017 PREVIOUS SPECIMEN ELADIO MORENITA Start: 12-15-2017 TROP/MYOGLOBIN ELADIO MORENITA Start: 12-15-2017 EKG 12-LEAD ELADIO MORENITA Start: 12-15-2017 Assay of magnesium ELADIO MORENITA Start: 12-15-2017 COMP METABOLIC W/ BILI PROFILE ELADIO KATHIE N Start: 12-15-2017 POC GLUCOSE FINGERSTICK ELADIO MORENITA Start: 12-15-2017 IP CONSULT TO CARDIOLOGY ELADIO MORENITA Start: 12-15-2017 CPAP ELADIO MORENITA Start: 12-15-2017 INITIATE OXYGEN THERAPY PROTOCOL ELADIO D GAVIN Start: 12-15-2017 CPAP ELADIO MORENITA Start: 12-15-[address] PL[address] INTERMITTENT PNEUMATIC COMPRESSION DEVICE ELADIO MORENITA Start: 12-15-2017 DAILY WEIGHTS ELADIO MORENITA Start: 12-15-2017 FULL CODE ELADIO MORENITA Start: 12-15-2017 INITIATE OXYGEN THERAPY PROTOCOL ELADIO D GAVIN Start: 12-15-2017 INTAKE AND OUTPUT ELADIO MORENITA Start: 12-15-2017 NOTIFY PHYSICIAN (SPECIFY) ELADIO MORENITA Start: 12-15-2017 PULSE OXIMETRY SPOT CHECK ELADIO MORENITA Start: 12-15-2017 TELEMETRY MONITORING ELADIO MORENITA Start: 12-15-2017 VITAL SIGNS ELADIO MORENITA Start: 12-15-2017 TROPONIN ELADIO MORENITA Start: 12-15-2017 Ct angiography chest w/contrast/noncontrast ELADIO MORENITA Start: 12-14-2017 PATIENT STATUS (DIRECT) ELADIO MORENITA Start: 12-14-2017 CONTRA ASPIRIN ARRIVAL ELADIO MORENITA Start: 12-14-2017 EKG 12-LEAD ELADIO MORENITA Start: 12-14-2017 Radiologic exam chest 2 views ELADIO MORENITA Start: 12-14-2017 Assay of lipase ELADIO MORENITA Start: 12-14-2017 Assay of magnesium ELADIO MORENITA Start: 12-14-2017 Blood count complete auto&auto difrntl wbc ELADIO MORENITA Start: 12-14-2017 BRAIN NATRIURETIC PEPTIDE ELADIO MORENITA Start: 12-14-2017 COMPREHENSIVE METABOLIC PANEL W/ REFLEX TO MG FOR LOW K ELADIO MORENITA Start: 12-14-2017 D-DIMER, QUANTITATIVE ELADIO MORENITA Start: 12-14-2017 IMMATURE PLATELET FRACTION ELADIO MORENITA Start: 12-14-2017 Thromboplastin time partial plasma/whole blood ELADIO MORENITA Start: 12-14-2017 TROPONIN ELADIO MORENITA Start: 12-14-2017 EKG 12-LEAD ELADIO MORENITA Start: 05-22-2011 Colonoscopy [place] N[place] Start: 05-15-2011 Esophagogastroduodenoscopy [place] N[place] Start: 05-15-2011 Sigmoidoscopy [place] N[place] Abdominal hysterectomy Jacek rodri HOPEL Arthroscopy of knee [place] N[place] Biopsy of breast [place] NIL L Cholecystectomy [facility] Repair of musculoten dinous cuff of shoulder [place] N[place] Plan of Treatment Date Care Activity Detail Author Start: 02-22-2025 Fasting lipid profile LIPID SCREENIN G [employer] Start: 02-23-2021 Potassium [Moles/Vol] POTASSIUM A [employer] Start: 03-16-2020 Influenza vaccination INFLUENZA VACC INE (#1) [facility] Start: 03-03-2020 End: 02-24-2021 RENAL FUNCTION PANEL RENAL FUNCTION PANEL Lab Routine EDIE (acute kidney injury) Expected: 03/03/2020 (Approximate), Expires: 02/24/2021 [facility] Comment on above: Expected: 03/03/2020 (Approximate), Expires: 02/24/2021 Start: 02-10-2020 Potassium [Moles/Vol] POTASSIUM A [facility] Start: 03-16-2019 Influenza vaccination INFLUENZA VACC INE (#1) [facility] Start: 12-08-2007 Colonoscopy [facility] Start: 12-08-2007 Zoster vaccine hzv l paz for subcutaneous use ZOSTER (SHINGLES) VACCINE (1 of 2) [facility] Start: 1997 Fasting lipid profile LIPID SCREENIN G [facility] Start: 1997 Screening mammography MAMMOGRA M SCREENING DISCUSSION [facility] Start: 1978 Screening for malign ant neoplasm of cervix [facility] Start: 1976 Third diphtheria, te tanus and acellular pertussis (DTaP) vaccination TDAP (ADULT) [facility] Start: 12-08-1975 Tetanus vaccination [facility] Start: 1970 HIV screening HIV SCREENING DISCUSSION [facility] Start: 1957 Hepatitis C antibody , confirmatory test HEPATITIS C VIRUS SCREENING [facility] Start: 1957 TSH Qn TSH [facility] Standard ECG ECG ECG STAT 04/2020 6:34 AM EDT [facility] Immunizations Immunization Date Immunization Notes Care Provider Margoth felder 05-15-2019 influenza virus vaccine, whole virus [facility] 05-15-2019 influenza virus vaccine, unspecified formulation [facility] NEGATED: Highlighted row has not occurred!06-20-2023 influenza virus vaccine, unspecified formulation [place] GRE[facility] [place] Payers Date Payer Category Payer Unknown [id number] 2019 Private Health Insurance ELSA MUKHERJEE [id number] 2019-Present [id number] 2019 Unknown GENERIC PAYOR LILLI CAZARES PLAN xxxxxxxxxx 2019-Present xxxxxxxxxx [id number] 1959 Medicaid [id number] 1957 Unknown [id number] 1957 Unknown [id number] 1957 Unknown [id number] 1957 Unknown [id number] [id number] 1957 Unknown [id number] 593 1957 Unknown [id number] 593 1957 Unknown [id number] 593 1957 Unknown [id number] 593 1957 Unknown [id number] Private Health Insurance [id number] Unknown [id number] Social History Date Type Detail Facility Start: 02-09-2019 End: 06-20-2023 Tobacco smoking status NHIS Never smoker [facility] Start: 02-09-2019 History SDOH Alcohol Frequency 1 [employer] Sex Assigned At Not on file [employer] Start: 06-30-2019 End: 02-25-2020 Alcohol intake Lifetime non-drinker (finding) [employer] Start: 02-25-2020 Tobacco use and exposure Never used [employer] System Exposure to SARS-CoV -2 (event) Not sure [facility] Start: 02-09-2019 Alcohol intake Never [facility] Tobacco smoking status Never [facility] Functional Status Date Assessment Result Facility 06-20-2023 Functional Status N/A [facility] jeovanny Carpio Clinical Note 06-20-2023 Note Date & Type Note Facility 06-20-2023 Note Chief Complaint consultation for colonoscopy HPI Staff 67 year old female presents on consultation from Dr. Mancilla for screening colonoscopy. Denies abdominal or rectal pain. No rectal bleeding. Denies nausea or vomiting. Reports one year history of diarrhea. Reports stools are water consistency. She experiences diarrhea 3-4 times per week. Imodium minimally effective. PCP prescribed Lomotil which has allowed her to be able to live . States she will experience lower abdominal cramping prior to start of diarrhea. Reports fecal urgency. No unexplained weight loss. Last colonoscopy completed 05/2011 with diverticulosis and internal hemorrhoids. No known family history of colon cancer. History of Present Illness 67 yo female with h/o asthma/COPD, htn, DMII, hypothyroidism, CKD, stage 3, DAVID, GERD, depression/CAROL, lumbosacral spondylosis; referred for colonoscopy; patient reports frequent lood stools, no food triggers, no blood or mucous; multiple episodes, associated with crampy liower abd pain, no N/V; no wt loss; no fevers; no new medications; worsened over the last year; on Celebrex daily, no asa, no SBE prophylaxis; abd operations significant for cholecystectomy and hysterectomy; no fmhx of GI malignancy or IBD; no tobacco use. Review of Systems PHQ Score Initial Depression Screen Score: 0 SCORE ROS - Provider Constitutional: no fever, no sweats, no weight loss. Eyes: no glasses, no blurred vision, no visual loss. ENMT: no dentures, no hoarseness, no swallowing difficulties, no hearing loss, no ear infection(s), no nose bleeds. Cardiovascular: normal blood pressure, no chest pain, regular heartbeat, no heart murmur. Respiratory: no shortness of breath, no cough, no asthma, no wheezing. Gastrointestinal: no nausea, no vomiting, yes diarrhea, no constipation, no blood in stool, no change in bowel habits, no abdominal pain, no hepatitis. Genitourinary: no kidney stones, no urine infection, no dysuria. Musculoskeletal: no pain, no weakness. Skin: no changing moles, no rash, no skin lumps. Neurologic: no seizures, no epilepsy, no headache. Psychiatric: no emotional or psychiatric problem. Heme/Lymph: no bleeding problems, no anemia, no blood clots, no transfusions. Allergy/Immunologic: no swollen lymph nodes/glands, no IV drug abuse. Other: Additional ROS info: Except as noted in the above Review of Systems and in the History of Present Illness, all other systems have been reviewed and are negative or noncontributory. Physical Exam Vitals & Measurements HR: 80(Peripheral) RR: 16 BP: 130/86 HT: 67 in HT: 170 cm WT: 134.9 kg WT: 296.78 lb BMI: 46.68 HEENT: normal conjunctiva, sclera clear, no scleral icterus, EOM intact, PERRLA, oral mucosa moist without lesions. Neck: trachea midline, no mass, symmetric, no thyromegaly or nodules, no adenopathy Respiratory: lungs CTA, respirations non labored. Cardiovascular: regular rate and rhythm, no murmur, no pedal edema or varicosities. Gastrointestinal: obese, soft, non distended, no tenderness, no masses, no palpable hernias, diastasis recti no, no hepatosplenomegaly; normal bs Lymphatic: no cervical adenopathy, no supraclavicular adenopathy. Musculoskeletal: normal gait, digits and nails without infection, nodes, cyanosis, clubbing. Skin: no rashes, no lesions, no ulcers, no subcutaneous nodules, induration. Psychiatric/Neuro: oriented to time, place, person, judgement normal, affect appropriate for age, insight intact, no focal deficits. Tests: review of old records completed , Discussed surgical options, risks, and possible complications with patient. Assessment/Plan 1. Change in bowel habits (R19.4: Change in bowel habit) plan colonoscopy under anesthesia for further evaluation, informed consent obtained. 2. BMI 45.0-49.9, adult (Z68.42: Body mass index [BMI] 45.0-49.9, adult) recommend diet and exercise. Follow-up No qualifying data available Problem List/Past Medical History Ongoing Asthma BMI 45.0-49.9, adult Change in bowel habits Chronic diastolic heart failure Chronic obstructive pulmonary disease Depression Diabetes Diverticulosis Dyslipidemia CAROL (generalized anxiety disorder) GERD (gastroesophageal reflux disease) HTN (hypertension) Hypothyroidism Insomnia Morbid obesity DAVID (obstructive sleep apnea) Pulmonary nodule Screening for colorectal cancer Seasonal allergic rhinitis Spondylosis of lumbosacral spine with radiculopathy Stage 3 chronic kidney disease Historical No qualifying data Procedure/Surgical History Colonoscopy (05/22/2011), EGD - esophagogastroduodenoscopy (05/15/2011), Sigmoidoscopy (05/15/2011), Abdominal hysterectomy, Arthroscopy of knee, Biopsy of breast, Cholecystectomy, Rotator cuff repair. Medications albuterol 0.083% Inh Sheri 3 mL, 2.5 mg= 3 mL, NEB, QID, PRN aspirin 81 mg Oral EC Tab, 81 mg= 1 tab(s), Oral, Daily CeleBREX 200 mg Cap, 200 mg= 1 cap(s), Oral, BID cetirizine 10 mg Ta (more content not included)... [facility] Comment on above: Result Comment: Elec tronically Signed By: JC ARAMBULA, [place] Govea\Date and Time Signed: 06/20/23 14:53 EST Progress note 11-06-2022 Note Date & Type Note Facility 11-06-2022 Note Cardiology Clinic No te Subjective Alyce Torres is a 66 y.o. year old female patient with medical history of hypertension, dyslipidemia, hypothyroidism, and heart failure preserved ejection fraction. She is seen today in follow-up. She reports she has overall been doing fairly well. She was started on Trulicity and has lost about 20 pounds within the last month or so. She ran out of her spironolactone hence she has not taken that for several months. Her chest discomfort has resolved since her last office visit, dyspnea on exertion is improving with weight loss. Patient Active Problem List Diagnosis EDIE (acute kidney injury) (CMS/HCC) Chest pain Chronic diastolic heart failure (CMS/HCC) Congestive heart failure (CMS/HCC) Depressive disorder Dyslipidemia Edema of lower extremity Benign hypertension Gastroesophageal reflux disease Hyperlipidemia Hypoalbuminemia due to protein-calorie malnutrition (CMS/HCC) Hypokalemia Hypothyroidism Hypovolemia Insomnia Low HDL (under 40) Near syncope Morbid (severe) obesity due to excess calories (CMS/HCC) Obstructive sleep apnea syndrome Positive D dimer Type 2 diabetes mellitus without complication (CMS/HCC) Family History Problem Relation Name Age of Onset Coronary artery disease Mother Coronary artery disease Father Social History Tobacco Use Smoking status: Former Types: Cigarettes Quit date: 04/12/2018 Years since quittin.5 Smokeless tobacco: Never Substance Use Topics Alcohol use: Yes Comment: occassionally SHARMILA Mead is seen in follow up. She was seen as a new patient on 01/22/2018. Visit of 01/22/2018: She used to see Dr Bloom in the past. Cardiac cath at that time due to chest discomfort and an abnormal stress test showed non obstructive coronaries. She has been having episodes of near syncope requiring her to sit down and stop activity. This is associated with a chest pain symptoms that radiates to the Jaw. Symptoms resolve on resting. Chest pain symptoms are moderate to severe (8/10). These have been happening about once or twice a week. Symptoms started in November 2017. Recent evaluation included ECG, Tilt table, and echocardiogram testing and those were non revealing. Cardiac cath 03/09/2011: 1. Nonobstructive epicardial coronary arteries. 2. Reduced CALIN flow suggestive of diffuse endothelial dysfunction and early atherosclerotic coronary disease. 3. Low normal global left ventricular systolic function. 4. Heavy trabeculation evident in the left ventricular myocardium. 5. Normal left ventricular and diastolic pressure. Echocardiogram 03/09/2018: Global left ventricular systolic function is normal. No significant valvular disease. Update 03/07/2018: She is seen in follow up. She says that about 10 days ago, she had chest pain and took a nitro from her sister's meds and the pain resolved. No syncope. She continues to feel palpitations. She is very symptomatic. She says she cannot clean her house. Stress test 01/29/2018: no ischemia. small apical infarct Overall normal LV systolic function. EF 60%. Event monitor 01/22/2018: sinus rhythm with occasional sinus tachycardia, infrequent PACs and PVCs. No significant arrhythmia noted. Update 04/12/2018: She is seen in follow up. She underwent cardiac cath to investigate symptoms and abnormal stress test. Cath 03/13/2018: 1. Absence of angiographic atherosclerotic disease. 2. Severe sluggish flow throughout the coronary arterial tree most noted in the LAD and right coronary artery. I increased imdur to 60 mg daily and she feels much better with no chest pain. No lightheadedness and no dizziness. No syncope. Labs 04/04/2018: Normal CBC. BUN 26, Cr 1.21, Normal electrolytes. Mildly low TSH, normal fT3 and fT4. HbA1C 5.4% Visit of 11/24/2019: She is seen in follow up via telemedicine. She reports having had 4 times episodes of palpitations, lasting about 1 hour, happening at rest (watching TV or sleeping). They subside spontaneously. She has associated chest tightness but no pain. Outside of that she has been doing well. She does have dyspnea on exertion (carrying groceries, carrying grand kids). She rests and the dyspnea would resolved. She has a smart watch and has been recording heart rates up to 170. Her blood pressure has been around 130/60. She stopped taking aspirin due to bruising. She reports that her current symptoms are similar to when she had a event monitor placed in 2018 - at that time she had PVCs and PACs. Update 01/29/2020: She is seen in follow up via telemedicine. At last visit I increased metoprolol dosing. Her blood pressure has been pretty good. She is also now taking aspirin. No palpitations like before. she gets chest pressure and dyspnea when taking a shower or does a short walk. She has to rest to catch her breath. Blood testing 12/02/2019: normal TSH, CBC, magnesium. BUN (more content not included)... [facility] Progress note 06-16-2022 Note Date & Type Note Facility 06-16-2022 Note [place] [facility] Subjective Alyce Torres is a 66 y.o. year old female patient being seen for Chest Pain and Hypertension Patient was seen in [facility] ED in Feb 2022 for chest pain. Says she's had a few episodes since then, for which she did not seek medical attention. She took a few baby aspirins. C/o fatigue. She has been taking lasix BID. Patient Active Problem List Diagnosis EDIE (acute kidney injury) (CMS/HCC) Chest pain Chronic diastolic heart failure (CMS/HCC) Congestive heart failure (CMS/HCC) Depressive disorder Dyslipidemia Edema of lower extremity Benign hypertension Gastroesophageal reflux disease Hyperlipidemia Hypoalbuminemia due to protein-calorie malnutrition (CMS/HCC) Hypokalemia Hypothyroidism Hypovolemia Insomnia Low HDL (under 40) Near syncope Morbid (severe) obesity due to excess calories (CMS/HCC) Obstructive sleep apnea syndrome Positive D dimer Type 2 diabetes mellitus without complication (CMS/HCC) Family History Problem Relation Name Age of Onset Coronary artery disease Mother Coronary artery disease Father Social History Tobacco Use Smoking status: Former Types: Cigarettes Quit date: 04/12/2018 Years since quittin.1 Smokeless tobacco: Never Substance Use Topics Alcohol use: Yes Comment: occassionally Alyce is seen in follow up. She was seen as a new patient on 01/22/2018. Visit of 01/22/2018: She used to see Dr Bloom in the past. Cardiac cath at that time due to chest discomfort and an abnormal stress test showed non obstructive coronaries. She has been having episodes of near syncope requiring her to sit down and stop activity. This is associated with a chest pain symptoms that radiates to the Jaw. Symptoms resolve on resting. Chest pain symptoms are moderate to severe (8/10). These have been happening about once or twice a week. Symptoms started in November 2017. Recent evaluation included ECG, Tilt table, and echocardiogram testing and those were non revealing. Cardiac cath 03/09/2011: 1. Nonobstructive epicardial coronary arteries. 2. Reduced CALIN flow suggestive of diffuse endothelial dysfunction and early atherosclerotic coronary disease. 3. Low normal global left ventricular systolic function. 4. Heavy trabeculation evident in the left ventricular myocardium. 5. Normal left ventricular and diastolic pressure. Echocardiogram 03/09/2018: Global left ventricular systolic function is normal. No significant valvular disease. Update 03/07/2018: She is seen in follow up. She says that about 10 days ago, she had chest pain and took a nitro from her sister's meds and the pain resolved. No syncope. She continues to feel palpitations. She is very symptomatic. She says she cannot clean her house. Stress test 01/29/2018: no ischemia. small apical infarct Overall normal LV systolic function. EF 60%. Event monitor 01/22/2018: sinus rhythm with occasional sinus tachycardia, infrequent PACs and PVCs. No significant arrhythmia noted. Update 04/12/2018: She is seen in follow up. She underwent cardiac cath to investigate symptoms and abnormal stress test. Cath 03/13/2018: 1. Absence of angiographic atherosclerotic disease. 2. Severe sluggish flow throughout the coronary arterial tree most noted in the LAD and right coronary artery. I increased imdur to 60 mg daily and she feels much better with no chest pain. No lightheadedness and no dizziness. No syncope. Labs 04/04/2018: Normal CBC. BUN 26, Cr 1.21, Normal electrolytes. Mildly low TSH, normal fT3 and fT4. HbA1C 5.4% Visit of 11/24/2019: She is seen in follow up via telemedicine. She reports having had 4 times episodes of palpitations, lasting about 1 hour, happening at rest (watching TV or sleeping). They subside spontaneously. She has associated chest tightness but no pain. Outside of that she has been doing well. She does have dyspnea on exertion (carrying groceries, carrying grand kids). She rests and the dyspnea would resolved. She has a smart watch and has been recording heart rates up to 170. Her blood pressure has been around 130/60. She stopped taking aspirin due to bruising. She reports that her current symptoms are similar to when she had a event monitor placed in 2018 - at that time she had PVCs and PACs. Update 01/29/2020: She is seen in follow up via telemedicine. At last visit I increased metoprolol dosing. Her blood pressure has been pretty good. She is also now taking aspirin. No palpitations like before. she gets chest pressure and dyspnea when taking a shower or does a short walk. She has to rest to catch her breath. Blood testing 12/02/2019: normal TSH, CBC, magnesium. BUN 27, Cr 1.15. Update 03/24/2020: She is seen in follow up via medicine. In February of 2020 she was investigate for chest pain. Stress echo 02/25/2020 and echo 02/23/2020 were normal. She was started on colchicin (more content not included)... [facility] Evaluation + Plan note Note Date & Type Note Facility Evaluation + Plan note No data available for this section [facility] Discharge instructions Note Date & Type Note Facility Hospital Discharge instructions No data available for this section [facility] note Note Date & Type Note Facility Progress note No data available for this section [facility] Summary Purpose Family History No Family History Records FoundNo Family History Records FoundNo Family History Records FoundNo Family History Records FoundNo Family History Records FoundNo Family History Records Found No data available for this section No Family History Records Found Advance Directives No Advanced Directives Records FoundLatest Code Status on File Code Status Date Activated Date Inactivated Comments Full Code 02/10/2019 12:15 AM Latest Code Status on File Code Status Date Activated Date Inactivated Comments Full Code 02/10/2019 12:15 AM Latest Code Status on File Code Status Date Activated Date Inactivated Comments Full Code 02/23/2020 8:08 AM Full Code 02/10/2019 12:15 AM 02/23/2020 8:08 AM Reason for Referral Status Reason Specialty Diagnoses / Procedures Referred By Contact Referred To Contact Schedule Outgoing - Transfer of Care Diagnoses Nausea vomiting and diarrhea Randall Hurley, [address] [place] [address] Patrick Mancilla MD [address] [place] [address] Status Reason Specialty Diagnoses / Procedures Re ferred By Contact Referred To Contact New Request Procedures INPATIENT ADMISSION NOTIFICATION Bakari Dumont MD [address] [place] [address] Status Reason Specialty Diagnoses / Procedures Referred By Contact Referred To Contact New Request Procedures ECG Kelley Mckeon MD [address] [place] [address] Discharge Instructions * Instructions* Randall Hurley, - 06/30/2019 Thank you for allowing us to be involved in your care today. Please follow up as discussed during your stay. This information is included in your discharge paperwork. Appropriate follow up is essential in your continued care after today's visit. If you had any diagnostic studies (Labs, X-rays, CT-scan , Ultrasound or Cultures) have your Primary Care Physician (PCP) review them with you since there may be results that require further follow up or investigation. Return to the Emergency Department at any point with worsening conditions or concerns. The physician and staff of the Emergency Department would like to thank you for choosing our facility for your health care needs. Our goal is to provide exceptional service. You may be receiving a survey in the mail following your visit. Because your feedback is very important to us, we hope you will take the time to complete and return the survey. If for any reason, you feel that you cannot rateus Very Good or 5 for the service you received today, please let us know prior to your discharge. Please follow up with your family doctor or one of your choosing. You may find a provider through the [facility]erral Service by calling [phone] or by visiting [email or web address] Thank You for choosing the [facility] Emergency Department! * Attachments The following attachments cannot be sent through Care Everywhere. * Gastroenteritis ([place]) documented in this encounter* Discharge Instr - Activity* Johanna Jesus RN - 02/25/2020 10:30 AM EDT Resume pre-hospital activity. * Discharge Instr - Diet* Johanna Jesus RN - 02/25/2020 10:30 AM EDT Resume pre-hospital diet. * Discharge Instr - Notify* Johanna Jesus RN - 02/25/2020 10:31 AM EDT [id number]: You passed out (lost consciousness). You have severe difficulty breathing. You have symptoms of a heart attack. These may include: ? Chest pain or pressure, or a strange feeling in your chest. ? Sweating. ? Shortness of breath. ? Nausea or vomiting. ? Pain, pressure, or a strange feeling in your back, neck, jaw, or upper belly or in one or both shoulders or arms. ? Lightheadedness or sudden weakness. ? A fast or irregular heartbeat. After you call 911, the partition assembly machine operator may tell you to chew 1 adult-strength or 2 to 4 low-dose aspirin. Wait for an ambulance. Do not try to drive yourself. Call your doctor today if: You have any trouble breathing. Your chest pain gets worse. You are dizzy or lightheaded, or you feel like you may faint. You are not getting better as expected. You are having new or different chest pain. * Attachments The following attachments cannot be sent through Care Everywhere. * Chest Pain ([place]) * metoprolol (oral/injection) ([place]) documented in this encounter Assessments Diagnosis Nausea vomiting and diarrhea- Primary Nausea with vomiting Diagnosis Chest pain, unspecified type EDIE (acute kidney injury) Acute kidney failure, unspecified Hyperlipidemia Other and unspecified hyperlipidemia Benign hypertension Essential hypertension, benign Obesity: body mass index of 40.0-49.9 History of Present Illness * Lorri Salgado LSW - 02/25/2020 9:48 AM EDT SW consulted for discharge planning needs. Chart review completed. Patient reports she lives in an apartment and has 5 steps to enter the home. Alyce reports she lives alone and completes all ADL's independently, including driving. She currently works three days a week. Patient does have prescription coverage and has medications filled at [facility] in [place]. She denies concerns with getting her medications. Patient indicates she does not have medical equipment at home. Patient denies being in a SNF, and having HHC in the home. It does not appear there are any social contact worker needs at this time, however SW will continue to follow for discharge needs. DARLENE Fernandez 02/25/2020 9:49 am 02/25/20 0946 Information Source Information Source patient Information Source Name Alyce Torres Information Source Number [phone] Contact Information Supervisor Data Processing Name Kanchan Espinoza Social Work Contact Name RILEY Sanchez LSW [employer] Living Environment Lives With alone Living Arrangements apartment Provides Primary Care For no one Primary Care Provided By self Support System Immediate family Able to Return to Prior Arrangements yes Employment/Financial Employed? No Employment/Financial Concerns no Source Of Income salary/wages Financial Concerns none Cognitive/Perceptual/Developmental Current Mental Status/Cognitive Functioning no deficits noted Developmental Stage Stage 7 (35-65 years/Middle Adulthood) Generativity vs. Stagnation Emotional/Psychological Affect no deficits noted Mood congruent to situation Verbal Skills no deficits noted Current Interpersonal Conduct/Behavior appropriate to situation Thought Process Alterations no deficits noted Referral Information Referral Source physician * Bakari Dumont MD - 02/24/2020 12:28 PM EDT DAILY PROGRESS NOTE Admit Date: 02/23/2020 Date of Evaluation: 02/24/202012:30 PM [facility] LOS: 0 days SUBJECTIVE: Patient seen and examined. Chart, medications, labs all reviewed. Care discussed with medical staff. Overnight there were no events reported. This a.m. patient has no complaints. She continues to complain of some mild dyspnea with exertion around the halls. She denies any CP. No further radiation or tingling to her neck or jaw or arm. Cardiac ROS is otherwise negative. ID ROS is negative. Case discussed with cardiology. Cardiolite stress test is being recommended. Given her continued symptomatology with ambulation we will proceed with Cardiolite stress test in a.m. Vital Signs: Blood pressure 126/75, pulse 71, temperature 97.4 F (36.3 C), temperature source Temporal, resp. rate 16, height 1.676 m (5' 6 ), weight 131.2 kg (289 lb 3.2 oz), SpO2 97 %. O2 Sat (%): 97 % (02/24 1200) O2 Device: room air (02/24 1200) Intake and Output: Intake/Output Summary (Last 24 hours) at 02/24/2020 1230 Last data filed at 02/23/2020 1800 Gross per 24 hour Intake 240 ml Output Net 240 ml Daily Weight: Wt Readings from Last 3 Encounters: 02/24/20 131.2 kg (289 lb 3.2 oz) 02/10/19 127 kg (280 lb) PHYSICAL EXAM: General: Comfortable. Non-Toxic In NAD. Speech clear and unlabored. Respiratory: B/L CTA. Air Exchange Good. No C/W/R Cardiovascular: RRR. Normal S1-S2. No S3. No Murmurs. Abdomen: Soft. NT/ND. Obese. BS Present. No R/G Extremities: No edema, clubbing or cyanosis, pulses palpable 2+ distally. Skin: Warm, Dry, Intact. Neuro: No Gross Focal Deficits. Psychiatric: Alert. Oriented x 3 Current Facility-Administered Medications Medication Dose Route Frequency Provider Last Rate Last Dose acetaminophen (TYLENOL) tablet 650 mg 650 mg Oral Q4H PRN Bakari Dumont MD 650 mg at 02/23/202125 aspirin chewable tablet 81 mg 81 mg Oral Daily Sheldon Chua APRN-[employer] SCALE 81 mg at 02/24/2034 enOXAParin (LOVENOX) injection 40 mg 40 mg Subcutaneous Daily Sheldon Chua APRN-[employer] MAKER SCALE 40 mg at02/24/20 0857 fluticasone (FLONASE) 50 MCG/ACT nasal spray 2 spray 2 spray Nasal Daily Sheldon Chua APRN-[employer] MAKER SCALE 2 spray at 02/23/202125 furOSEmide (LASIX) tablet 40 mg 40 mg Oral BID Sheldon Chua APRN-[employer]ALE 40 mg at 02/24/20833 ipratropium-albuterol (DUONEB) 0.5-2.5 (3) MG/3ML nebulizer solution 3 mL 3 mL Nebulization Q4H PRNSETHEL Vargas isosorbide mononitrate (IMDUR) tablet XL 60 mg 60 mg Oral Daily Sheldon Chua APRN-[employer]KER SCALE 60 mg at 02/24/20833 labetalol (NORMODYNE) injection 20 mg 20 mg Intravenous Q6H PRN Sheldon Chua APRN-CORBY lamoTRIgine (laMICtal) tablet 50 mg 50 mg Oral QHS Sheldon Chua APRN-[employer]ALE 50 mg at 02/23/202118 levothyroxine (SYNTHROID) tablet 112 mcg 112 mcg Oral Before BKF Sheldon Chua APRN-[employer] 112 mcg at 02/24/20 0518 magnesium sulfate 2 g/50 mL in sterile water premix IVPB 2 g 50 mL (total volume) 2 g Intravenous Daily Sheldon Chua APRN-[employer]ALE 2 g at 02/24/20 0800 metoprolol (LOPRESSOR) tablet 50 mg 50 mg Oral Daily Sheldon Chua CYLINDER DIE MACHINE OPERATOR- [employer]DEL MA[employer]ER [employer]ALE 50 mg at 02/24/200834 NIFEdipine (ADALAT-CC) tablet XL 60 mg 60 mg Oral Daily Sheldon Chua, CYLINDER DIE MACHINE OPERATOR-[employer]ALE 60 mg at 02/24/20 0834 ondansetron 4mg/2ml (ZOFRAN) injection 4 mg 4 mg Intravenous Q4H PRN Bakari Dumont MD pantoprazole (PROTONIX) tablet DR 40 mg 40 mg Oral Daily Sheldon Chua APRN-[employer]ALE 40 mg at 02/24/20 0835 potassium chloride (K-DUR) tablet ER 40 mEq 40 mEq Oral Daily ETHEL Donaldson Or potassium chloride 40 mEq in 0.9% sodium chloride 500 ml IVPB 40 mEq Intravenous Daily Sheldon Chua APRN-CORBY sodium chloride 0.9% IV solution Intravenous Continuous Bakari Dumont MD 75 mL/hr at 02/24/20 0920 traMADol (ULTRAM) tablet 50 mg 50 mg Oral Q6H PRN ETHEL Donaldson venlafaxine (EFFEXOR-XR) capsule XR 150 mg 150 mg Oral Every BKF Sheldon Chua APRN-[employer]ALE 150 mg at 02/24/20 0835 Diagnostics: CBC Lab Results Component Value Date WBC 7.0 02/24/2020 HGB 13.3 02/24/2020 HCT 41.3 02/24/2020 PLATELET 197 02/24/2020 MCV 87.5 02/24/2020 COAG Lab Results Component Value Date INR 0.89 02/23/2020 PT 9.7 (L) 02/23/2020 CHEMISTRY Lab Results Component Value Date CREATSERUM 1.42 (H) 02/24/2020 BUN 31 (H) 02/24/2020 SODIUM 136 (L) 02/24/2020 POTASSIUM 3.9 02/24/2020 CHLORIDE 103 02/24/2020 CO2 26 02/24/2020 Lab Results Component Value Date/Time GLUCOSE 105 (H) 02/24/2020 04:55 AM GLUCOSE 109 (A) 02/23/2020 04:31 PM ALBUMIN 3.7 02/24/2020 04:55 AM MAGNESIUM 1.9 02/24/2020 04:55 AM ECHO 02/23/2020: Left Ventricle : The left ventricular systolic function is normal. The left ventricular ejection fraction is within the normal range. LVEF is 55-60%. Transmitral Doppler flow patternsuggests impaired LV relaxation. Right Ventricle : The right ventricle is normal size. The right ventricular systolic function is normal. IMPRESSION: Atypical chest pain Obesity: BMI of 40.0-49.9 Essential Hypertension Hyperlipidemia EDIE Known CAD Patient is clinically stable and chest pain-free. Given her previous history we will request a Cardiolite stress test to be performed in a.m. Further recommendations will be based on this result. PLAN: - Cardiac stress test in a.m. - Continue GDMT - Follow up labs as appropriate - Please see orders for comprehensive details of the plan - Further orders may be forthcoming as patient's hospitalization evolves. Bakari Dumont MD 02/24/2020 Please note Portions of this note utilized [employer] dictation software, please excuse any typographical or grammatical errors * Jalen Thomas II, MD - 02/24/2020 8:50 AM EDT Subjective: The patient denies chest pain, palpitations, shortness of breath, lightheadedness, dizziness, orthopnea, or PND. Telemetry: Sinus rhythm. Vital signs: 02/24/20 0736 97.6 F (36.4 C) 60 16 112/68 97 % SR 02/24/20 0349 0-->alert and calm KB 02/24/20 0349 97.7 F (36.5 C) 62 20 99/64 94 % 131.2 kg (289 lb 3.2 oz) 02/24/20 0000 0-->alert and calm KB 02/24/20 0000 98.3 F (36.8 C) 68 20 91/59 95 % KF I/O's: 02/22 0700 02/22 1459 02/22 1500 02/22 2259 02/22 2300 02/23 0659 Total 02/23 0702/23 1459 Total Intake 240 240 Output Net +240 +240 Examination: General appearance - a morbidly obese female who was alert, oriented, and in no distress at rest. Skin - normal coloration and turgor, no laxity. Nodes - anterior cervical, posterior cervical, epitrochlear, and inguinal nonpalpable. HEENT PERRLA, EOMI, no xanthelasma nor scleral icterus. Neck - short and thick, supple, FROM, No JVD,Carotids upstroke normal bilaterally without bruits. No thyromegaly and no lymphadenopathy. Chest - symmetrical and non-tender. Barrel chested. Lungs - clear to auscultation, full respiratory excursions, no wheezes, rales nor rhonchi Heart - PMI MCL 5th ICS, normal rate and regular rhythm, S1 and S2 normal, no murmurs, rubs, nor gallops noted. Abdomen - morbidly obese, soft, nontender, nondistended. No HSM, masses, nor bruits appreciated. Extremities -no cyanosis, clubbing, nor edema. Upper and lower extremity pulses 2+ bilaterally. No femoral bruits. Musculoskeletal - no joint deformity, no tendon xanthomas. Psych- appropriate mood and affect Neurological - no focal neurological deficits appreciated. Speech fluent and appropriate, moves all4 extremities. Medications: Ecotrin 81 mg orally daily Lovenox 40 mg subcutaneously daily Tylenol 650 mg orally every 4 hours as needed Flonase 50 g per actuation 2 sprays nasally daily Furosemide 40 mg orally every 12 hours DuoNeb 0.5 2.5 mg for 3 mL nebulized every 4 hours as needed Isosorbide mononitrate 60 mg orally daily Labetalol 20 mg intravenously every 6 hours as needed Lamictal 50 mg orally at bedtime Levothyroxine 112 g orally daily Magnesium sulfate 2 g intravenously daily Lopressor 50 mg orally daily Nifedipine XL 60 mg orally daily Zofran 4 mg intravenously every 4 hours as needed Protonix 40 mg orally daily Potassium chloride 40 mEq orally daily Ultram 50 mg orally every 6 hours as needed Effexor XR 150 mg orally daily at breakfast Labs: 12 lead ECG: none CXR: none Transthoracic echocardiogram: 02/23/2020 Normal left ventricular systolic function with an LVEF of 55-60%, grade 1 left ventricular diastolic dysfunction, normal right ventricular size and function, and no significant valvular heart disease. 02/22 0640 02/23 0455 WBC 7.0 HEMOGLOBIN (HGB) 13.3 HEMATOCRIT (HCT) 41.3 PLATELET Count 197 SODIUM 136Low POTASSIUM 3.9 CHLORIDE 103 CARBON DIOXIDE (CO2) 26 BUN 31High CREATININE SERUM 1.42High PT 9.7Low INR 0.89 02/23 0058 02/23 0455 TROPONIN <0.02 POTASSIUM 3.9 MAGNESIUM 1.9 Diagnoses: 1. Precordial chest pain. 2. Coronary artery disease. 3. History of a myocardial infarction. 4. Hypertension. 5. Hyperlipidemia. 6. Morbid obesity. 7. Chronic kidney disease stage III. Assessment & Plan This is a 64-year-old female who describes a history of coronary artery disease and prior myocardial infarction. She presented to the hospital with complaints of precordial chest discomfort of uncertain etiology and is currently chest pain-free, normotensive, and in sinus rhythm. She has ruled out for myocardial infarction with serial cardiac enzymes. She is in sinus rhythm and she has no acute congestive heart failure by physical examination. Her blood pressure has been slightly low but she has been a symptomatic with this. Her heart rate has been well controlled. I would change her Lopressor to metoprolol succinate ER at a dose of 25 mg once daily and continue her other cardiovascular medicines. The patient has normal left ventricular systolic function by echocardiography and no significant valvular heart disease. Schedule her for pharmacologic stress testing. 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 If she does have coronary artery ischemia then plan for her to have diagnostic cardiac catheterization performed. documented in this encounter Hospital Course Note MR#: [id number] [facility] Pt. Name: Alyce Torres Admitted: 03/03/2020 Discharged: 03/03/2020 Date of : 1955 Physician: Derek Aguilar MD DISCHARGE SUMMARY PRINCIPAL DIAGNOSES: 1. Chest pain, felt to be combination of pleuritic/pericardial as well as underlying coronary vascular dysfunction. 2. History of coronary artery disease due to coronary vasospasms versus microvascular dysfunction. 3. Hypertension. 4. Hyperlipidemia. 5. Diet- controlled diabetes mellitus type 2. 6. Obstructive sleep apnea, on CPAP. 7. Obesity, class 3 with BMI of 45. 8. Chronic diastolic heart failure. HOSPITAL COURSE: Again, the patient was admitted to the hospital with chest pain from outside facility, where she had last week echocardiogram as well as well as stress test, which reported unremarkable. The patient's initial workup as well as EKG failed to show any significant abnormalities and the patient seen by Cardiology and felt to be combination again of mentioned (more content not included)... Additional Source Comments INFORMATION SOURCE (unrecogn ized section and content) DATE [facility] DATE CREATED AUTHOR AUTHOR'S ORGANIZ ATION 01/02/2018 [facility] DATE CREATED AUTHOR AUTHOR'S ORGANIZ ATION 03/03/2020 [facility] DATE CREATED AUTHOR AUTHOR'S ORGANIZ ATION 03/13/2020 [facility] DATE CREATED AUTHOR AUTHOR'S ORGANIZ ATION 10/03/2022 [facility] DATE CREATED AUTHOR AUTHOR'S ORGANIZ ATION 11/07/2022 [facility] DATE CREATED AUTHOR AUTHOR'S ORGANIZ ATION 06/22/2023 [facility] Reason for Visit (unrecogniz ed section and content) Reason Comments Nausea 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 The patient reports a history of prior CA and over the past several days has had increasing chest pain. This occurred following an upper respiratory infection, persistent cough over the past couple weeks. Due to the chest pain she presented for evaluation. Routine evaluation was completed in the emergency department. Labs were unremarkable. Troponin was negative. EKG was negative. Due to her symptoms she was admitted for further evaluation. The patient reports undergoing a stress test last year which resulted in a left heart catheterization which was negative. She denies any radiation of the pain to the neck jaw or upper extremity. No associated shortness of breath, diaphoresis. Denies any nausea. She states the point of maximal intensity is midsternal lower border. She denies any recent fevers or chills. Headaches or blurred visions. No dysuria. No skin rashes. Currently she is resting comfortably in the bed in no acute distress at this time. Past Medical History: Diagnosis Date Arthritis Depression Essential hypertension, benign GERD (gastroesophageal reflux disease) Hypothyroidism CA (myocardial infarction) Past Surgical History: Procedure Laterality Date BREAST BIOPSY CHOLECYSTECTOMY HYSTERECTOMY Social History Tobacco Use Smoking status: Never Smoker Smokeless tobacco: Never Used Substance Use Topics Alcohol use: Never Frequency: Never History reviewed. No pertinent family history. Medications Prior to Admission Medication Sig Dispense Refill Last Dose Ascorbic Acid (Vitamin C) 500 MG capsule Take by mouth. 02/23/2020 aspirin 81 MG Chew Tab chewable tablet Chew 81 mg daily. 02/23/2020 Biotin 1 MG capsule Take by mouth. 02/23/2020 celecoxib 200 MG Cap capsule Take 200 mg by mouth 2 times daily. 5 02/23/2020 fluticasone 50 MCG/ACT Suspension nasal spray 2 sprays by Nasal route daily. 02/22/2020 furOSEmide 40 MG Tab tablet Take 40 mg by mouth 2 times daily. 02/23/2020 isosorbide mononitrate 60 MG Tab SR 24 HR tablet XL Take 60 mg by mouth daily. 02/23/2020 lamoTRIgine 25 MG Tab TAKE ONE TABLET BY MOUTH AT BEDTIME FOR TWO WEEKS THEN INCREASE TO TWO TABLETS AT BEDTIME 5 02/22/2020 levothyroxine 112 MCG Tab tablet Take 112 mcg by mouth daily. 5 02/23/2020 metoprolol 25 MG tab regular release Take 50 mg by mouth daily. 02/23/2020 NIFEdipine 60 MG (OSM) tablet XL Take 60 mg by mouth daily. 5 02/23/2020 Mcloud-3 Fatty Acids (Fish Oil) 1000 MG capsule Take by mouth daily. 2 tabs daily 02/23/2020 omepraz[address] capsule Take 1 capsule by mouth daily. (Patient taking differently: Take 40 mg by mouth 2 times daily as needed. ) 30 capsule 1 02/23/2020 spironolactone 25 MG Tab tablet Take 25 mg by mouth 2 times daily. 02/23/2020 traMADol 50 MG Tab tablet Take 50 mg by mouth every 6 hours as needed. 02/22/2020 VENLAFAXINE HCL PO Take 150 mg by mouth daily. 02/23/2020 Vitamin D3 25 MCG (1000 UT) tablet Take 1,000 Units by mouth daily. 02/23/2020 hydroCODone-acetaminophen 5-325 MG Tab tablet Take 1 tablet by mouth 4 times daily as needed. ondansetron 4 MG Tab Dispersible tablet Take 1 tablet by mouth every 4 hours as needed for Nausea. Place on tongue 10 tablet 0 Allergies Allergen Reactions Betadine [Povidone Iodine] Review of Systems: Ten systems reviewed and found to be negative unless otherwise stated in the history and present illness. PHYSICAL EXAM: Patient Vitals for the past 8 hrs: BP Temp Temp src Pulse Resp SpO2 Height Weight 02/23/20 0933 1.676 m (5' 6 ) 128.8 kg (284 lb) 02/23/20 0915 93/62 96.2 F (35.7 C) Temporal 82 18 98 % 02/23/20 0912 110/70 64 14 96 % 02/23/20 0910 108/62 65 16 98 % 02/23/20 0900 101/57 65 15 96 % 02/23/20 0830 102/57 65 14 97 % 02/23/20 0800 108/65 65 18 95 % 02/23/20 0645 117/56 98.2 F (36.8 C) Oral 69 20 94 % General: Patient resting comfortably. Awake. No acute distress. HEENT: Normalcephalic, atraumatic. Pupils equal, round, reactive, to light and accomodation B/L. Ears normal, no erythema or drainage. Bilateral nares patent without obvious drainage. Oral mucosa moist, pink, intact without ulcers or lesions. Neck: No JVD, no thyromegaly, no anterior or posterior cervical lymphadenopathy. Cardiovascular: Regular rate and rhythm, without murmurs, rubs, or gallops. Respiratory: Bilateral Upper and Lower Lobes anterior and posteriorly without wheezes, rales, or rhonchi Gastrointestinal: Soft, rounded, non-tender. Bowel sounds present x4 quadrants. No rebound. No organomegaly or masses noted upon deep palpation. Musculoskeletal: No edema, clubbing or cyanosis, pulses palpable 2+ distally. Muscle strength and tone symmetrical. Skin: Warm, Dry, Intact. No obvious rashes or lesions noted. Neuro: Cranial nerves 2-12 grossly intact upon seated examination. No focal defiects noted. Physiatric: Patient awake, alert, orientedx3. Mood and affect appropriate. Diagnostics: Admission on 02/23/2020 Component Date Value TROPONIN 02/23/2020 <0.02 GLUCOSE 02/23/2020 106* BUN 02/23/2020 30* CREATININE SERUM 02/23/2020 1.55* SODIUM 02/23/2020 137 POTASSIUM 02/23/2020 4.1 CHLORIDE 02/23/2020 102 CARBON DIOXIDE (CO2) 02/23/2020 25 ESTIMATED GFR, NON AFRIC* 02/23/2020 36 ESTIMATED GFR, A* 02/23/2020 44 GFR COMMENT 02/23/2020 Average GFR for 60-69 years old = 85. WBC (WHITE BLOOD COUNT) 02/23/2020 10.0 RBC 02/23/2020 5.32 HEMOGLOBIN (HGB) 02/23/2020 15.1 HEMATOCRIT (HCT) 02/23/2020 46.3 MEAN CELL VOLUME 02/23/2020 86.9 Mean Cell HGB 02/23/2020 28.4 MEAN CELL HGB CONCENTRAT* 02/23/2020 32.7 RBC DISTRIBUTION 02/23/2020 14.5 PLATELET COUNT 02/23/2020 252 MEAN PLATELET VOLUME 02/23/2020 11.3* NEUTROPHILS 02/23/2020 78* LYMPHOCYTE 02/23/2020 13* MONOCYTE % 02/23/2020 6 EOSINOPHIL % 02/23/2020 2 BASOPHIL % 02/23/2020 1 RBC COMMENTS 02/23/2020 1+ WBC MORPHOLOGY STATUS 02/23/2020 <10% BANDS PRESENT DIFFERENTIAL TYPE 02/23/2020 AUTO DIFF PLATELET COMMENT 02/23/2020 ADEQUATE PT 02/23/2020 9.7* INR 02/23/2020 0.89 CHOLESTEROL 02/23/2020 177 TRIGLYCERIDE 02/23/2020 197* HDL CHOLESTEROL 02/23/2020 40 LDL CHOLESTEROL, CALCULA* 02/23/2020 98 VLDL 02/23/2020 39* TCHOL/HDL RATIO, MANUAL * 02/23/2020 4.43 Impression and Plan: Principal Problem: Chest pain, rule out acute myocardial infarction Active Problems: Benign hypertension Hyperlipidemia EDIE (acute kidney injury) Obesity: body mass index of 40.0-49.9 EDIE (acute kidney injury) Volume expand Trend labs Monitor intake and outputs Benign hypertension Continue home medications and monitor VS per protocol. Follow-up with PCP after discharge for further evaluation and management. Chest pain, rule out acute myocardial infarction EKG/Troponin negative in ED Cycle Enzymes Check ECHO C/s - Cardiology Continue ASA Check Lipid panel Hyperlipidemia Resume home medications Follow-up with PCP after discharge Obesity: body mass index of 40.0-49.9 Dietary and Lifestyle modifications to be discussed with PCP after discharge. Code Status: Full Code GI/DVT Prophylaxis: Protonix/Lovenox Sheldon Chua, CORBY completing HPI for Dr. Cho Please note Portions of this note utilized [employer] dictation software, please excuse any typographical or grammatical errors Associated attestation - Ashish Cho MD - 02/23/2020 11:39 AM EDT I have personally seen and examined Alyce Torres and I agree with the physical exam as stated below. I have personally reviewed all available clinical data related to today's encounter including, but not limited to, radiology images and reports, laboratory data, and procedure reports. I have been fully involved in formulation of the assessment and plan and agree with the MODEL MAKER SCALE findings and plan of care as documented. I agree with their findings and plan with any exceptions or additions noted below. History of CAD with CA in 1998 who had a repeat left heart catheterization about a year ago by her computer systems security analyst. Presented with sudden onset of chest tightness this morning at her work place and felt nauseated and light headed. Her chest pain is reproducible on palpation in the lower sternal border. First set of troponin negative. EKG non acute. Had a dry cough for the last couple of weeks. Has history of seasonal allergy. Will continue ruling out acute CA. Echocardiogram and cardiology consult pending. Principal Problem: Chest pain, rule out acute myocardial infarction Active Problems: Obesity: body mass index of 40.0-49.9 Benign hypertension Hyperlipidemia EDIE (acute kidney injury) documented in this encounter Jalen Thomas II, MD - 02/23/2020 9:53 AM EDT Consult Notes (unrecognized section and content) Associated Order(s): IP CONSULT TO CARDIOLOGY Chief Complaint Precordial chest pain. HPI Alyce Torres is a 64 y.o. female who was seen by [facility] cardiology today for evaluation after she was admitted to telemetry bed with complaints of 7 out of 10 precordial chest discomfort. This was associated with shortness of breath, diaphoresis, and nausea. The patient reports that she has had a chronic cough for the past 3 weeks. The patient describes a history of coronary artery disease and myocardial infarction occurring in 1998. A diagnostic cardiac catheterization was performed at the time but she had no intervention performed by angioplasty and stenting or by CABG. Instead, she was managed medically. She has multiple cardiac risk factors including her age, hypertension, hyperlipidemia, morbid obesity, a family history of cardiovascular disease, and chronic kidney disease stage III. She presented to the [facility] emergency room and was given aspirin. A cardiovascular consultation was requested to help to guide her therapy. Patient Active Problem List Diagnosis Chest pain, rule out acute myocardial infarction Obesity: body mass index of 40.0-49.9 Benign hypertension Hyperlipidemia Chest pain, rule out acute myocardial infarction EDIE (acute kidney injury) Past Medical History: Diagnosis Date Arthritis Depression Essential hypertension, benign GERD (gastroesophageal reflux disease) Hypothyroidism CA (myocardial infarction) 1. Coronary artery disease: yes. The patient had a diagnostic cardiac catheterization performed about 12 years ago and it was deemed that she be treated medically. 2. Myocardial infarction: yes 3. Congestive Heart Failure: no 4. Cardiomyopathy: no 5. Arrhythmia: no 6. Valvular heart disease: The patient had a transthoracic echocardiogram performed on 12/17/2017 at [facility]. This was interpreted as showing normal left ventricular systolic function with an EF exceeding 55%, no segmental wall motion abnormalities, mildly thickened mitral valve leaflets with trivial mitral regurgitation, a trileaflet aortic valve, trivial tricuspid regurgitation, and no pulmonary hypertension. Her RV systolic pressure was 18 mmHg. 7. Congenital heart disease: no 8. Cerebrovascular Accident: no 9. Transient Ischemic Attack: no 10. Chronic anticoagulation: no 11. Peripheral vascular disease: no 12. Hypertension: yes 13. Hypertensive Heart Disease: Unknown. 14. Hyperlipidemia: yes 15. Diabetes Mellitus: yes 16. Gastroesophageal disease, Peptic ulcer disease, hiatal hernia, esophageal spasm: yes 17. Thyroid disease: yes, hypothyroidism. 18. Syncope: yes, a history of recurrent episodes of near syncope. 19. Collagen vascular disease: no 20. Gastrointestinal bleed: no 21. COPD, asthma, emphysema, chronic bronchitis: yes, asthma. 22. Chronic or acute respiratory failure: no 23. Pneumonia: no 24. Acute or chronic kidney disease: yes, chronic kidney disease stage III. 24. Anemia: no 25. Rheumatic fever: no 26. Bleeding diatheses: no 27. Cancer: no 28. Chemotherapy or Radiation: no 29. Aortic aneurysm: no 30. Carotid arterial disease: no 31. Liver disease: no 32. Gallbladder disease: no 33. Seizure: no 34. Migraine headache: no 35. Vasculitis: no 36. HONEYCOMB DECAPPER/OB: Status post a hysterectomy procedure. 37. Obesity: yes 38. HIV: no 39. Heart murmur: no 40. Arthritis: yes 41. Tuberculosis: no 42. Sleep apnea: no 43. Other: See above. Past Surgical History: Procedure Laterality Date BREAST BIOPSY CHOLECYSTECTOMY HYSTERECTOMY Medications Prior to Admission Medication Sig Dispense Refill Last Dose Ascorbic Acid (Vitamin C) 500 MG capsule Take by mouth. 02/23/2020 aspirin 81 MG Chew Tab chewable tablet Chew 81 mg daily. 02/23/2020 Biotin 1 MG capsule Take by mouth. 02/23/2020 celecoxib 200 MG Cap capsule Take 200 mg by mouth 2 times daily. 5 02/23/2020 fluticasone 50 MCG/ACT Suspension nasal spray 2 sprays by Nasal route daily. 02/22/2020 furOSEmide 40 MG Tab tablet Take 40 mg by mouth 2 times daily. 02/23/2020 isosorbide mononitrate 60 MG Tab SR 24 HR tablet XL Take 60 mg by mouth daily. 02/23/2020 lamoTRIgine 25 MG Tab TAKE ONE TABLET BY MOUTH AT BEDTIME FOR TWO WEEKS THEN INCREASE TO TWO TABLETS AT BEDTIME 5 02/22/2020 levothyroxine 112 MCG Tab tablet Take 112 mcg by mouth daily. 5 02/23/2020 metoprolol 25 MG tab regular release Take 50 mg by mouth daily. 02/23/2020 NIFEdipine 60 MG (OSM) tablet XL Take 60 mg by mouth daily. 5 02/23/2020 Mcloud-3 Fatty Acids (Fish Oil) 1000 MG capsule Take by mouth daily. 2 tabs daily 02/23/[address] omep[address] capsule Take 1 capsule by mouth daily. (Patient taking differently: Take 40 mg by mouth 2 times daily as needed. ) 30 capsule 1 02/23/2020 spironolactone 25 MG Tab tablet Take 25 mg by mouth 2 times daily. 02/23/2020 traMADol 50 MG Tab tablet Take 50 mg by mouth every 6 hours as needed. 02/22/2020 VENLAFAXINE HCL PO Take 150 mg by mouth daily. 02/23/2020 Vitamin D3 25 MCG (1000 UT) tablet Take 1,000 Units by mouth daily. 02/23/2020 hydroCODone-acetaminophen 5-325 MG Tab tablet Take 1 tablet by mouth 4 times daily as needed. ondansetron 4 MG Tab Dispersible tablet Take 1 tablet by mouth every 4 hours as needed for Nausea. Place on tongue 10 tablet 0 Scheduled medications [START ON 02/24/2020] aspirin 81 mg Oral Daily enoxaparin 40 mg Subcutaneous Daily fluticasone 2 spray Nasal Daily furOSEmide 40 mg Oral BID [START ON 02/24/2020] isosorbide mononitrate 60 mg Oral Daily lamoTRIgine 50 mg Oral QHS [START ON 02/24/2020] levothyroxine 112 mcg Oral Before BKF magnesium sulfate IVPB 2 g Intravenous Daily [START ON 02/24/2020] metoprolol 50 mg Oral Daily [START ON 02/24/2020] NIFEdipine 60 mg Oral Daily pantoprazole 40 mg Oral Daily [START ON 02/24/2020] potassium chloride 40 mEq Oral Daily Or [START ON 02/24/2020] potassium chloride 40 mEq Intravenous Daily [START ON 02/24/2020] venlafaxine 150 mg Oral Every BKF Continuous Infusions sodium chloride 0.9% PRN Medications acetaminophen, ipratropium-albuterol, labetalol, ondansetron 4mg/2ml, traMADol Allergies Allergen Reactions Betadine [Povidone Iodine] Social History Socioeconomic History Marital status: Spouse name: Not on file Number of children: Not on file Years of education: Not on file Highest education level: Not on file Occupational History Not on file Social Needs Financial resource strain: Not on file Food insecurity Worry: Not on file Inability: Not on file Transportation needs Medical: Not on file Non-medical: Not on file Tobacco Use Smoking status: Never Smoker Smokeless tobacco: Never Used Substance and Sexual Activity Alcohol use: Never Frequency: Never Drug use: Never Sexual activity: Not on file Lifestyle Physical activity Days per week: Not on file Minutes per session: Not on file Stress: Not on file Relationships Social connections Talks on phone: Not on file Gets together: Not on file Attends tenriism service: Not on file Active member of club or organization: Not on file Attends meetings of clubs or organizations: Not on file Relationship status: Not on file Intimate partner violence Fear of current or ex partner: Not on file Emotionally abused: Not on file Physically abused: Not on file Forced sexual activity: Not on file Other Topics Concern Not on file Social History Narrative Not on file Family history: Significant for cardiovascular disease in first degree relatives. The patient's mother suffered from cardiovascular disease and so did her maternal grandmother. Review of System 1. Chest discomfort: yes 2. Shortness of breath: yes 3. Palpitations: no 4. Dizziness: no 5. Lightheadedness: no 6. Syncope: no 7. Nausea: yes 8. Vomiting: no 9. Diaphoresis: yes 10. Jaw discomfort: no 11. Neck discomfort: no 12. Back discomfort: no 13. Arm discomfort or numbness: no 14. Orthopnea: no 15. PND: no 16. Increased abdominal girth: no 17. Weight gain/loss: no 18. Malaise: yes 19. Fatigue: no 20. Exercise intolerance: no 21. Hematemesis, hemoptysis, hematuria, melena, or hematochezia: no 22. Lower extremity swelling:no 23. Fevers/chills:no 24. Cough:no Physical Exam Blood pressure 93-110/56-70, pulse 65-82, temperature 96.2 F (35.7 C), temperature source Temporal, resp. rate 14-20, height 1.676 m (5' 6 ), weight 128.8 kg (284 lb), SpO2 98 %. BMI 45.84 kg/m . General appearance - a morbidly obese female who was alert, oriented, and in no distress at rest. She claimed to have recurrent chest discomfort with mild exertion. Skin - normal coloration and turgor, no laxity. Nodes - anterior cervical, posterior cervical, epitrochlear, and inguinal nonpalpable. HEENT PERRLA, EOMI, no xanthelasma nor scleral icterus. Neck - short and thick, supple, FROM, No JVD,Carotids upstroke normal bilaterally without bruits. No thyromegaly and no lymphadenopathy. Chest - symmetrical and non-tender. Barrel chested. Lungs - clear to auscultation, full respiratory excursions, no wheezes, rales nor rhonchi Heart - PMI MCL 5th ICS, normal rate and regular rhythm, S1 and S2 normal, no murmurs, rubs, nor gallops noted. Abdomen - morbidly obese, soft, nontender, nondistended. No HSM, masses, nor bruits appreciated. Extremities -no cyanosis, clubbing, nor edema. Upper and lower extremity pulses 2+ bilaterally. No femoral bruits. Musculoskeletal - no joint deformity, no tendon xanthomas. Psych- appropriate mood and affect Neurological - no focal neurological deficits appreciated. Speech fluent and appropriate, moves all 4 extremities. Labs: 12 lead ECG: From 02/23/2020 at 6:34 AM this showed sinus rhythm at 70 bpm, a normal axis, normal intervals, abnormal precordial R-wave progression, T-wave inversions in leads V1 and V2 and T-wave flattening in leads V3 through V5 of uncertain significance. Chest x-ray: 02/23/2020 1. No acute cardiopulmonary process. Ref Range & Units 02/23/20 0640 TROPONIN 0 - 0.08 ng/mL <0.02 Ref Range & Units 02/23/20 0640 GLUCOSE 70 - 100 MG/DL 106High Comment: NORMAL <100 mg/dL PREDIABETES 101-126 mg/dL DIABETES 126 mg/dL or higher BUN 7 - 20 MG/DL 30High CREATININE SERUM 0.7 - 1.2 MG/DL 1.55High SODIUM 137 - 145 MMOL/L 137 POTASSIUM 3.5 - 5.1 MMOL/L 4.1 CHLORIDE 98 - 107 MMOL/L 102 Comment: Please note: Triglyceride levels of 600mg/dL or higher may positively bias chloride results by approximately 2.1 mmol CARBON DIOXIDE (CO2) 22 - 30 MMOL/L 25 ESTIMATED GFR, NON AMER ml/min/1.73sq.m 36 ESTIMATED GFR, ml/min/1.73sq.m 44 GFR COMMENT Average GFR for 60-69 years old = 85. Comment: Chronic Kidney disease, GFR = <60. Kidney failure, GFR = <15. Ref Range & Units 02/23/20 0640 WBC (WHITE BLOOD COUNT) 3.6 - 11.0 10*3/uL 10.0 RBC 4.0 - 5.4 10*6/uL 5.32 HEMOGLOBIN (HGB) 12.0 - 16.0 G/DL 15.1 HEMATOCRIT (HCT) 36.0 - 48.0 % 46.3 MEAN CELL VOLUME 80.0 - 100.0 FL 86.9 Mean Cell HGB 26.0 - 35.0 PG 28.4 MEAN CELL HGB CONCENTRATION 27.0 - 37.0 G/DL 32.7 RBC DISTRIBUTION 11.5 - 14.5 % 14.5 PLATELET COUNT 130.0 - 400.0 10*3/uL 252 MEAN PLATELET VOLUME 7.4 - 11.0 FL 11.3High NEUTROPHILS 37.0 - 75.0 % 78High LYMPHOCYTE 20.0 - 55.0 % 13Low MONOCYTE % 0.0 - 10.0 % 6 EOSINOPHIL % 0.0 - 11.0 % 2 BASOPHIL % 0.0 - 2.0 % 1 RBC COMMENTS 1+ Comment: POIKILOCYTE 1+ HYPOCHROMIA WBC MORPHOLOGY STATUS <10% BANDS PRESENT DIFFERENTIAL TYPE % AUTO DIFF Ref Range & Units 02/23/20 0640 PT 10.0 - 13.0 SEC 9.7Low INR 0.87 - 1.13 0.89 Ref Range & Units 02/23/20 0640 CHOLESTEROL 107 - 217 MG/DL 177 TRIGLYCERIDE 0 - 150 MG/DL 197High HDL CHOLESTEROL 33 - 75 MG/DL 40 LDL CHOLESTEROL, CALCULATED MG/DL 98 VLDL 5.0 - 25 MG/DL 39High TCHOL/HDL RATIO, MANUAL ENTER RATIO 4.43 Patient Active Problem List Diagnosis Date Noted Chest pain, rule out acute myocardial infarction 02/23/2020 EDIE (acute kidney injury) 02/23/2020 Obesity: body mass index of 40.0-49.9 02/10/2019 Benign hypertension 02/10/2019 Hyperlipidemia 02/10/2019 Chest pain, rule out acute myocardial infarction 02/09/2019 Diagnoses: 1. Precordial chest pain. 2. Coronary artery disease. 3. Status post a myocardial infarction. 4. Hypertension. 5. Hyperlipidemia. 6. Morbid obesity. 7. Chronic kidney disease stage III. Assessment & Plan This is a 64-year-old female who describes a history of coronary artery disease and prior myocardial infarction. She presents with complaints of precordial chest discomfort of uncertain etiology and is currently chest pain-free, normotensive, and in sinus rhythm. However, she states that she experiences recurrent chest discomfort with mild exertion. Her first set of cardiac enzymes is normal and her ECG shows sinus rhythm with nonspecific septal T-wave changes. She has no acutely decompensated congestive heart failure by physical examination. I would add Plavix to the patient's regimen and give her 600 mg today followed by 75 mg daily starting tomorrow. I would continue her daily aspirin and I would continue her metoprolol. I would only continue the nifedipine if she has sufficient blood pressure to tolerate this. I'll give her nitroglycerin sublingually as needed and I would add Lovenox to her regimen at a therapeutic dose for an acute coronary syndrome while she is being ruled out for myocardial infarction. I would add statin therapy for her dyslipidemia and to help to improve her endothelial function. I would check echocardiography to assess her ventricular function and to rule out any significant structural or valvular heart disease. If she rules out for myocardial infarction I would pursue pharmacologic (dobutamine stress echocardiography with Definity echocardiographic contrast) stress testing for her. If she rules in for myocardial infarction I would recommend that she have a diagnostic cardiac catheterization performed. documented in this encounter Mindi Norris RN - 02/23/2020 9:10 AM Mindi Murphy RN - 02/23/2020 8:55 AM Gemini Orozco PCA - 02/23/2020 8:34 AM Mindi Murphy RN - 02/23/2020 8:15 AM EDT ED Notes (unrecognized secti on and content) Transferred to room 215 via cart. Bedside report to Yareli Crowley RN. Skin pink, warm and dry. Alert and oriented. No distress noted. alarm security or surveillance monitor RSR. Called floor, states Ok to transfer to 215 Received bed placement from [facility] room 215 Refuses breakfast at this time. Dr. Gomez speaks to Dr. Dumont Emergency Department Report [facility] Service Date:.02/23/20 PCP: Patrick Mancilla Chief Complaint: No chief complaint on file. SHARMILA Torres is a 64 y.o. female presents to the ED today due to Chest pain. 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 She took a baby aspirin approximately 3:30 AM. She admits to shortness of breath with exertion. She had slight nausea but no vomiting. She denies any abdominal discomfort .patient has chronic swelling in lower extremities but no increase in swelling. She admits to chronic cough for 3 weeks. She recently traveled to [place] a month ago. she denies sick contacts. She has no fever or upper respiratory symptoms. She denies any near-syncope or syncope. She does admit to being under some stress recently. She has a history of depression but no history of anxiety or panic attacks. She states she has a history of coronary vascular disease. Since she had a heart attack back in which was stress related. She said she had a cardiac catheterization back then which did not show any stent of the lesion. 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 She was recently started on metoprolol for blood pressure issues. She has a family history of coronary vascular disease. Review of Systems: Review of Systems Constitutional: Negative. HENT: Negative. Eyes: Negative. Respiratory: Positive for cough, chest tightness and shortness of breath. Negative for apnea, choking, wheezing and stridor. Cardiovascular: Positive for chest pain and leg swelling. Negative for palpitations. Gastrointestinal: Positive for nausea. Negative for abdominal distention, abdominal pain, anal bleeding, blood in stool, constipation, diarrhea, rectal pain and vomiting. Endocrine: Negative. Genitourinary: Negative. Musculoskeletal: Positive for back pain. Negative for arthralgias, gait problem, joint swelling, myalgias, neck pain and neck stiffness. Skin: Negative. Allergic/Immunologic: Negative. Neurological: Negative. Hematological: Negative. All other systems reviewed and are negative. Past Medical History: Past Medical History: Diagnosis Date Arthritis Depression Essential hypertension, benign GERD (gastroesophageal reflux disease) Hypothyroidism CA (myocardial infarction) Past Surgical History: Past Surgical History: Procedure Laterality Date BREAST BIOPSY CHOLECYSTECTOMY HYSTERECTOMY Allergies: Allergies Allergen Reactions Betadine [Povidone Iodine] Medications: Patient's Medications New Prescriptions No medications on file Previous Medications ASCORBIC ACID (VITAMIN C) 500 MG CAPSULE Take by mouth. ASPIRIN 81 MG CHEW TAB CHEWABLE TABLET Chew 81 mg daily. BIOTIN 1 MG CAPSULE Take by mouth. CELECOXIB 200 MG CAP CAPSULE Take 200 mg by mouth 2 times daily. FLUTICASONE 50 MCG/ACT SUSPENSION NASAL SPRAY 2 sprays by Nasal route daily. FUROSEMIDE 40 MG TAB TABLET Take 40 mg by mouth 2 times daily. HYDROCODONE-ACETAMINOPHEN 5-325 MG TAB TABLET Take 1 tablet by mouth 4 times daily as needed. ISOSORBIDE MONONITRATE 60 MG TAB SR 24 HR TABLET XL Take 60 mg by mouth daily. LAMOTRIGINE 25 MG TAB TAKE ONE TABLET BY MOUTH AT BEDTIME FOR TWO WEEKS THEN INCREASE TO TWO TABLETS AT BEDTIME LEVOTHYROXINE 112 MCG TAB TABLET Take 112 mcg by mouth daily. METOPROLOL 25 MG TAB REGULAR RELEASE Take 50 mg by mouth daily. NIFEDIPINE 60 MG (OSM) TABLET XL Take 60 mg by mouth daily. OMEGA-3 FATTY ACIDS (FISH OIL) 1000 MG CAPSULE Take by mouth daily. 2 tabs daily OMEPRAZOLE [address] CAPSULE Take 1 capsule by mouth daily. ONDANSETRON 4 MG TAB DISPERSIBLE TABLET Take 1 tablet by mouth every 4 hours as needed for Nausea. Place on tongue SPIRONOLACTONE 25 MG TAB TABLET Take 25 mg by mouth 2 times daily. TRAMADOL 50 MG TAB TABLET Take 50 mg by mouth every 6 hours as needed. VENLAFAXINE HCL PO Take 150 mg by mouth daily. VITAMIN D3 25 MCG (1000 UT) TABLET Take 1,000 Units by mouth daily. Modified Medications No medications on file Discontinued Medications No medications on file Family History: History reviewed. No pertinent family history. Social History: Social History Socioeconomic History Marital status: Spouse name: Not on file Number of children: Not on file Years of education: Not on file Highest education level: Not on file Occupational History Not on file Social Needs Financial resource strain: Not on file Food insecurity Worry: Not on file Inability: Not on file Transportation needs Medical: Not on file Non-medical: Not on file Tobacco Use Smoking status: Never Smoker Smokeless tobacco: Never Used Substance and Sexual Activity Alcohol use: Never Frequency: Never Drug use: Never Sexual activity: Not on file Lifestyle Physical activity Days per week: Not on file Minutes per session: Not on file Stress: Not on file Relationships Social connections Talks on phone: Not on file Gets together: Not on file Attends tenriism service: Not on file Active member of club or organization: Not on file Attends meetings of clubs or organizations: Not on file Relationship status: Not on file Intimate partner violence Fear of current or ex partner: Not on file Emotionally abused: Not on file Physically abused: Not on file Forced sexual activity: Not on file Other Topics Concern Not on file Social History Narrative Not on file Physical Exam: Physical Exam Vitals signs and nursing note reviewed. Constitutional: General: She is not in acute distress. Appearance: Normal appearance. She is not diaphoretic. HENT: Head: Normocephalic. Right Ear: External ear normal. Left Ear: External ear normal. Nose: Nose normal. Mouth/Throat: Mouth: Mucous membranes are moist. Neck: Musculoskeletal: Neck supple. Cardiovascular: Rate and Rhythm: Normal rate and regular rhythm. Pulses: Normal pulses. Heart sounds: Normal heart sounds. No murmur. No friction rub. No gallop. Pulmonary: Effort: Pulmonary effort is normal. No respiratory distress. Breath sounds: Normal breath sounds. No stridor. No wheezing, rhonchi or rales. Chest: Chest wall: Tenderness present. Abdominal: General: Abdomen is flat. There is no distension. Palpations: Abdomen is soft. There is no mass. Tenderness: There is no abdominal tenderness. There is no right CVA tenderness, left CVA tenderness, guarding or rebound. Hernia: No hernia is present. Skin: Capillary Refill: Capillary refill takes less than 2 seconds. Findings: No rash. Neurological: General: No focal deficit present. Mental Status: She is alert and oriented to person, place, and time. Cranial Nerves: No cranial nerve deficit. Sensory: No sensory deficit. Motor: No weakness. Vital Signs During ED Visit Patient Vitals for the past 24 hrs: BP Temp Temp src Pulse Resp SpO2 02/23/20 0800 108/65 65 18 95 % 02/23/20 0645 117/56 98.2 F (36.8 C) Oral 69 20 94 % Orders/Results: Orders Placed This Encounter XR CHEST AP PORTABLE TROPONIN CHEM 7 (LYTES,BUN,CREA,GLUC) CBC, EDIF, PLATELET PROTIME-INR ECG VENLAFAXINE HCL PO Vitamin D3 25 MCG (1000 UT) tablet Biotin 1 MG capsule metoprolol 25 MG tab regular release aspirin 81 MG Chew Tab chewable tablet DISCONTD: aspirin chewable tablet 324 mg aspirin chewable tablet 243 mg acetaminophen (TYLENOL) tablet 650 mg ondansetron 4mg/2ml (ZOFRAN) injection 4 mg Mcloud-3 Fatty Acids (Fish Oil) 1000 MG capsule Ascorbic Acid (Vitamin C) 500 MG capsule Results for orders placed or performed during the hospital encounter of 02/23/20 TROPONIN Result Value Ref Range TROPONIN <0.02 0 - 0.08 ng/mL CHEM 7 (LYTES,BUN,CREA,GLUC) Result Value Ref Range GLUCOSE 106 (H) 70 - 100 MG/DL BUN 30 (H) 7 - 20 MG/DL CREATININE SERUM 1.55 (H) 0.7 - 1.2 MG/DL SODIUM 137 137 - 145 MMOL/L POTASSIUM 4.1 3.5 - 5.1 MMOL/L CHLORIDE 102 98 - 107 MMOL/L CARBON DIOXIDE (CO2) 25 22 - 30 MMOL/L ESTIMATED GFR, NON AMER 36 ml/min/1.73sq.m ESTIMATED GFR, 44 ml/min/1.73sq.m GFR COMMENT Average GFR for 60-69 years old = 85. CBC, EDIF, PLATELET Result Value Ref Range WBC (WHITE BLOOD COUNT) 10.0 3.6 - 11.0 10*3/uL RBC 5.32 4.0 - 5.4 10*6/uL HEMOGLOBIN (HGB) 15.1 12.0 - 16.0 G/DL HEMATOCRIT (HCT) 46.3 36.0 - 48.0 % MEAN CELL VOLUME 86.9 80.0 - 100.0 FL Mean Cell HGB 28.4 26.0 - 35.0 PG MEAN CELL HGB CONCENTRATION 32.7 27.0 - 37.0 G/DL RBC DISTRIBUTION 14.5 11.5 - 14.5 % PLATELET COUNT 252 130.0 - 400.0 10*3/uL MEAN PLATELET VOLUME 11.3 (H) 7.4 - 11.0 FL NEUTROPHILS 78 (H) 37.0 - 75.0 % LYMPHOCYTE 13 (L) 20.0 - 55.0 % MONOCYTE % 6 0.0 - 10.0 % EOSINOPHIL % 2 0.0 - 11.0 % BASOPHIL % 1 0.0 - 2.0 % RBC COMMENTS 1+ WBC MORPHOLOGY STATUS <10% BANDS PRESENT DIFFERENTIAL TYPE AUTO DIFF % PLATELET COMMENT ADEQUATE PROTIME-INR Result Value Ref Range PT 9.7 (L) 10.0 - 13.0 SEC INR 0.89 0.87 - 1.13 Radiographic Imaging XR CHEST AP PORTABLE Final Result IMPRESSION: 1. No acute cardiopulmonary process. Procedures: Procedures: EKG shows NSR rate 70: KS interval 196 ms, QRS duration 82 ms;no ST or T-wave changes. No signs of acute ischemia ED Summary/MDM Patient states she has a history of coronary disease but does not have any cardiac stents. Her calculated heart score was 4. This places her at moderate risk for any major cardiac event. EKG has no signs of ischemia. Troponin is negative. Chest x-ray is clear there is no infiltrate, congestion, mediastinum within normal limits; lungs bilaterally inflated. Based on history and exam; there are no clinical signs of PE, aneurysm, or dissection. I discussed case with Dr. Bakari Dumont. He was in agreement with observation admission to telemetry. patient was also agreement observation. patient is very stable upon admission without any active chest Clinical Impression: 1. Chest pain, unspecified type No follow-ups on file. New Prescriptions No medications on file Discontinued Medications No medications on file An After Visit Summary was printed and given to the patient with above information. . . Lisandro Gomez MD 02/23/20 0811 Lisandro Gomez MD 02/23/20 0822 documented in this encounter Nursing Notes - Johanna Jesus RN - 02/25/2020 4:34 PM EDTNursing Notes - Johanna Jesus RN - 02/25/2020 4:20 PM EDTNursing Notes - Johanna Jesus RN - 02/25/2020 11:50 AM EDT Miscellaneous Notes (unrecog nized section and content) Discharge instructions reviewed with the patient. Patient voices no concerns or questions at this time. Stress Echo results read to Emily Chua CNP. States it is okay to discharge the patient. Patient assessment remains unchanged from previous. Denies needs, call light in reach. Safety education reinforced. No change from previous assessment NPO status maintained call light and personal items within reach No change from previous assessment pt sleeping call light and personal items within reach NPO status maintained Assessment unchanged from 0800 documentation Patient sleeping between care no change from previous assessment No change from previous assessment pt denies needs at this time call light and personal items within reach Patient assessment remains unchanged at this time. Patient complains of Head ache at this time. Patient given tylenol at this time. No further needs noted, call light in reach. Associated Problem(s): Obesity: body mass index of 40.0-49.9 Dietary and Lifestyle modifications to be discussed with PCP after discharge. Associated Problem(s): Hyperlipidemia Resume home medications Follow-up with PCP after discharge Associated Problem(s): Chest pain, rule out acute myocardial infarction EKG/Troponin negative in ED Cycle Enzymes Check ECHO C/s - Cardiology Continue ASA Check Lipid panel Associated Problem(s): Benign hypertension Continue home medications and monitor VS per protocol. Follow-up with PCP after discharge for further evaluation and management. Associated Problem(s): EDIE (acute kidney injury) Volume expand Trend labs Monitor intake and outputs documented in this encounter Patient Care team informatio n (unrecognized section and content) Personnel Name: PATRICK MANCILLA MD Address: Address: [address] [place] [id number] FOR RECORDS PERTAINING TO PATIENTS WHO ARE OR HAVE BEEN ENROLLED IN A CHEMICAL DEPENDENCY/SUBSTANCEABUSE PROGRAM, SOME INFORMATION MAY BE OMITTED. This clinical summary was aggregated from multiple sources. Caution should be exercised in using it in the provision of clinical care. This summary normalizes information from multiple sources, and as a consequence, information in this document may materially change the coding, format and clinical context of patient data. In addition, data may be omitted in some cases. CLINICAL DECISIONS SHOULD BE BASED ON THE PRIMARY CLINICAL RECORDS. [facility]. provides no warranty or guarantee of the accuracy or completeness of information in this document.
[2023-07-04 08:07] LABS: Glucometer 128 mg/dL (74-106)
[2023-07-04] MEDS: LACTATED RINGER'S SOLUTION 1,000 ML 50 ML IV (08:12)
[2023-07-04 10:09] VITALS: BP 95/52; PULSE 62; RESP 16; TEMP 36.5; O2SAT 96
[2023-07-04 10:42] VITALS: BP 116/77; PULSE 68; RESP 16; O2SAT 95
== END 2023-07-04 10:39 | disposition home or self-care (01) ==
PROVIDERS: PCP Family Medicine; Visit Provider Surgery
PROC: (CPT 45380; principal; 2023-07-04 08:45)
DX: R19.7 Diarrhea, unspecified (principal); R19.4 Change in bowel habit; K57.30 Diverticulosis of large intestine without perforation or abscess without bleeding; Q43.8 Other specified congenital malformations of intestine; J44.9 Chronic obstructive pulmonary disease, unspecified; F32.A Depression, unspecified; F41.1 Generalized anxiety disorder; K21.9 Gastro-esophageal reflux disease without esophagitis; E03.9 Hypothyroidism, unspecified; G47.33 Obstructive sleep apnea (adult) (pediatric); E66.01 Morbid (severe) obesity due to excess calories; Z68.42 Body mass index [BMI] 45.0-49.9, adult; N18.30 Chronic kidney disease, stage 3 unspecified; E11.22 Type 2 diabetes mellitus with diabetic chronic kidney disease; M47.817 Spondylosis without myelopathy or radiculopathy, lumbosacral region; Z90.49 Acquired absence of other specified parts of digestive tract; Z90.710 Acquired absence of both cervix and uterus; Z79.82 Long term (current) use of aspirin; Z79.85 Long-term (current) use of injectable non-insulin antidiabetic drugs; I50.32 Chronic diastolic (congestive) heart failure; I13.0 Hypertensive heart and chronic kidney disease with heart failure and stage 1 through stage 4 chronic kidney disease, or unspecified chronic kidney disease
CPT/HCPCS: 45380; 36415; 82948; 88305; J2704

== ENCOUNTER 2023-11-21 08:23 | Outpatient (OUT) | payer MEDICARE, SELFPAY ==
--- OUTSIDE RECORDS SUMMARY | 2023-11-21 08:48 | XMS_ITS | CCD ---
Author Organization [facility] Care Team Providers Care Backfiller Name Role Phone ELADIO XAVIER Unavailable Unavailable NADERER, PATRICK CAPELLAN Unavailable Unavailabl e GEREMIAS, STANLEY Unavailable Unavailable KAHEMALATHA, AMEER Unavailable Unavailable MO, CAMILLE S Unavailable Unavailable MORENITA, ELADIO Trinidad Unavailable Unavailable NADEREAce, PATRICK CAPELLAN Unavailable Unavailabl e Nadereace, Patrick Lopez Primary Care Provider Naderer, Patrick Lopez Primary Care Provider EMILY, DEREK Admitting Unavailable EMILY, DEREK Attending Unavailable UNKNOWN, PHYSICIAN Referring Unavailable NADERER, PATRICK Primary Care Unavailable NANO, DR LINH [...] Unavailable NADERER, DR PATRICK Lopez Admitting Unavailable WEST, DR MEGAN Abrams Consulting Unavailable NADERER, DR PATRICK Lopez Attending Unavailable NADERER, DR PATRICK Lopez Primary Care Unavailable NADERER, DR PATRICK Lopez Consulting Unavailable NADERER, DR PATRICK Lopez Admitting Unavailable NADERER, DR PATRICK Lopez Attending Unavailable NADERER, DR PATRICK Lopez Consulting Unavailable NADERER, DR PATRICK Lopez Primary Care Unavailable NADERER, DR PATRICK Lopez Primary Care Unavailable MOUKARBELKIRILL Admitting Unavailable MOUKARBEL, KIRILL Attending Unavailable MOUKARBEL, KIRILL Consulting Unavailable NADERER, DR PATRICK Lopez Primary Care Unavailable NADERER, DR PATRICK Lopez Admitting Unavailable NADERER, DR PATRICK Lopez Attending Unavailable NADERER, DR PATRICK Lopez Consulting Unavailable MOUKARBELKIRILL Admitting Unavailable NADERER, DR PATRICK Lopez Primary Care Unavailable MOUKARBEL, KIRILL Attending Unavailable MOUKARBEL, KIRILL Consulting Unavailable NADERER, PATRICK Primary Care Physician [phone] PATRICK MANCILLA Referring Unavailable Cuba GREENE Attending Unavailable Cuba GREENE Attending Unavailable Cuba GREENE Attending Unavailable BEATA CUMMINS Attending Unavailable KIRILL HOPKINS Attending Unavailable Allergies Allergy Classification Reported Allergen(s) Allergy Type Date of Onset Reaction(s) Facility (5 sources) Povidone-Iodine; Translations: [povidone iodine topical] Drug Allergy 9 Eruption of skin (disorder) [facility] (1 source) Povidone-Iodine Drug Allergy 3 [facility] Repository (2 sources) Povidone-Iodine; Translations: [Betadine] Drug Allergy 3 [facility] Repository (1 source) Povidone-Iodine; Translations: [POVIDONE-IODINE ] Drug Allergy 8 [facility] Repository Medications Current Medications Medication Drug [...] Ordered Start: 01-23-2019 take 1 capsule by [facility] twice daily celecoxib 200 MG [...] take 2 tablets by mouth once daily [place]-3 Fatty Acids (Fish Oil) 1000 MG capsule [...] sources) Corticosteroid Start: 05-30-2023 Flonase 0.05 mg/inh Fitzhugh 100 mcg, Nasal, Daily, Refill(s) 0 Start [...] 1700, Until Discontinued take 1 tablet by krystle th twice daily furOSEmide 40 MG Tab [...] premature depolarization; Translations: [Atrial premature depolarization] Onset: 08-17-2023 Chronic Chronic kidney disease (1 source) Chronic kidney disease stage 3 05-30-2023 Chronic Chronic kidney disease (1 source) Chronic kidney disease; Translations: [CHRONIC KIDNEY DISEASE STAGE 3A] Onset: 04-06-2022 Chronic obstructive pulmonary disease and bronchiectasis (2 sources) Chronic obstructive pulmonary disease, unspecified; Translations: [Chronic obstructive lung disease] Onset: 03-09-2022 05-30-2023 Chronic Congestive heart failure; nonhypertensive (3 sources) Chronic diastolic heart failure; Translations: [Chronic diastolic (congestive) heart failure] Onset: 06-15-2022 05-30-2023 Chronic Diabetes mellitus with complications (6 [...] Essential hypertension (8 sources) Benign hypertension; Translations: [Hypertensive disorder] Onset: 02-10-2019 02-10-2019 Chronic Hypertension with complications [...] diarrhea; Translations: [Nausea vomiting and diarrhea] Episodic Nonspecific chest pain (15 sources) Chest pain, unspecified; Translations: [Chest pain] Onset: 12-14-2017 02-10-2019 Episodic Other gastrointestinal disorders (2 sources) Altered bowel function; Translations: [Change in bowel habit] Onset: 06-20-2023 Episodic Other lower respiratory disease (7 sources) Shortness of breath; Translations: [SHORTNESS OF BREATH] Onset: 03-09-2022 Episodic Other lower respiratory disease (1 source) [...] apnea syndrome 05-30-2023 Chronic Residual codes; unclassified (3 sources) Localized edema; Translations: [LOCALIZED EDEMA] Onset: 06-15-2022 Episodic Residual codes; unclassified (1 source) Insomnia 05-30-2023 [...] Classification Problem Date Documented Da te Episodic/Chronic Other aftercare (1 source) 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; Translations: [OTH HALFWAY CURRENT DRUG THERAPY] Onset: 04-06-2022 Episodic Other aftercare (1 source) 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; Translations: [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] Onset: 03-09-2022 Episodic Other screening for suspected conditions (not mental disorders or infectious disease) (4 sources) Encounter for screening mammogram for malignant neoplasm of breast; Translations: [ENC SCR MAMMO MALIG NEOPLASM BREAST] Onset: 11-08-2021 Episodic Residual codes; unclassified (1 source) Acquired [...] Results Test Name Value Interpretation Reference Range Facility Office Visiton 08-17-2023 Follow-up visit [id number] Alyce Torres 1955 F Date Provider Department Center 08/17/2023 Claire-KIRILL HOPKINS CARD [facility] Family History Problem Relation Age of Onset Coronary artery disease Mother Coronary artery disease Father Family Status - Relation Status Age at Mother Father Level of Service:62123 [place] OFFICE/OUTPATIENT ESTABLISHED LOW MDM 20 MIN Normal [facility] Ambulatory Visit Summaryon 0 07-18-2023 Ambulatory Visit Summary ALYCE TORRES :1955 Visit Date:07/18/2023 Ambulatory Visit Instructions Your Diagnosis Diverticulosis Your Care Team Attending Physician - JC ARAMBULA, Cuba Bello Primary Care Physician - LAURENT ARAMBULA, PATRICK This Is Your Medications List Contact prescribing physician if questions or concerns NIFEdipine (Procardia 60 mg Tab-ER) albuterol (ProAir HFA) albuterol (albuterol 0.083% Inh Sheri 3 mL) aspirin (aspirin 81 mg Oral EC Tab) atropine-diphenoxylate (Lomotil 0.025 mg-2.5 mg Tab) budesonide-formoterol (Symbicort 160/4.5 inhalation aerosol with adapter) celecoxib (CeleBREX 200 mg Cap) cetirizine (cetirizine 10 mg Tab) cyclobenzaprine (cyclobenzaprine 10 mg Tab) dulaglutide (Trulicity Pen 1.5 mg/0.5 mL subcutaneous solution) fluticasone nasal (Flonase 0.05 mg/inh Fitzhugh) furosemide (Lasix 40 mg Tab) isosorbide mononitrate (isosorbide mononitrate 60 mg ER Tab) levothyroxine (Synthroid 125 mcg (0.125 mg) Tab) metoprolol (metoprolol 50 mg ER Tab) montelukast (Singulair 10 mg Tab) pantoprazole (Protonix 40 mg Tab-DR) rosuvastatin (Crestor 40 mg Tab) tiotropium (Spiriva 18 mcg Cap) tramadol (Ultram 50 mg Tab) venlafaxine (Effexor XR 150 mg Cap-ER) Procedures Performed Colonoscopy (07/04/2023), Colonoscopy (05/22/2011), EGD - esophagogastroduodenoscopy (05/15/2011), Sigmoidoscopy (05/15/2011), Abdominal hysterectomy, Arthroscopy of knee, Biopsy of breast, Cholecystectomy, Rotator cuff repair. Medications What How Much When Instructions Unchanged [...] Unchanged fluticasone nasal (Flonase 0.05 mg/ inh Fitzhugh) 100 Microgram Nasal Inhalation Every day Contact [...] Contact prescribing physician if questions or concerns Allergies Betadine (Rash) Problems Ongoing - Any problem that you are currently receiving treatment for. Asthma BMI 45.0-49.9, adult Change in bowel habits Chronic diastolic heart failure Chr (more content not included)... Normal [facility] General Surgery Office/Clini c Noteon 01-03-2024 General Surgery Office/Clinic Note Chief Complaint post operative follow up HPI Staff 14 day post operative follow up post colonoscopy with sigmoid and rectal biopsies. Diarrhea has improved but not resolved. History of Present Illness s/p colonoscopy with random biopsies due to loose stools; biopsies negative; no inflammation; patient denies abd pain or blood in stools; loose stools improving. Review of Systems ROS - Provider Constitutional: no fever, no [...] no wheezing. Gastrointestinal: no nausea, no vomiting, no diarrhea, no constipation, no blood in stool, [...] been reviewed and are negative or noncontributory. Assessment/Plan 1. Diverticulosis (K57.90: Diverticulosis of intestine, part unspecified, without perforation or abscess without bleeding) recommend high fiber diet and daily fiber supplement; f/u screening colonoscopy in 10 years, call sooner if problems/questions. Follow-up No qualifying data available Problem List/Past [...] Historical No qualifying data Procedure/Surgical History Colonoscopy (07/04/2023), Colonoscopy (05/22/2011), EGD - esophagogastroduodenoscopy (05/15/2011), Sigmoidoscopy (05/15/2011), Abdominal hysterectomy, Arthroscopy of knee, Biopsy of breast, Cholecystectomy, Rotator cuff repair. Medications albuterol 0.083% Inh Sheri 3 mL, 2.5 mg= 3 mL, NEB, QID, PRN aspirin 81 mg Oral EC Tab, 81 mg= 1 tab(s), Oral, Daily CeleBREX 200 mg Cap, 200 mg= 1 cap(s), Oral, BID cetirizine 10 mg Tab, 10 mg= 1 tab(s), Oral, Daily Crestor 40 mg Tab, 40 mg= 1 tab(s), Oral, Daily cyclobenzaprine 10 mg Tab, 10 mg= 1 tab(s), Oral, TID, PRN Effexor XR 150 mg Cap-ER, 150 mg= 1 cap(s), Oral, Daily Flonase 0.05 mg/inh Fitzhugh, 100 mcg, Nasal, Daily isosorbide mononitrate 60 mg ER Tab, 60 mg= 1 tab(s), Oral, qAM Lasix 40 mg Tab, 40 mg= 1 tab(s), Oral, BID Lomotil 0.025 mg-2.5 mg Tab, 1 tab(s), Oral, QID, PRN metoprolol 50 mg ER Tab, 50 mg= 1 tab(s), Oral, Daily ProAir HFA, 2 puff(s), Inhalation, q4hr, PRN Procardia 60 mg Tab-ER, 60 mg= 1 tab(s), Oral, Daily Protonix 40 mg Tab-DR, 40 mg= 1 tab(s), Oral, Daily Singulair 10 mg Tab, 10 mg= 1 tab(s), Oral, Daily Spiriva 18 mcg Cap, 18 mcg= 1 cap(s), Inhalation, Daily Symbicort 160/4.5 inhalation aerosol with adapter, 2 puff(s), Inhalation, BID Synthroid 125 mcg (0.125 mg) Tab, 125 mcg= 1 tab(s), Oral, Daily Trulicity Pen 1.5 mg/0.5 mL subcutaneous solution, 1.5 mg, SubCutaneous, qWeek Ultram 50 mg Tab, 50 mg= 1 tab(s), Oral, q4hr, PRN Allergies Betadine (Rash) Social History Alcohol - Denies Alcohol Use, 06/20/2023 Substance Abuse - Denies Substance Abuse, 06/20/2023 Tobacco Never (less than 100 in lifetime) Tobacco Use:. Never Smokeless Tobacco Use:., 06/20/2023 Family History COPD: Mother. Diabetes mellitus type 2: Sister and Brother. Heart disease: Mother. Primary malignant neoplasm of lung: Father. Immunizations Vaccine Date Status Comments influenza virus vaccine, inactivated - Not Given Patient Refuses [facility] Comment on above: Result Comment: Elec tronically Signed By: JC ARAMBULA, Cuba Govea\Date and Time Signed: 07/18/23 14:41 EST Reminderson 07-18-2023 Reminders - From: Hailey Casas LPN To: N - Clinical; Sent: 07/18/2023 14:47:56 EST Show up: 06/04/2033 07:00:00 EST Subject: colonoscopy recall Due Date/Time: 07/04/2033 07:00:00 EST Reminder/Recall Patient due for screening colonoscopy 07/04/2033. [facility] Pathology Noteon 07-12-2023 Pathology Note [id number]#1.00TIFF [facility] Outside Colonoscopyon 2022 Outside Colonoscopy [id number]#1.00TIFF [facility] Lab Reportson 07-04-2023 Lab Reports [id number]#1.00TIFF [facility] Consent for Procedure/Surger yon 06-22-2023 Consent for Procedure/Surgery [id number]#1.00TIFF [facility] Facesheeton 06-21-2023 Facesheet [id number]#1.00TIFF Normal [facility] Ambulatory Visit Summaryon 1 08-21-2022 [...] albuterol (ProAir HFA) albuterol (albuterol 0.083% Inh Sheri 3 mL) aspirin (aspirin 81 mg Oral EC Tab) atropine-diphenoxylate (Lomotil 0.025 mg-2.5 mg Tab) budesonide-formoterol (Symbicort 160/4.5 inhalation aerosol with adapter) celecoxib (CeleBREX 200 mg Cap) cetirizine (cetirizine 10 mg Tab) cyclobenzaprine (cyclobenzaprine 10 mg Tab) dulaglutide (Trulicity Pen 1.5 mg/0.5 mL subcutaneous solution) fluticasone nasal (Flonase 0.05 mg/inh Fitzhugh) furosemide (Lasix 40 mg Tab) isosorbide mononitrate [...] Unchanged fluticasone nasal (Flonase 0.05 mg/ inh Fitzhugh) 100 Microgram Nasal Inhalation Every day Contact [...] Immunizations Admi (more content not included)... Normal [facility] Insurance Correspondenceon 1 08-21-2022 Insurance Correspondence [id number]#1.00TIFF [facility] Insurance Correspondence [id number]#1.00TIFF [facility] Physician Referralon 023 Physician Referral [id number]#1.00TIFF [facility] Office Visiton 11-06-2022 Follow-up visit [id number] Alyce Torres 1955 F Date Provider Department Center 11/06/2022 [id number] CUMMINS [facility] Family History Problem Relation Age of Onset Coronary artery disease Mother Coronary artery disease Father Family Status - Relation Status Age at Mother Father Level of Service:95836 NC OFFICE/OUTPATIENT ESTABLISHED MOD MDM 30-39 MIN Normal [facility] GLYCOHEMOGLOBIN A1Con 2022 ADA RECOMMENDATION SEE BELOW Normal [facility] Comment on above: Result Comment: ADA RECOMMENDED LIMIT 4.0 - 6.0 ADA THERAPEUTIC TARGET < 7.0 ACTION SUGGESTED > 7.0 Performed By: #### M ALB #### [facility] [address] [address] [address] Chrissy Schmidt Glucose [Mass/Vol] 117 mg/dL Normal [facility] Comment on above: Performed By: #### M ALBLC #### [facility] [address] [place], [place] [address] Dr. Chrissy Schmidt HbA1c (Bld) [Mass fraction] 5.7 % Normal 4.5-6.2 [facility] Comment on above: Performed By: #### M ALBLC #### [facility] [address] [address] [address] Chrissy Schmidt LIPID PROFILEon 09-29-2022 CHOL-HDL RATIO NORM SEE BELOW Normal [facility] Comment on above: Result Comment: 3.3 - 4.4 LOW RISK 4.4 - 7.1 AVERAGE RISK 7.1 - 11.0 MODERATE RISK >11.0 HIGH RISK Performed By: #### L IPID ####[facility] [address] [address]Dr. Chrissy Schmidt Cholesterol [Mass/Vol] 101 mg/dL Normal <=200 [facility] Comment on above: Performed By: #### L IPID ####[facility] [address] [address]DrМария Schmidt Cholesterol in HDL [Mass/Vol] 45 mg/dL Normal 40-60 [facility] Comment on above: Performed By: #### L IPID ####[facility] [address] [address]DrМария Schmidt Cholesterol in LDL [Mass/Vol] 37.0 mg/dL Normal [facility] Comment on above: Performed By: #### L IPID ####[facility] [address] [address]Dr. Chrissy Schmidt Cholesterol.total/ Cholesterol in HDL [Mass ratio] 2.2 {ratio} Normal [facility] Comment on above: Performed By: #### L IPID ####[facility] [address] [address]Dr. Chrissy Schmidt HDL NORMAL > or = 60 mg/dl - LO W CARDIOVASCULAR RISK <40 mg/dl - HIGH CARDIOVASCULAR RISK Normal [facility] Comment on above: Performed By: #### L IPID ####[facility] [address] [place], [place] [address]Ov. Chrissy Schmidt LDL CALC NORMAL SEE BELOW Normal [facility] Comment on above: Result Comment: <100 mg/dl OPTIMAL 100 - 129 mg/dl NEAR OR ABOVE OPTIMAL 130 - 159 mg/dl BORDERLINE HIGH 160 - 189 mg/dl HIGH >190 mg/dl VERY HIGH Performed By: #### L IPID ####[facility] [address] [place], [place] [address]Em. Chrissy Schmidt Triglyceride [Mass/Vol] 95 mg/dL Normal <=150 [facility] Comment on above: Performed By: #### L IPID ####[facility] [address] [place], [place] [address]Dx. Chrissy Schmidt VLDL CALC 19.0 mg/dL Normal [facility] Comment on above: Performed By: #### L IPID ####[facility] [address] [place], [place] [address]Nd. Chrissy Schmidt ECHOCARDIO M/2D COMPLETEon 0 07-19-2022 ECHOCARDIO M/2D COMPLETE Patient: ALYCE TORRES Exam Date: 07/19/2022 : 1955 Gender:F Ordering : DR KIRILL HOPKINS M.D. Admission #: [id number] Family : Order #: [id number] CLICK HERE TO VIEW EXAM ECHOCARDIOGRAM REPORT [...] Bloom M.D. on 07/21/2022 at 17:44 Normal [facility] MICROALBUMIN URINEon 022 Albumin, Urine 19.2 ug/mL Normal Not Estab. [facility] Comment on above: Performed By: #### M ALBLC #### [facility] [address] [place], [place] [address] Dr. Chrissy Schmidt CBC AUTO DIFFon 04-05-2022 BASO # 0.1 103/ul Normal 0.0-0.1 [facility] Comment on above: Performed By: #### C BC ####[facility] [address] [address]DrМария Schmidt Basophils/100 WBC (Bld) 1.0 % Normal 0.2-2.0 [facility] Comment on above: Performed By: #### C BC ####[facility] [address] [address]DrМария Schmidt EO # 0.2 103/ul Normal 0.0-0.7 [facility] Comment on above: Performed By: #### C BC ####[facility] [address] [address]Dr. Chrissy Schmidt Eosinophils/100 WBC (Bld) 2.3 % Normal 0.9-7.0 [facility] Comment on above: Performed By: #### C BC ####[facility] [address] [address]DrМария Schmidt Erythrocyte distribution width (RBC) [Ratio] 15.3 % Critically high 11.0-15.0 [facility] Comment on above: Performed By: #### C BC ####[facility] [address] [address]DrМария Schmidt Hematocrit (Bld) [Volume fraction] 48.6 % Critically high 36.0-48.0 [facility] Comment on above: Performed By: #### C BC ####[facility] [address] [id number]. Chrissy Schmidt Hemoglobin (Bld) [Mass/Vol] 15.2 g/dL Normal 12.0-16.0 [facility] Comment on above: Performed By: #### C BC ####[facility] [address] [place] [address]Dr. Chrissy Schmidt IG # 0.02 10e3/ul Normal 0.00-0.03 [facility] Comment on above: Performed By: #### C BC ####[facility] [address] [place] [address]Dr. Chrissy Schmidt IG % 0.2 % Normal 0.0-0.5 [facility] Comment on above: Performed By: #### C BC ####[facility] [address] [place] [address]Dr. Chrissy Schmidt LYMPH # 1.6 103/ul Normal 1.2-3.8 [facility] Comment on above: Performed By: #### C BC ####[facility] [address] [place], [place] [address]Dr. Chrissy Schmidt Lymphocytes/100 WBC (Bld) 17.0 % Critically low 20.5-60.0 [facility] Comment on above: Performed By: #### C BC ####[facility] [address] [address]Dr. Chrissy Schmidt MANUAL DIFF REQ NO Normal [facility] Comment on above: Performed By: #### C BC ####[facility] [address] [id number]. Chrissy Schmidt MCH (RBC) [Entitic mass] 27.2 pg Normal 26.7-34.0 [facility] Comment on above: Performed By: #### C BC ####[facility] [address] [place], [place] [address]Dr. Chrissy Schmidt MCHC (RBC) [Mass/Vol] 31.3 g/dL Normal 29.9-35.2 [facility] Comment on above: Performed By: #### C BC ####[facility] [address] [place], [place] [address]Dr. Chrissy Brayan MCV (RBC) [Entitic vol] 86.9 fL Normal 81.0-99.0 [facility] Comment on above: Performed By: #### C BC ####[facility] [address] [address]Dr. Chrissy Schmidt MONO # 0.8 103/ul Normal 0.3-0.8 [facility] Comment on above: Performed By: #### C BC ####[facility] [address] [place], [place] [address]Dr. Chrissy Schmidt Monocytes/100 WBC (Bld) 8.2 % Normal 1.7-12.0 [facility] Comment on above: Performed By: #### C BC ####[facility] [address] [place], [place] [address]Dr. Negarcandi Brayan NEUT # 6.5 103/ul Normal 1.4-6.5 [facility] Comment on above: Performed By: #### C BC ####[facility] [address] [place], [place] [address]Dr. Negarcandi Schmidt Neutrophils/100 WBC (Bld) 71.3 % Normal 43.0-75.0 [facility] Comment on above: Performed By: #### C BC ####[facility] [address] [place], [place] [address]Dr. Chrissy Schmidt Platelet mean volume (Bld) [Entitic vol] 13.9 fL Critically high 9.5-13.5 [facility] Comment on above: Performed By: #### C BC ####[facility] [address] [place], [place] [address]Dr. Chrissy Schmidt PLT 270 103/ul Normal 150-450 [facility] Comment on above: Performed By: #### C BC ####[facility] [address] [id number]. Negarcandi Brayan RBC 5.59 106/ul Critically high 4.20-5.40 [facility] Comment on above: Performed By: #### C BC ####[facility] [address] [place], [place] [address]Dr. Chrissy Schmidt WBC 9.2 103/ul Normal 4.0-11.0 [facility] Comment on above: Performed By: #### C BC ####[facility] [address] [place], [place] [address]Dr. Chrissy Schmidt FREE T3on 04-05-2022 FREE T3 2.72 pg/mlL Normal 2.18-3.98 [facility] Comment on above: Performed By: #### B MP, TSH, FT3, LIVER, LIPID ####[facility] [address] [place], [place] [address]Dr. Chrissy Schmidt FREE T4on 04-05-2022 Free T4 [Mass/Vol] 0.88 ng/dL Normal 0.76-1.46 The [facility] Comment on above: Performed By: #### F T4, VITAD ####[facility] [address] [place], [place] [address]Dr. Chrissy Schmidt GLYCOHEMOGLOBIN A1Con 2021 ADA RECOMMENDATION SEE BELOW Normal The [facility] Comment on above: Result Comment: ADA RECOMMENDED LIMIT 4.0 - 6.0 ADA THERAPEUTIC TARGET < 7.0 ACTION SUGGESTED > 7.0 Performed By: #### A 1C ####[facility] [address] [place], [place] [address]Dr. Chrissy Schmidt Glucose [Mass/Vol] 131 mg/dL Normal The [facility] Comment on above: Performed By: #### A 1C ####[facility] [address] [place], [place] [address]Dr. Chrissy Schmidt HbA1c (Bld) [Mass fraction] 6.2 % Normal 4.5-6.2 [facility] Comment on above: Performed By: #### A 1C ####[facility] [address] [place], [place] [address]Dr. Chrissy Schmidt LIPID PROFILEon 04-05-2022 CHOL-HDL RATIO NORM SEE BELOW Normal [facility] Comment on above: Result Comment: 3.3 - 4.4 LOW RISK 4.4 - 7.1 AVERAGE RISK 7.1 - 11.0 MODERATE RISK >11.0 HIGH RISK Performed By: #### B MP, TSH, FT3, LIVER, LIPID #### [facility] [address] [address] [address] Chrissy Schmidt Cholesterol [Mass/Vol] 220 mg/dL Critically high <=200 [facility] Comment on above: Performed By: #### B MP, TSH, FT3, LIVER, LIPID #### [facility] [address] [address] [address] Chrissy Schmidt Cholesterol in HDL [Mass/Vol] 44 mg/dL Normal 40-60 [facility] Comment on above: Performed By: #### B MP, TSH, FT3, LIVER, LIPID #### [facility] [facility] [address] [address] [address] Chrissy Schmidt Cholesterol in LDL [Mass/Vol] 141.6 mg/dL Normal [facility] Comment on above: Performed By: #### B MP, TSH, FT3, LIVER, LIPID #### [facility] [address] [address] [address] Chrissy Schmidt Cholesterol.total/ Cholesterol in HDL [Mass ratio] 5.0 {ratio} Normal [facility] Comment on above: Performed By: #### B MP, TSH, FT3, LIVER, LIPID #### [facility] [address] [address] [address] Chrissy Schmidt HDL NORMAL > or = 60 mg/dl - LO W CARDIOVASCULAR RISK <40 mg/dl - HIGH CARDIOVASCULAR RISK Normal [facility] Comment on above: Performed By: #### B MP, TSH, FT3, LIVER, LIPID #### [facility] [address] [address] [address] Chrissy Schmidt LDL CALC NORMAL SEE BELOW Normal [facility] Comment on above: Result Comment: <100 mg/dl OPTIMAL 100 - 129 mg/dl NEAR OR ABOVE OPTIMAL 130 - 159 mg/dl BORDERLINE HIGH 160 - 189 mg/dl HIGH >190 mg/dl VERY HIGH Performed By: #### B MP, TSH, FT3, LIVER, LIPID #### [facility] [address] [address] [address] Chrissy Schmidt Triglyceride [Mass/Vol] 172 mg/dL Critically high <=150 [facility] Comment on above: Performed By: #### B MP, TSH, FT3, LIVER, LIPID #### [facility] [address] [address] [address] Chrissy Schmidt VLDL CALC 34.4 mg/dL Normal [facility] Comment on above: Performed By: #### B MP, TSH, FT3, LIVER, LIPID #### [facility] [address] [address] [address] Chrissy Schmidt LIVER PROFILEon 04-05-2022 Albumin [Mass/Vol] 3.8 g/dL Normal 3.4-5.0 [facility] Comment on above: Performed By: #### B MP, TSH, FT3, LIVER, LIPID #### [facility] [address] [place] [address] Dr. Chrissy Schmidt Albumin/Globulin [Mass ratio] 0.9 {ratio} Normal [facility] Comment on above: Performed By: #### B MP, TSH, FT3, LIVER, LIPID #### [facility] [address] [place] [address] Dr. Chrissy Schmidt ALP [Catalytic activity/Vol] 152 U/L Critically high 46-116 [facility] Comment on above: Performed By: #### B MP, TSH, FT3, LIVER, LIPID #### [facility] [address] [place] [address] Dr. Chrissy Schmidt ALT [Catalytic activity/Vol] 27 U/L Normal 14-59 [facility] Comment on above: Performed By: #### B MP, TSH, FT3, LIVER, LIPID #### [facility] [address] [place] [address] Dr. Chrissy Schmidt AST [Catalytic activity/Vol] 17 U/L Normal 15-37 [facility] Comment on above: Performed By: #### B MP, TSH, FT3, LIVER, LIPID #### [facility] [address] [place] [address] Dr. Chrissy Schmidt BILI, CONJUGATED 0.1 mg/dL Normal 0.0-0.2 [facility] Comment on above: Performed By: #### B MP, TSH, FT3, LIVER, LIPID #### [facility] [address] [place] [address] Dr. Chrissy Schmidt Bilirubin [Mass/Vol] 0.6 mg/dL Normal 0.2-1.0 [facility] Comment on above: Performed By: #### B MP, TSH, FT3, LIVER, LIPID #### [facility] [address] [place] [address] Dr. hCrissy Schmidt Globulin (S) [Mass/Vol] 4.2 g/dL Normal [facility] Comment on above: Performed By: #### B MP, TSH, FT3, LIVER, LIPID #### [facility] [address] [place] [address] Dr. Chrissy Schmidt Protein [Mass/Vol] 8.0 g/dL Normal 6.4-8.2 The [facility] Comment on above: Performed By: #### B MP, TSH, FT3, LIVER, LIPID #### [facility] [address] [place] [address] Dr. Chrissy Schmidt PROF CHEM 8 (BAS METB)on Anion gap [Moles/Vol] 7.2 mmol/L Normal [facility] Comment on above: Performed By: #### B MP, TSH, FT3, LIVER, LIPID #### [facility] [address] [place] [address] Dr. Chrissy Schmidt Calcium [Mass/Vol] 9.1 mg/dL Normal 8.5-10.1 The [facility] Comment on above: Performed By: #### B MP, TSH, FT3, LIVER, LIPID #### [facility] [address] [place] [address] Dr. Chrissy Schmidt Chloride [Moles/Vol] 100 mmol/L Normal 98-107 [facility] Comment on above: Performed By: #### B MP, TSH, FT3, LIVER, LIPID #### [facility] [address] [place] [address] Dr. Chrissy Schmidt CO2 [Moles/Vol] 34.7 mmol/L Critically high 21.0-32.0 [facility] Comment on above: Performed By: #### B MP, TSH, FT3, LIVER, LIPID #### [facility] [address] [place] [address] Dr. Chrissy Schmidt Creatinine [Mass/Vol] 1.23 mg/dL Critically high 0.55-1.02 [facility] Comment on above: Performed By: #### B MP, TSH, FT3, LIVER, LIPID #### [facility] [address] [place] [address] Dr. Chrissy Schmidt EGFR-AF GUYANESE 53 mL/min/1.73m2 Critically low >=60 [facility] Comment on above: Performed By: #### B MP, TSH, FT3, LIVER, LIPID #### [facility] [address] [place] [address] Dr. Chrissy Schmidt EGFR-NON AF GUYANESE 44 mL/min/1.73m2 Critically low >=60 [facility] Comment on above: Performed By: #### B MP, TSH, FT3, LIVER, LIPID #### [facility] [address] [place] [address] Dr. Chrissy Schmidt Glucose [Mass/Vol] 178 mg/dL Critically high 74-106 [facility] Comment on above: Performed By: #### B MP, TSH, FT3, LIVER, LIPID #### [facility] [address] [place] [address] Dr. Chrissy Schmidt Potassium [Moles/Vol] 3.9 mmol/L Normal 3.5-5.1 [facility] Comment on above: Performed By: #### B MP, TSH, FT3, LIVER, LIPID #### [facility] [address] [place] [address] Dr. Chrissy Schmidt Sodium [Moles/Vol] 138 mmol/L Normal 136-145 [facility] Comment on above: Performed By: #### B MP, TSH, FT3, LIVER, LIPID #### [facility] [address] [place] [address] Dr. Chrissy Schmidt Urea nitrogen [Mass/Vol] 14.0 mg/dL Normal 7.0-18.0 [facility] Comment on above: Performed By: #### B MP, TSH, FT3, LIVER, LIPID #### [facility] [address] [address] [address] Chrissy Schmidt Urea nitrogen/Creatinin e [Mass ratio] 11.4 mg/mg Normal [facility] Comment on above: Performed By: #### B MP, TSH, FT3, LIVER, LIPID #### [facility] [address] [address] [address] Chrissy Schmidt TSHon 04-05-2022 TSH 9.692 uIU/mL Critically high 0.358-3.740 [facility] Comment on above: Performed By: #### B MP, TSH, FT3, LIVER, LIPID ####[facility] [address] [address]DrМария Schmidt VITAMIN D 25 OHon 04-05-2022 VIT D 25-OH 40.4 ng/mL Normal [facility] Comment on above: Performed By: #### F T4, VITAD ####[facility] [address] [address]DrМария Schmidt VIT D RANGES SEE BELOW Normal [facility] Comment on above: Result Comment: <20 ng/mL Vit D deficient 20 - <30 ng/mL Vit D insufficient 30 - 100 ng/mL Vit D sufficient >100 ng/mL Potential Toxicity Performed By: #### F T4, VITAD ####[facility] [address] [address]DrМария Schmidt BNPon 03-08-2022 Natriuretic peptide B (Bld) [Mass/Vol] 47.0 pg/mL Normal <=900.0 [facility] Comment on above: Performed By: #### B DIGITAL X RAY SERVICE ENGINEER, HSTROPN, CMP #### [facility] [address] [address] [address] Chrissy Schmidt CBC AUTO DIFFon 03-08-2022 BASO # 0.1 103/ul Normal 0.0-0.1 [facility] Comment on above: Performed By: #### C BC ####[facility] [address] [address]DrМария Schmidt Basophils/100 WBC (Bld) 1.4 % Normal 0.2-2.0 [facility] Comment on above: Performed By: #### C BC ####[facility] [address] [place], [place] [address]Dr. Chrissy Schmidt EO # 0.3 103/ul Normal 0.0-0.7 [facility] Comment on above: Performed By: #### C BC ####[facility] [address] [place], [place] [address]Dr. Chrissy Schmidt Eosinophils/100 WBC (Bld) 4.9 % Normal 0.9-7.0 [facility] Comment on above: Performed By: #### C BC ####[facility] [address] [place], [place] [address]Dr. Chrissy Schmidt Erythrocyte distribution width (RBC) [Ratio] 15.4 % Critically high 11.0-15.0 [facility] Comment on above: Performed By: #### C BC ####[facility] [address] [place], [place] [address]Dr. Chrissy Schmidt Hematocrit (Bld) [Volume fraction] 47.4 % Normal 36.0-48.0 [facility] Comment on above: Performed By: #### C BC ####[facility] [address] [place], [place] [address]Dr. Chrissy Schmidt Hemoglobin (Bld) [Mass/Vol] 15.1 g/dL Normal 12.0-16.0 [facility] Comment on above: Performed By: #### C BC ####[facility] [address] [place], [place] [address]Dr. Chrissy Schmidt IG # 0.01 10e3/ul Normal 0.00-0.03 [facility] Comment on above: Performed By: #### C BC ####[facility] [address] [place], [place] [address]Dr. Chrissy Schmidt IG % 0.1 % Normal 0.0-0.5 [facility] Comment on above: Performed By: #### C BC ####[facility] [address] [place], [place] [address]DrМария Schmidt LYMPH # 1.7 103/ul Normal 1.2-3.8 [facility] Comment on above: Performed By: #### C BC ####[facility] [address] [id number] Schmidt Lymphocytes/100 WBC (Bld) 23.9 % Normal 20.5-60.0 [facility] Comment on above: Performed By: #### C BC ####[facility] [address] [address]DrМария Schmidt MANUAL DIFF REQ NO Normal [facility] Comment on above: Performed By: #### C BC ####[facility] [address] [address]DrМария Schmidt MCH (RBC) [Entitic mass] 27.1 pg Normal 26.7-34.0 [facility] Comment on above: Performed By: #### C BC ####[facility] [address] [place], [place] [address]DrМария Schmidt MCHC (RBC) [Mass/Vol] 31.9 g/dL Normal 29.9-35.2 [facility] Comment on above: Performed By: #### C BC ####[facility] [address] [place], [place] [address]DrМария Schmidt MCV (RBC) [Entitic vol] 85.1 fL Normal 81.0-99.0 [facility] Comment on above: Performed By: #### C BC ####[facility] [address] [place], [place] [address]DrМария Schmidt MONO # 0.5 103/ul Normal 0.3-0.8 [facility] Comment on above: Performed By: #### C BC ####[facility] [address] [place], [place] [address]DrМария Schmidt Monocytes/100 WBC (Bld) 7.5 % Normal 1.7-12.0 [facility] Comment on above: Performed By: #### C BC ####[facility] [address] [place], [place] [address]DrМария Schmidt NEUT # 4.3 103/ul Normal 1.4-6.5 [facility] Comment on above: Performed By: #### C BC ####[facility] [address] [id number]. Chrissy Schmidt Neutrophils/100 WBC (Bld) 62.2 % Normal 43.0-75.0 [facility] Comment on above: Performed By: #### C BC ####[facility] [address] [id number]. Chrissy Schmidt Platelet mean volume (Bld) [Entitic vol] 13.3 fL Normal 9.5-13.5 [facility] Comment on above: Performed By: #### C BC ####[facility] [address] [id number]. Chrissy Schmidt PLT 251 103/ul Normal 150-450 [facility] Comment on above: Performed By: #### C BC ####[facility] [address] [address]Dr. Chrissy Schmidt RBC 5.57 106/ul Critically high 4.20-5.40 The [facility] Comment on above: Performed By: #### C BC ####[facility] [address] [id number]. Chrissy Schmidt WBC 6.9 103/ul Normal 4.0-11.0 [facility] Comment on above: Performed By: #### C BC ####[facility] [address] [place], [place] [address]Dr. Chrissy Schmidt [facility] SARS-CoV-2 (COVID-19) RNA DAVIN+probe Ql (Unsp spec) Not detected Normal NOT DETECTED [facility] Comment on above: Result Comment: When diagnostic [...] for this test is supported by the Manager [employer] of [employer] and Human Service's declaration that [...] used). Performed By: #### C VDTBH #### [facility] [address] [place] [address] Dr. Chrissy Schmidt PROF 14(COMP METB)on 022 Albumin [Mass/Vol] 4.0 g/dL Normal 3.4-5.0 [facility] Comment on above: Performed By: #### B DIGITAL X RAY SERVICE ENGINEER, HSTROPN, CMP #### [facility] [address] [place] [address] Dr. Chrissy Schmidt Albumin/Globulin [Mass ratio] 1.0 {ratio} Normal [facility] Comment on above: Performed By: #### B DIGITAL X RAY SERVICE ENGINEER, HSTROPN, CMP #### [facility] [address] [place] [address] Dr. Chrissy Schmidt ALP [Catalytic activity/Vol] 172 U/L Critically high 46-116 [facility] Comment on above: Performed By: #### B DIGITAL X RAY SERVICE ENGINEER, HSTROPN, CMP #### [facility] [address] [place] [address] Dr. Chrissy Schmidt ALT [Catalytic activity/Vol] 36 U/L Normal 14-59 [facility] Comment on above: Performed By: #### B DIGITAL X RAY SERVICE ENGINEER, HSTROPN, CMP #### [facility] [address] [place] [address] Dr. Chrissy Schmidt Anion gap [Moles/Vol] 13.4 mmol/L Normal [facility] Comment on above: Performed By: #### B DIGITAL X RAY SERVICE ENGINEER, HSTROPN, CMP #### [facility] [address] [place] [address] Dr. Chrissy Schmidt AST [Catalytic activity/Vol] 21 U/L Normal 15-37 [facility] Comment on above: Performed By: #### B DIGITAL X RAY SERVICE ENGINEER, HSTROPN, CMP #### [facility] [address] [place] [address] Dr. Chrissy Schmidt Bilirubin [Mass/Vol] 0.6 mg/dL Normal 0.2-1.0 [facility] Comment on above: Performed By: #### B DIGITAL X RAY SERVICE ENGINEER, HSTROPN, CMP #### [facility] [address] [place] [address] Dr. Chrissy Schmidt Calcium [Mass/Vol] 9.3 mg/dL Normal 8.5-10.1 [facility] Comment on above: Performed By: #### B DIGITAL X RAY SERVICE ENGINEER, HSTROPN, CMP #### [facility] [address] [place] [address] Dr. Chrissy Schmidt Chloride [Moles/Vol] 101 mmol/L Normal 98-107 [facility] Comment on above: Performed By: #### B DIGITAL X RAY SERVICE ENGINEER, HSTROPN, CMP #### [facility] [address] [place] [address] Dr. Chrissy Schmidt CO2 [Moles/Vol] 26.5 mmol/L Normal 21.0-32.0 [facility] Comment on above: Performed By: #### B DIGITAL X RAY SERVICE ENGINEER, HSTROPN, CMP #### [facility] [address] [place] [address] Dr. Chrissy Schmidt Creatinine [Mass/Vol] 1.17 mg/dL Critically high 0.55-1.02 [facility] Comment on above: Performed By: #### B DIGITAL X RAY SERVICE ENGINEER, HSTROPN, CMP #### [facility] [address] [place] [address] Dr. Chrissy Schmidt EGFR-AF GUYANESE 56 mL/min/1.73m2 Critically low >=60 [facility] Comment on above: Performed By: #### B DIGITAL X RAY SERVICE ENGINEER, HSTROPN, CMP #### [facility] [address] [place] [address] Dr. Chrissy Schmidt EGFR-NON AF GUYANESE 47 mL/min/1.73m2 Critically low >=60 [facility] Comment on above: Performed By: #### B DIGITAL X RAY SERVICE ENGINEER, HSTROPN, CMP #### [facility] [address] [place] [address] Dr. Chrissy Schmidt Globulin (S) [Mass/Vol] 4.1 g/dL Normal [facility] Comment on above: Performed By: #### B DIGITAL X RAY SERVICE ENGINEER, HSTROPN, CMP #### [facility] [address] [place] [address] Dr. Chrissy Schmidt Glucose [Mass/Vol] 152 mg/dL Critically high 74-106 T [facility] Comment on above: Performed By: #### B DIGITAL X RAY SERVICE ENGINEER, HSTROPN, CMP #### [facility] [address] [place] [address] Dr. Chrissy Schmidt Potassium [Moles/Vol] 3.9 mmol/L Normal 3.5-5.1 [facility] Comment on above: Performed By: #### B DIGITAL X RAY SERVICE ENGINEER, HSTROPN, CMP #### [facility] [address] [place] [address] Dr. Chrissy Schmidt Protein [Mass/Vol] 8.1 g/dL Normal 6.4-8.2 The [facility] Comment on above: Performed By: #### B DIGITAL X RAY SERVICE ENGINEER, HSTROPN, CMP #### [facility] [address] [place] [address] Dr. Chrissy Schmidt Sodium [Moles/Vol] 137 mmol/L Normal 136-145 The [facility] Comment on above: Performed By: #### B DIGITAL X RAY SERVICE ENGINEER, HSTROPN, CMP #### [facility] [address] [place] [address] Dr. Chrissy Schmidt Urea nitrogen [Mass/Vol] 13.0 mg/dL Normal 7.0-18.0 [facility] Comment on above: Performed By: #### B DIGITAL X RAY SERVICE ENGINEER, HSTROPN, CMP #### [facility] [address] [place] [address] Dr. Chrissy Schmidt Urea nitrogen/Creatinin e [Mass ratio] 11.1 mg/mg Normal [facility] Comment on above: Performed By: #### B DIGITAL X RAY SERVICE ENGINEER, HSTROPN, CMP #### [facility] [address] [place], [place] [address] Dr. Chrissy Schmidt TROPONIN, HIGH SENSITIVITYon 03-08-2022 HSTROP 5.0 pg/mL Normal 4.0-51.3 [facility] Comment on above: Result Comment: CUT- OFF POINTS HAVE BEEN ESTABLISHED BASED ON THE FOURTH UNIVERSAL DEFINITIONS OF MYOCARDIAL INFARCTION. THE UPPER REFERENCE LIMIT (URL) OF TROPONIN, DEFINED THE 99TH PERCENTILE OF cTnI DISTRIBUTION IN A REFERENCE POPULATION, HAS BEEN CONFIRMED THE DECISION THRESHOLD FOR [place] DIAGNOSIS. Performed By: #### H STROPN ####[facility] [address] [place], [place] [address]PvDr. Chrissy Schmidt HSTROP 6.9 pg/mL Normal 4.0-51.3 [facility] Comment on above: Result Comment: CUT- OFF POINTS HAVE BEEN ESTABLISHED BASED ON THE FOURTH UNIVERSAL DEFINITIONS OF MYOCARDIAL INFARCTION. THE UPPER REFERENCE LIMIT (URL) OF TROPONIN, DEFINED THE 99TH PERCENTILE OF cTnI DISTRIBUTION IN A REFERENCE POPULATION, HAS BEEN CONFIRMED THE DECISION THRESHOLD FOR [place] DIAGNOSIS. Performed By: #### B DIGITAL X RAY SERVICE ENGINEER, HSTROPN, CMP #### [facility] [address] [place], [place] [address] Dr. Chrissy Schmidt XR CHEST 1 Von [...] by: SHELDON PETERS Date: 2022-03-08 06:21 Normal [facility] MG MAMM SCREEN 3D THERESE CADon 11-08-2021 MG MAMM SCREEN 3D THERESE CAD Patient: ALYCE TORRES Exam Date: 11/08/2021 : 1955 Gender:F Ordering : DR PATRICK MANCILLA . Admission #: [id number] Family : Order #: [id number] CLICK HERE TO VIEW EXAM RADIOLOGY REPORT [...] lung cancer at age 51. LOCATION: [facility] BREAST COMPOSITION: Scattered areas fibroglandular density. [...] MD on 11/17/2021 at 11:08 Normal [facility] *SARS-CoV-2 COVID-19on 03-03 [id number] Not Detected Normal Not Detected [facility] Comment on above: Order Comment: The A ptima SARS-CoV-2 assay is a nucleic acid amplification test intended for the qualitative detection of RNA from SARS-CoV-2 isolated and purified from nasopharyngeal (DIGITAL X RAY SERVICE ENGINEER),oropharyngeal (OP), nasal swab, sputum, and bronchoalveolar lavage (BAL) specimens from patients with signs and symptoms of infection who are suspected of COVID-19. Results are for the identification of SARS-CoV-2 RNA. The SARS-CoV-2 RNA is generally detectable during the acute phase of infection. The Aptima SARS-CoV-2 Assay on the [employer] and [employer] Fusion system is intended for use by laboratory personnel specifically instructed and trained in the operation of the [place] and [employer] Fusion system. The Aptima SARS-CoV-2 assay is [...] information. Performed By: #### [id number] #### [facility] [address] [place] [address], [facility] BASIC METABOLIC PANELon 02-13 Calcium [Mass/Vol] 9.4 mg/dL Normal 8.6-10.3 [facility] Comment on above: Order Comment: No: D o not add to previous draw Performed By: #### 0 0071, [id number] #### [facility] [address] [place] [address], [facility] Chloride [Moles/Vol] 102 mmol/L Normal 98-107 [facility] Comment on above: Order Comment: No: D o not add to previous draw Performed By: #### 0 0071, [id number] #### [facility] [address] [facility] [place] [address], [facility] CO2 [Moles/Vol] 25 mmol/L Normal 21-31 [facility] Comment on above: Order Comment: No: D o not add to previous draw Performed By: #### 0 0071, [id number] #### [facility] [address] [facility] [place] [address], [facility] Creatinine [Mass/Vol] 1.13 mg/dL Normal 0.60-1.20 [facility] Comment on above: Order Comment: No: D o not add to previous draw Performed By: #### 0 0071, [id number] #### [facility] [address] [place] [address], [place] GFR/1.73 sq M predicted among blacks MDRD (S/P/Bld) [Vol rate/Area] 59 ml/min/1.73sq m Abnormal >60 [facility] Comment on above: Order Comment: No: D o not add to previous draw Performed By: #### 0 0071, 22704 #### [facility] [address] [place] [address], [place] GFR/1.73 sq M predicted among non-blacks MDRD (S/P/Bld) [Vol rate/Area] 49 ml/min/1.73sq m Abnormal >60 [facility] Comment on above: Order Comment: No: D o not add to previous draw Performed By: #### 0 0071, [id number] #### [facility] [address] [place] [address], [facility] Glucose [Mass/Vol] 127 mg/dL High 70-100 [facility] Comment on above: Order Comment: No: D o not add to previous draw Performed By: #### 0 007, 55300 #### [facility] [address] [place] [address], [place] Potassium [Moles/Vol] 3.9 mmol/L Normal 3.5-5.1 [facility] Comment on above: Order Comment: No: D o not add to previous draw Performed By: #### 0 0071, 73428 #### [facility] [address] [place] [address], [place] Sodium [Moles/Vol] 134 mmol/L Low 136-145 [facility] Comment on above: Order Comment: No: D o not add to previous draw Performed By: #### 0 [id number], [id number] #### [facility] [address] [place] [address], [place] Urea nitrogen [Mass/Vol] 19 mg/dL Normal 7-25 [facility] Comment on above: Order Comment: No: D o not add to previous draw Performed By: #### 0 0071, [id number] #### [facility] [address] [place] [address], [place] CBC COMPLETE BLOOD COUNTon 0 - Erythrocyte distribution width (RBC) [Ratio] 14.6 % Normal 11.5-15.0 [facility] Comment on above: Order Comment: No: D o not add to previous draw Performed By: #### 5 [id number] #### [facility] [address] [place] [id number], [facility] Hematocrit (Bld) [Volume fraction] 42.7 % Normal 36.0-45.0 [facility] Comment on above: Order Comment: No: D o not add to previous draw Performed By: #### 5 [id number] #### [facility] [address] [place] [address], [facility] Hemoglobin (Bld) [Mass/Vol] 14.0 g/dL Normal 12.0-15.0 [facility] Comment on above: Order Comment: No: D o not add to previous draw Performed By: #### 5 [id number] #### [facility] [address] [place] [address], [facility] IMM PLATELET FRAC 12.7 % High 0.8-6.3 [facility] Comment on above: Order Comment: No: D o not add to previous draw Performed By: #### 5 [id number] #### [facility] [address] [place] [address], [facility] MCH (RBC) [Entitic mass] 27.8 pg Normal 27.0-33.0 [facility] Comment on above: Order Comment: No: D o not add to previous draw Performed By: #### 5 [id number] #### [facility] [address] [place] [id number], [facility] MCHC (RBC) [Mass/Vol] 32.8 g/dL Normal 32.0-35.0 [facility] Comment on above: Order Comment: No: D o not add to previous draw Performed By: #### 5 [id number] #### [facility] [address] [place] [address], [facility] MCV (RBC) [Entitic vol] 84.9 fL Normal 82.0-98.0 [facility] Comment on above: Order Comment: No: D o not add to previous draw Performed By: #### 5 0608 #### [facility] [address] [place] [address], [facility] Nucleated RBC/100 WBC (Bld) [Ratio] 0 % Normal 0-0 [facility] Comment on above: Order Comment: No: D o not add to previous draw Performed By: #### 5 0608 #### [facility] [address] [place] [address], [facility] PLAT CNT 242 10*3/uL Normal 150-400 [facility] Comment on above: Order Comment: No: D o not add to previous draw Performed By: #### 5 0608 #### [facility] [address] [place] [address], [facility] RBC (Bld) [#/Vol] 5.03 10*6/uL High 3.80-5.00 [facility] Comment on above: Order Comment: No: D o not add to previous draw Performed By: #### 5 0608 #### [facility] [address] [place] [address], [facility] WBC (Bld) [#/Vol] 9.50 10*3/uL Normal 4.00-10.60 [facility] Comment on above: Order Comment: No: D o not add to previous draw Performed By: #### 5 [id number] #### [facility] [address] [place] [address], [facility] TROPONIN-Ion 03-03-2020 Troponin I.cardiac [Mass/Vol] 0.00 ng/mL Normal 0.00-0.04 [facility] Comment on above: Order Comment: No: D o not add to previous draw Result Comment: REFE RENCE RANGES: 0.00 - 0.14 ng/ml NEGATIVE 0.15 - 0.25 ng/ml INDETERMINATE > 0.25 ng/ml INDICATIVE OF AN M.I. Performed By: #### 0 [id number], [id number] #### [facility] [address] [place] [address], [facility] CBCon 02-25-2020 ABSOLUTE BAS 0.1 10*3/uL Normal 0.0-0.2 [facility] ABSOLUTE EOS 0.50 10*3/uL Normal 0.0-0.7 [facility] ABSOLUTE NEUTROPHIL COUNT 5.0 10*3/uL Normal 1.4-6.5 [facility] Basophils/100 WBC (Bld) 1.5 % Normal 0.0-2.0 [facility] DTYPE AUTO DIFF Normal [facility] Eosinophils/100 WBC (Bld) 5.6 % Normal 0.0-11.0 [facility] Lymphocytes (Bld) [#/Vol] 1.90 10*3/uL Normal 1.2-3.4 [facility] Lymphocytes/100 WBC (Bld) 23.2 % Normal 20.0-55.0 [facility] Monocytes (Bld) [#/Vol] 0.7 10*3/uL Normal 0.0-0.7 [facility] Monocytes/100 WBC (Bld) 9.1 % Normal 0.0-10.0 [facility] Neutrophils/100 WBC (Bld) 60.6 % Normal 37.0-75.0 [facility] Erythrocyte distribution width (RBC) [Ratio] 14.4 % Normal 11.5-14.5 [facility] Hematocrit (Bld) [Volume fraction] 41.4 % Normal 36.0-48.0 [facility] Hemoglobin (Bld) [Mass/Vol] 13.4 g/dL Normal 12.0-16.0 [facility] MCH (RBC) [Entitic mass] 28.2 pg Normal 26.0-35.0 [facility] MCHC (RBC) [Mass/Vol] 32.4 g/dL Normal 27.0-37.0 [facility] MCV (RBC) [Entitic vol] 86.9 fL Normal 80.0-100.0 [facility] Platelet mean volume (Bld) [Entitic vol] 11.6 fL High 7.4-11.0 [facility] Platelets (Bld) [#/Vol] 208 10*3/uL Normal 130.0-400.0 [facility] RBC (Bld) [#/Vol] 4.77 10*6/uL Normal 4.0-5.4 [facility] WBC (Bld) [#/Vol] 8.2 10*3/uL Normal 3.6-11.0 [facility] CBC, EDIF, PLATELETon 2019 ABSOLUTE BASOPHIL COUNT 0.1 10*3/uL 0 - 0.2 10*3/uL [facility] Basophils/100 WBC (Bld) 1.5 % 0 - 2 % [facility] Differential cell count method Nom (Bld) AUTO DIFF % [facility] Eosinophils (Bld) [#/Vol] 0.50 10*3/uL 0 - 0.7 10*3/uL [facility] Eosinophils/100 WBC (Bld) 5.6 % 0 - 11 % [facility] Erythrocyte distribution width (RBC) [Ratio] 14.4 % 11.5 - 14.5 % [facility] Hematocrit (Bld) [Volume fraction] 41.4 % 36 - 48 % [facility] Hemoglobin (Bld) [Mass/Vol] 13.4 g/dL [facility] Interpretation and review of laboratory results Abnormal [facility] Lymphocytes (Bld) [#/Vol] 1.90 10*3/uL 1.2 - 3.4 10*3/uL [facility] Lymphocytes/100 WBC (Bld) 23.2 % 20 - 55 % [facility] MCH (RBC) [Entitic mass] 28.2 pg 26 - 35 PG [facility] MCHC (RBC) [Mass/Vol] 32.4 g/dL [facility] MCV (RBC) [Entitic vol] 86.9 fL [facility] Monocytes (Bld) [#/Vol] 0.7 10*3/uL 0 - 0.7 10*3/uL [facility] Monocytes/100 WBC (Bld) 9.1 % 0 - 10 % [facility] Neutrophils (Bld) [#/Vol] 5.0 10*3/uL 1.4 - 6.5 10*3/uL [facility] Neutrophils/100 WBC (Bld) 60.6 % 37 - 75 % [facility] Platelet mean volume (Bld) [Entitic vol] 11.6 fL High [facility] Platelets (Bld) [#/Vol] 208 10*3/uL 130 - 400 10*3/uL [facility] RBC (Bld) [#/Vol] 4.77 10*6/uL 4 - 5.4 10*6/uL [facility] WBC (Bld) [#/Vol] 8.2 10*3/uL 3.6 - 11 10*3/uL [facility] ECHOCARDIOGRAM PHARMACOLOGIC AL STRESS TESTon 02-25-2020 User, Interfaces - 02/25/2020 3:57 PM EDT APPROVED REPORT EXAM: Comprehensive 2D, Doppler, and color-flow Echocardiogram Echo Enhancing Agent Agent(s) / Amount(s) Used: Ekin[employer] cc Comments: C/O 09/22 chest tightness. Resolved during [...] were monitored. An Echocardiogram was performed by pool technician in four stages in quad fashion. [...] at ) Atropine ( mg at ) [facility] APPR YANG REPORT EXAM: Comprehensive 2D, Doppler, and color-flow Echocardiogram Echo Enhancing Agent Agent(s) / Amount(s) Used: Definity cc Comments: C/O 09/22 chest tightness. Resolved during [...] were monitored. An Echocardiogram was performed by pool technician in four stages in quad fashion. [...] at ) Atropine ( mg at ) [facility] MAGNESIUMon 02-25-2020 Magnesium [Mass/Vol] 2.2 mg/dL Normal 1.6-2.3 [facility] Magnesium [Mass/Vol] 2.2 mg/dL [facility] RENAL FUNCTION PANELon 02-24 Albumin [Mass/Vol] 4.0 G/dl 3.5 - 5 G/dl [facility] Calcium [Mass/Vol] 9.1 mg/dL [facility] Chloride [Moles/Vol] 102 mmol/L [facility] Comment on above: Please note: Triglyc eride levels of 600mg/dL or higher may positively bias chloride results by approximately 2.1 mmol CO2 [Moles/Vol] 28 mmol/L [facility] Creatinine [Mass/Vol] 1.29 mg/dL High [facility] GFR/1.73 sq M predicted among blacks MDRD (S/P/Bld) [Vol rate/Area] 54 mL/min/{1.73_m2} ml/min/1.73 sq.m [facility] GFR/1.73 sq M predicted among non-blacks MDRD (S/P/Bld) [Vol rate/Area] 45 mL/min/{1.73_m2} ml/min/1.73 sq.m [facility] GFR/1.73 sq M predicted among non-blacks MDRD (S/P/Bld) [Vol rate/Area] Average GFR for 60-69 years old = 85. [facility] Comment on above: Chronic Kidney disea se, GFR = <60. Kidney failure, GFR = <15. The GFR estimate is not adjusted for extreme body surface area or acute process, nor has it been validated for women or ethnic groups other than and . Glucose post fast [Mass/Vol] 117 mg/dL [facility] Comment on above: NORMAL <100 mg/dL PREDIABETES 101-126 mg/dL DIABETES 126 mg/dL or higher Interpretation and review of laboratory results Abnormal [facility] Phosphate [Mass/Vol] 3.9 mg/dL [facility] Potassium [Moles/Vol] 4.0 mmol/L [facility] Sodium [Moles/Vol] 137 mmol/L [facility] Urea nitrogen [Mass/Vol] 32 mg/dL High [facility] RENAL PANEL,FASTINGon 2019 Albumin [Mass/Vol] 4.0 G/dl Normal 3.5-5.0 [facility] Calcium [Mass/Vol] 9.1 mg/dL Normal 8.4-10.2 [facility] Chloride [Moles/Vol] 102 mmol/L Normal 98-107 [facility] Comment on above: Result Comment: [place] note: Triglyceride levels of 600mg/dL or higher may positively bias chloride results by approximately 2.1 mmol CO2 [Moles/Vol] 28 mmol/L Normal 22-30 [facility] Creatinine [Mass/Vol] 1.29 mg/dL High 0.7-1.2 [facility] EST. GFR, 54 ml/min/1.73sq.m Normal [facility] EST. GFR,Non 45 ml/min/1.73sq.m Normal [facility] GFR/1.73 sq M predicted among non-blacks MDRD (S/P/Bld) [Vol rate/Area] Average GFR for 60-69 years old = 85. Normal [facility] Comment on above: Result Comment: [employer] [facility] Kidney disease, GFR = <60. Kidney failure, GFR = <15. The GFR estimate is not adjusted for extreme body surface area or acute process, nor has it been validated for women or ethnic groups other than and . Glucose [Mass/Vol] 117 mg/dL High 70-100 [facility] Comment on above: Result Comment: NORMAL <100 mg/dL PREDIABETES 101-126 mg/dL DIABETES 126 mg/dL or higher PHOSPHOROUS 3.9 MG/DL Normal 2.5-4.5 [facility] Potassium [Moles/Vol] 4.0 mmol/L Normal 3.5-5.1 [facility] Sodium [Moles/Vol] 137 mmol/L Normal 137-145 [facility] Urea nitrogen [Mass/Vol] 32 mg/dL High 7-20 [facility] CBCon 02-24-2020 ABSOLUTE BAS 0.1 10*3/uL Normal 0.0-0.2 [facility] ABSOLUTE EOS 0.40 10*3/uL Normal 0.0-0.7 [facility] ABSOLUTE NEUTROPHIL COUNT 4.0 10*3/uL Normal 1.4-6.5 [facility] Basophils/100 WBC (Bld) 1.1 % Normal 0.0-2.0 [facility] DTYPE AUTO DIFF Normal [facility] Eosinophils/100 WBC (Bld) 5.2 % Normal 0.0-11.0 [facility] Lymphocytes (Bld) [#/Vol] 1.90 10*3/uL Normal 1.2-3.4 [facility] Lymphocytes/100 WBC (Bld) 26.9 % Normal 20.0-55.0 [facility] Monocytes (Bld) [#/Vol] 0.7 10*3/uL Normal 0.0-0.7 [facility] Monocytes/100 WBC (Bld) 9.4 % Normal 0.0-10.0 [facility] Neutrophils/100 WBC (Bld) 57.4 % Normal 37.0-75.0 [facility] Erythrocyte distribution width (RBC) [Ratio] 14.4 % Normal 11.5-14.5 [facility] Hematocrit (Bld) [Volume fraction] 41.3 % Normal 36.0-48.0 [facility] Hemoglobin (Bld) [Mass/Vol] 13.3 g/dL Normal 12.0-16.0 [facility] MCH (RBC) [Entitic mass] 28.2 pg Normal 26.0-35.0 [facility] MCHC (RBC) [Mass/Vol] 32.2 g/dL Normal 27.0-37.0 [facility] MCV (RBC) [Entitic vol] 87.5 fL Normal 80.0-100.0 [facility] Platelet mean volume (Bld) [Entitic vol] 11.7 fL High 7.4-11.0 [facility] Platelets (Bld) [#/Vol] 197 10*3/uL Normal 130.0-400.0 [facility] RBC (Bld) [#/Vol] 4.72 10*6/uL Normal 4.0-5.4 [facility] WBC (Bld) [#/Vol] 7.0 10*3/uL Normal 3.6-11.0 [facility] CBC, EDIF, PLATELETon 2019 ABSOLUTE BASOPHIL COUNT 0.1 10*3/uL 0 - 0.2 10*3/uL [facility] Basophils/100 WBC (Bld) 1.1 % 0 - 2 % [facility] Differential cell count method Nom (Bld) AUTO DIFF % [facility] Eosinophils (Bld) [#/Vol] 0.40 10*3/uL 0 - 0.7 10*3/uL [facility] Eosinophils/100 WBC (Bld) 5.2 % 0 - 11 % [facility] Erythrocyte distribution width (RBC) [Ratio] 14.4 % 11.5 - 14.5 % [facility] Hematocrit (Bld) [Volume fraction] 41.3 % 36 - 48 % [facility] Hemoglobin (Bld) [Mass/Vol] 13.3 g/dL [facility] Interpretation and review of laboratory results Abnormal [facility] Lymphocytes (Bld) [#/Vol] 1.90 10*3/uL 1.2 - 3.4 10*3/uL [facility] Lymphocytes/100 WBC (Bld) 26.9 % 20 - 55 % [facility] MCH (RBC) [Entitic mass] 28.2 pg 26 - 35 PG [facility] MCHC (RBC) [Mass/Vol] 32.2 g/dL [facility] MCV (RBC) [Entitic vol] 87.5 fL [facility] Monocytes (Bld) [#/Vol] 0.7 10*3/uL 0 - 0.7 10*3/uL [facility] Monocytes/100 WBC (Bld) 9.4 % 0 - 10 % [facility] Neutrophils (Bld) [#/Vol] 4.0 10*3/uL 1.4 - 6.5 10*3/uL [facility] Neutrophils/100 WBC (Bld) 57.4 % 37 - 75 % [facility] Platelet mean volume (Bld) [Entitic vol] 11.7 fL High [facility] Platelets (Bld) [#/Vol] 197 10*3/uL 130 - 400 10*3/uL [facility] RBC (Bld) [#/Vol] 4.72 10*6/uL 4 - 5.4 10*6/uL [facility] WBC (Bld) [#/Vol] 7.0 10*3/uL 3.6 - 11 10*3/uL [facility] ISTAT TROPONIN Ion 0 Troponin I.cardiac [Mass/Vol] ng/mL Normal 0-0.08 [facility] Comment on above: Performed By: #### I TROT #### [place] [address] MAGNESIUMon 02-24-2020 Magnesium [Mass/Vol] 1.9 mg/dL Normal 1.6-2.3 [facility] Magnesium [Mass/Vol] 1.9 mg/dL [facility] RENAL FUNCTION PANELon 02-23 Albumin [Mass/Vol] 3.7 G/dl 3.5 - 5 G/dl [facility] Calcium [Mass/Vol] 8.9 mg/dL [facility] Chloride [Moles/Vol] 103 mmol/L [facility] Comment on above: Please note: Triglyc eride levels of 600mg/dL or higher may positively bias chloride results by approximately 2.1 mmol CO2 [Moles/Vol] 26 mmol/L [facility] Creatinine [Mass/Vol] 1.42 mg/dL High [facility] GFR/1.73 sq M predicted among blacks MDRD (S/P/Bld) [Vol rate/Area] 48 mL/min/{1.73_m2} ml/min/1.73 sq.m [facility] GFR/1.73 sq M predicted among non-blacks MDRD (S/P/Bld) [Vol rate/Area] 40 mL/min/{1.73_m2} ml/min/1.73 sq.m [facility] GFR/1.73 sq M predicted among non-blacks MDRD (S/P/Bld) [Vol rate/Area] Average GFR for 60-69 years old = 85. [facility] Comment on above: Chronic Kidney disea se, GFR = <60. Kidney failure, GFR = <15. The GFR estimate is not adjusted for extreme body surface area or acute process, nor has it been validated for women or ethnic groups other than and . Glucose post fast [Mass/Vol] 105 mg/dL High [facility] Comment on above: NORMAL <100 mg/dL PREDIABETES 101-126 mg/dL DIABETES 126 mg/dL or higher Interpretation and review of laboratory results Abnormal [facility] Phosphate [Mass/Vol] 4.4 mg/dL [facility] Potassium [Moles/Vol] 3.9 mmol/L [facility] Sodium [Moles/Vol] 136 mmol/L Low [facility] Urea nitrogen [Mass/Vol] 31 mg/dL High [facility] RENAL PANEL,FASTINGon 2019 Albumin [Mass/Vol] 3.7 G/dl Normal 3.5-5.0 [facility] Calcium [Mass/Vol] 8.9 mg/dL Normal 8.4-10.2 [facility] Chloride [Moles/Vol] 103 mmol/L Normal 98-107 [facility] Comment on above: Result Comment: [place] note: Triglyceride levels of 600mg/dL or higher may positively bias chloride results by approximately 2.1 mmol CO2 [Moles/Vol] 26 mmol/L Normal 22-30 [facility] Creatinine [Mass/Vol] 1.42 mg/dL High 0.7-1.2 [facility] EST. GFR, 48 ml/min/1.73sq.m Normal [facility] EST. GFR,Non 40 ml/min/1.73sq.m [facility] GFR/1.73 sq M predicted among non-blacks MDRD (S/P/Bld) [Vol rate/Area] Average GFR for 60-69 years old = 85. Normal [facility] Comment on above: Result Comment: [employer] [facility] Kidney disease, GFR = <60. Kidney failure, GFR = <15. The GFR estimate is not adjusted for extreme body surface area or acute process, nor has it been validated for women or ethnic groups other than and . Glucose [Mass/Vol] 105 mg/dL High 70-100 [facility] Comment on above: Result Comment: NORMAL <100 mg/dL PREDIABETES 101-126 mg/dL DIABETES 126 mg/dL or higher PHOSPHOROUS 4.4 MG/DL Normal 2.5-4.5 [facility] Potassium [Moles/Vol] 3.9 mmol/L Normal 3.5-5.1 [facility] Sodium [Moles/Vol] 136 mmol/L Low 137-145 [facility] Urea nitrogen [Mass/Vol] 31 mg/dL High 7-20 [facility] TROPONINon 02-24-2020 Troponin I.cardiac [Mass/Vol] ng/mL 0 - 0.08 ng/mL [facility] CBCon 02-23-2020 Basophils/100 WBC (Bld) 1 % Normal 0.0-2.0 [facility] Comment on above: Performed By: #### A CBC #### Testing performed at [address] [place] [address] DTYPE AUTO DIFF Normal [facility] Comment on above: Result Comment: AUTO DIFF RESULTS VERIFIED BY SCAN Performed By: #### A CBC #### Testing performed at [address] [place] [address] Eosinophils/100 WBC (Bld) 2 % Normal 0.0-11.0 [facility] Comment on above: Performed By: #### A CBC #### Testing performed at [address] [address] Lymphocytes/100 WBC (Bld) 13 % Low 20.0-55.0 [facility] Comment on above: Performed By: #### A CBC #### Testing performed at [address] [address] Monocytes/100 WBC (Bld) 6 % Normal 0.0-10.0 [facility] Comment on above: Performed By: #### A CBC #### Testing performed at [address] [address] Neutrophils/100 WBC (Bld) 78 % High 37.0-75.0 [facility] Comment on above: Performed By: #### A CBC #### Testing performed at [address] [place] [address] PLATELET COMMENT ADEQUATE Normal [facility] Comment on above: Result Comment: 1+ GIANT PLTS Performed By: #### A CBC #### Testing performed at [address] [place] [address] RBC morphology finding Nom (Bld) 1+ Normal [facility] Comment on above: Result Comment: POIK ILOCYTE 1+ HYPOCHROMIA Performed By: #### A CBC #### Testing performed at [address] [place] [address] WBC MORPHOLOGY <10% BANDS PRESENT Normal [facility] Comment on above: Performed By: #### A CBC #### Testing performed at [address] [address] Erythrocyte distribution width (RBC) [Ratio] 14.5 % Normal 11.5-14.5 [facility] Comment on above: Performed By: #### A CBC #### Testing performed at [address] [address] Hematocrit (Bld) [Volume fraction] 46.3 % Normal 36.0-48.0 [facility] Comment on above: Performed By: #### A CBC #### Testing performed at [address] [address] Hemoglobin (Bld) [Mass/Vol] 15.1 g/dL Normal 12.0-16.0 [facility] Comment on above: Performed By: #### A CBC #### Testing performed at [address] [address] MCH (RBC) [Entitic mass] 28.4 pg Normal 26.0-35.0 [facility] Comment on above: Performed By: #### A CBC #### Testing performed at [address] [address] MCHC (RBC) [Mass/Vol] 32.7 g/dL Normal 27.0-37.0 [facility] Comment on above: Performed By: #### A CBC #### Testing performed at [address] [address] MCV (RBC) [Entitic vol] 86.9 fL Normal 80.0-100.0 [facility] Comment on above: Performed By: #### A CBC #### Testing performed at [address] [address] Platelet mean volume (Bld) [Entitic vol] 11.3 fL High 7.4-11.0 [facility] Comment on above: Performed By: #### A CBC #### Testing performed at [place] [address] [place] [address] Platelets (Bld) [#/Vol] 252 10*3/uL Normal 130.0-400.0 [facility] Comment on above: Performed By: #### A CBC #### Testing performed at [place] [address] [place] [address] RBC (Bld) [#/Vol] 5.32 10*6/uL Normal 4.0-5.4 [facility] Comment on above: Performed By: #### A CBC #### Testing performed at [place] [address] [place] [address] WBC (Bld) [#/Vol] 10.0 10*3/uL Normal 3.6-11.0 [facility] Comment on above: Performed By: #### A CBC #### Testing performed at [place] [address] [place] [address] CBC, EDIF, PLATELETon 2019 Band form neutrophils/100 WBC (Bld) <10% BANDS PRESENT [facility] Basophils/100 WBC (Bld) 1 % 0 - 2 % [facility] Differential cell count method Nom (Bld) AUTO DIFF % [facility] Comment on above: AUTO DIFF RESULTS VE RIFIED BY SCAN Eosinophils/100 WBC (Bld) 2 % 0 - 11 % [facility] Erythrocyte distribution width (RBC) [Ratio] 14.5 % 11.5 - 14.5 % [facility] Hematocrit (Bld) [Volume fraction] 46.3 % 36 - 48 % [facility] Hemoglobin (Bld) [Mass/Vol] 15.1 g/dL [facility] Interpretation and review of laboratory results Abnormal [facility] Lymphocytes/100 WBC (Bld) 13 % Low 20 - 55 % [facility] MCH (RBC) [Entitic mass] 28.4 pg 26 - 35 PG [facility] MCHC (RBC) [Mass/Vol] 32.7 g/dL [facility] MCV (RBC) [Entitic vol] 86.9 fL [facility] Monocytes/100 WBC (Bld) 6 % 0 - 10 % [facility] Neutrophils/100 WBC (Bld) 78 % High 37 - 75 % [facility] Platelet mean volume (Bld) [Entitic vol] 11.3 fL High [facility] Platelet morphology finding Nom (Bld) ADEQUATE [facility] Comment on above: 1+ GIANT PLTS Platelets (Bld) [#/Vol] 252 10*3/uL 130 - 400 10*3/uL [facility] RBC (Bld) [#/Vol] 5.32 10*6/uL 4 - 5.4 10*6/uL [facility] RBC morphology finding Nom (Bld) 1+ [facility] Comment on above: POIKILOCYTE 1+ HYPOCHROMIA WBC (Bld) [#/Vol] 10.0 10*3/uL 3.6 - 11 10*3/uL [facility] CHEM 7 FASTINGon 02-23-2020 Chloride [Moles/Vol] 102 mmol/L Normal 98-107 [facility] Comment on above: Result Comment: [place] note: Triglyceride levels of 600mg/dL or higher may positively bias chloride results by approximately 2.1 mmol Performed By: #### A CBC #### [place] [address] CO2 [Moles/Vol] 25 mmol/L Normal 22-30 [facility] Comment on above: Performed By: #### A CBC #### [place] [address] Creatinine [Mass/Vol] 1.55 mg/dL High 0.7-1.2 [facility] Comment on above: Performed By: #### A CBC #### Testing performed at [place] [id number] EST. GFR, 44 ml/min/1.73sq.m [facility] Comment on above: Performed By: #### A CBC #### [place] [address] EST. GFR,Non 36 ml/min/1.73sq.m [facility] Comment on above: Performed By: #### A CBC #### Testing performed at [address] [address] GFR/1.73 sq M predicted among non-blacks MDRD (S/P/Bld) [Vol rate/Area] Average GFR for 60-69 years old = 85. Normal [facility] Comment on above: Result Comment: [employer] [facility] Kidney disease, GFR = <60. Kidney failure, GFR = <15. The GFR estimate is not adjusted for extreme body surface area or acute process, nor has it been validated for women or ethnic groups other than and . Performed By: #### A CBC #### Testing performed at [address] [address] Glucose [Mass/Vol] 106 mg/dL High 70-100 [facility] Comment on above: Result Comment: NORMAL <100 mg/dL PREDIABETES 101-126 mg/dL DIABETES 126 mg/dL or higher Performed By: #### A CBC #### Testing performed at [address] [address] Potassium [Moles/Vol] 4.1 mmol/L Normal 3.5-5.1 [facility] Comment on above: Performed By: #### A CBC #### Testing performed at [address] [address] Sodium [Moles/Vol] 137 mmol/L Normal 137-145 [facility] Comment on above: Performed By: #### A CBC #### Testing performed at [address] [address] Urea nitrogen [Mass/Vol] 30 mg/dL High 7-20 [facility] Comment on above: Performed By: #### A CBC #### Testing performed at [address] [address] CHEM 7 (LYTES,BUN,CREA,GLUC) on 02-23-2020 Chloride [Moles/Vol] 102 mmol/L [facility] Comment on above: Please note: Triglyc eride levels of 600mg/dL or higher may positively bias chloride results by approximately 2.1 mmol CO2 [Moles/Vol] 25 mmol/L [facility] Creatinine [Mass/Vol] 1.55 mg/dL High [facility] GFR/1.73 sq M predicted among blacks MDRD (S/P/Bld) [Vol rate/Area] 44 mL/min/{1.73_m2} ml/min/1.73 sq.m [facility] GFR/1.73 sq M predicted among non-blacks MDRD (S/P/Bld) [Vol rate/Area] Average GFR for 60-69 years old = 85. [facility] Comment on above: Chronic Kidney disea se, GFR = <60. Kidney failure, GFR = <15. The GFR estimate is not adjusted for extreme body surface area or acute process, nor has it been validated for women or ethnic groups other than and . GFR/1.73 sq M predicted among non-blacks MDRD (S/P/Bld) [Vol rate/Area] 36 mL/min/{1.73_m2} ml/min/1.73 sq.m [facility] Glucose post fast [Mass/Vol] 106 mg/dL High [facility] Comment on above: NORMAL <100 mg/dL PREDIABETES 101-126 mg/dL DIABETES 126 mg/dL or higher Interpretation and review of laboratory results Abnormal [facility] Potassium [Moles/Vol] 4.1 mmol/L [facility] Sodium [Moles/Vol] 137 mmol/L [facility] Urea nitrogen [Mass/Vol] 30 mg/dL [facility] ECHOCARDIOGRAMon 02-23-2020 User, Interfaces - 02/23/2020 5:24 PM EDT APPROVED REPORT Conclusion [...] PWd 1.2 cm F: 0.6 - 0.9LA Qngdvq46.3 mL LVDd 4.9 cm F: 3.8 - [...] MVA PHT2.80 cm2MR Vmax0.92 m/s MV Dec [place] 136.59 cm/s2MV Decel. Tttr212.44 (160-240 ms) Pulmonary Valve PV Peak Velocity0.9 (0.5-1.5 m/s)PV maxPG3.5 mmHg PV Vmax0.9 m/s [facility] APPR YANG REPORT Conclusion Left Ventricle : [...] cm2 MR Vmax 0.92 m/s MV Dec [place] 136.59 cm/s2 MV Decel. Time 290.44 (160-240 ms) Pulmonary Valve PV Peak Velocity 0.9 (0.5-1.5 m/s) PV maxPG 3.5 mmHg PV Vmax 0.9 m/s [facility] ISTAT TROPONIN Ion 0 Troponin I.cardiac [Mass/Vol] ng/mL Normal 0-0.08 [facility] Comment on above: Performed By: #### I TROT #### Testing performed at [address] [address] Troponin I.cardiac [Mass/Vol] 0.07 ng/mL Normal 0-0.08 [facility] Troponin I.cardiac [Mass/Vol] ng/mL Normal 0-0.08 [facility] LIPID PANEL W CALCULATED LDL on 02-23-2020 Cholesterol [Mass/Vol] 177 mg/dL [facility] Cholesterol in HDL [Mass/Vol] 40 mg/dL [facility] Cholesterol in LDL [Mass/Vol] 98 mg/dL MG/DL [facility] Cholesterol in VLDL [Mass/Vol] 39 mg/dL High [facility] Cholesterol.total/ Cholesterol in HDL [Mass ratio] 4.43 {ratio} RATIO [facility] Comment on above: RISK TOTAL/HDL RATIO MEN WOMEN 1/2 AVERAGE 3.43 3.27 AVERAGE 4.97 4.44 2X AVERAGE 9.55 7.05 3X AVERAGE 23.99 11.04 Interpretation and review of laboratory results Abnormal [facility] Triglyceride [Mass/Vol] 197 mg/dL High [facility] LIPID PROFILEon 02-23-2020 Cholesterol [Mass/Vol] 177 mg/dL Normal 107-217 [facility] Cholesterol in HDL [Mass/Vol] 40 mg/dL Normal 33-75 [facility] Cholesterol in LDL [Mass/Vol] 98 mg/dL Normal [facility] Cholesterol in VLDL [Mass/Vol] 39 mg/dL High 5.0-25 [facility] Cholesterol.total/ Cholesterol in HDL [Mass ratio] 4.43 {ratio} Normal [facility] Comment on above: Result Comment: RISK TOTAL/HDL RATIO MEN WOMEN 1/2 AVERAGE 3.43 3.27 AVERAGE 4.97 4.44 2X AVERAGE 9.55 7.05 3X AVERAGE 23.99 11.04 Triglyceride [Mass/Vol] 197 mg/dL High 0-150 [facility] MRSA SCREENon 02-23-2020 MRSA DNA DAVIN+probe Ql (Unsp spec) Negative Normal NEGATIVE [facility] Comment on above: Performed By: #### M RSAST #### [place] [address] MRSA DNA DAVIN+probe Ql (Unsp spec) Positive Abnormal NEGATIVE [facility] Comment on above: Result Comment: TEST ING PERFORMED BY PCR Testing performed at [place] [address] Performed By: #### M RSAST #### [place] [address] POCT GLUCOSEon 02-23-2020 Glucose [Mass/Vol] 109 mg/dL Abnormal 70 - 99 mg/dL [facility] Interpretation and review of laboratory results Abnormal [facility] PROTIMEon 02-23-2020 INR Coag (PPP) [Relative time] 0.89 {INR} Normal 0.87-1.13 [facility] Comment on above: Result Comment: 2.0- 3.0 THERAPEUTIC RANGE 2.5-3.5 PROSTHETIC VALVE RANGE Performed By: #### A CBC #### Testing performed at [facility] [address] [place] [facility] [address] PT Coag (PPP) [Time] 9.7 s Low 10.0-13.0 [facility] Comment on above: Performed By: #### A CBC #### Testing performed at [facility] [address] [place] [facility] [place] [address] PROTIME-INRon 02-23-2020 INR Coag (PPP) [Relative time] 0.89 {INR} [facility] Comment on above: 2.0-3.0 THERAPEUTIC RANGE 2.5-3.5 PROSTHETIC VALVE RANGE Interpretation and review of laboratory results Abnormal [facility] PT Coag (PPP) [Time] 9.7 s Low [facility] SCREEN: MRSA ONLY, NARES (IS OLATION SCREEN)on 02-23-2020 Interpretation and review of laboratory results Abnormal [facility] [employer] MRSA isol Org specific cx Ql (Nose) Negative NEGATIVE [facility] STAPHYOCOCCUS AUREUS BY PCR Positive Abnormal NEGATIVE [facility] Comment on above: TESTING PERFORMED BY PCR Testing performed at [place], [place] [address] TROPONINon 02-23-2020 Troponin I.cardiac [Mass/Vol] ng/mL 0 - 0.08 ng/mL [facility] Troponin I.cardiac [Mass/Vol] 0.07 ng/mL 0 - 0.08 ng/mL [facility] Troponin I.cardiac [Mass/Vol] ng/mL 0 - 0.08 ng/mL [facility] XR CHEST AP PORTABLEon 02-22 XR CHEST AP PORTABLE EXAMINATION: XR CHEST AP PORTABLE HISTORY: chest pain COMPARISON: 02/09/2019 chest x-ray FINDINGS: LUNGS: No significant pulmonary parenchymal abnormalities. VASCULATURE: No increased pulmonary vasculature. PLEURA: No pneumothorax, effusion, or pleural thickening. CARDIAC: No cardiomegaly or cardiac silhouette abnormality. MEDIASTINUM: No visible mass or adenopathy. BONES: No fracture or visible bone lesion. OTHER: Negative. IMPRESSION: 1. No acute cardiopulmonary process. Normal [facility] User, Interfaces - 02/23/2020 7:37 AM EDT EXAMINATION: XR CHEST [...] IMPRESSION IMPRESSION: 1. No acute cardiopulmonary process. [facility] IMPRESSION: 1. No ac [place] cardiopulmonary process. [facility] EXAMINATION: XR CHES T AP PORTABLE HISTORY: chest pain COMPARISON: 02/09/2019 chest x-ray FINDINGS: LUNGS: No significant pulmonary parenchymal abnormalities. VASCULATURE: No increased pulmonary vasculature. PLEURA: No pneumothorax, effusion, or pleural thickening. CARDIAC: No cardiomegaly or cardiac silhouette abnormality. MEDIASTINUM: No visible mass or adenopathy. BONES: No fracture or visible bone lesion. OTHER: Negative. [facility] Discharge Summaryon 12-19-19 18 HIM IP Note OR Director Report Normal [facility] Plan of Careon 12-18-2017 HIM IP Note OR Director Report Normal [facility] Progress Noteon 12-18-2017 HIM IP Note OR Director Report Normal [facility] HIM IP Note OR Director Report Normal [facility] Op Noteon 12-17-2017 HIM IP Note OR Director Report Normal [facility] Plan of Careon 12-17-2017 HIM IP Note OR Director Report Normal [facility] HIM IP Note OR Director Report Normal [facility] Progress Noteon 12-17-2017 HIM IP Note OR Director Report Normal [facility] HIM IP Note OR Director Report Normal [facility] CBCon 12-16-2017 Erythrocyte distribution width Auto Ratio (RBC) 14.6 % High 11.8-14.4 [facility] Comment on above: Performed By: #### C PBIL, MG ####[address] [address] Erythrocytes (RBC) 0.0 per 100 WBC Normal 0.0 M [facility] Comment on above: Result Comment: [facility] [address] [place] [address] Performed By: #### C PBILC, MG ####[facility] [place] [address] Erythrocytes (RBC) 4.30 10*6/uL Normal 3.95-5.11 [facility] Comment on above: Performed By: #### C PBILC, MG ####[address] [address] Hematocrit (HCT) 38.3 % Normal 36.3-47.1 [facility] Comment on above: Performed By: #### C PBILC, MG ####[address] [address] Hemoglobin mass conc (Bld) 11.9 g/dL Normal 11.9-15.1 [facility] Comment on above: Performed By: #### C PBILC, MG ####[address] [address] MCH 27.7 pg Normal 25.2-33.5 [facility] Comment on above: Performed By: #### C PBILC, MG ####[address] [address] MCHC mass conc (RBC) 31.1 g/dL Normal 28.4-34.8 [facility] Comment on above: Performed By: #### C PBILC, MG ####[address] [address] MCV 89.1 fL Normal 82.6-102.9 [facility] Comment on above: Performed By: #### C PBILC, MG ####[address] [address] Platelets See Reflexed IPF Result Normal 138-453 M [facility] Comment on above: Performed By: #### C PBJOSE FC, MG ####[facility] [address] [place] [address] WBC (Leukocytes) 6.3 10*3/uL Normal 3.5-11.3 [facility] [place] [facility] Comment on above: Performed By: #### C PBJOSE FC, MG ####[facility] [address] [place] [address] Platelet mean volume (PMV) NOT REPORTED Normal 8.1-13.5 [facility] Comment on above: Performed By: #### Aftab PBJOSE FC, MG ####[address] [address] Comp Metabolic Pr/rfx MGon 0 12-16-2017 (cont.) Normal [facility] Comment on above: Result Comment: Aver age GFR for 60-69 years old: 85 mL/min/1.73sq mChronic Kidney Disease: <60 mL/min/1.73sq mKidney failure: <15 mL/min/1.73sq meGFR calculated using average adult body mass. Additional eGFR calculator available at:http://www.FusionAds.CompleteSet/multiple_crcl_2012.htmJ.[facility]. [facility] [address] [place] [address] Performed By: #### C PBILC, MG ####[facility] [address] [place] [address] Alanine aminotransferase (ALT) 12 U/L Normal 5-33 [facility] Comment on above: Performed By: #### C PBILC, MG ####[facility] [address] [place] [address] Albumin 3.3 g/dL Low 3.5-5.2 [facility] Comment on above: Performed By: #### Aftab PBILC, MG ####[facility] [address]nuycothyxc5[address] [place] [address] Albumin/Globulin Ratio 1.3 {ratio} Normal 1.0-2.5 [facility] Comment on above: Performed By: #### C PBILC, MG ####[facility] [address]lonioj[address] [place] [address] Alkaline Phos 130 U/L High 35-104 [facility] Comment on above: Performed By: #### C PBILC, MG ####[facility] [address]ljj[address] [place] [address] Anion gap 11 mmol/L Normal 9-17 [facility] Comment on above: Performed By: #### C PBILC, MG ####[facility] HospitalNovacta BiosystemsDoioxxfvqmse2734 [place] [address] Aspartate aminotransferase (AST) 15 U/L Normal <32 [facility] Comment on above: Performed By: #### C PBILC, MG ####[facility] HospitalNovacta BiosystemsQorigrbthgrd4734 [place] [address] Bilirubin Ql (U) 0.30 mg/dL Normal 0.3-1.2 [facility] Comment on above: Performed By: #### C PBILC, MG ####[facility] Nptrocquexgy2760 [place] [address] Calcium 8.1 mg/dL Low 8.6-10.4 [facility] Comment on above: Performed By: #### C PBILC, MG ####[facility] Qbteiygnnmul27[address] [place] [address] Chloride 107 mmol/L Normal 98-107 [facility] Comment on above: Performed By: #### C PBILC, MG ####[facility] [address]rukyyj[address] [place] [address] CO2 22 mmol/L Normal 20-31 [facility] Comment on above: Performed By: #### C PBILC, MG ####[facility] [place] [address] Creatinine 0.90 mg/dL Normal 0.50-0.90 [facility] Comment on above: Performed By: #### C PBILC, MG ####[facility] [address]ns[address] [place] [address] eGFR (non-black) mL/min/{1.73_m2} Normal >60 [facility] Comment on above: Performed By: #### C PBILC, MG ####[place] [address] [place] [address] Glucose mass conc 95 mg/dL Normal 70-99 [facility] [place] [facility] Comment on above: Performed By: #### C PBILC, MG ####[address] [address] Potassium molar conc 4.2 mmol/L Normal 3.7-5.3 [facility] Comment on above: Performed By: #### C PBILC, MG ####[place] [address] [place] [address] Protein 5.9 g/dL Low 6.4-8.3 [facility] Comment on above: Performed By: #### C PBILC, MG ####[facility] [address]wh[address]cc[address] [place] [address] Sodium 140 mmol/L Normal 135-144 [facility] Comment on above: Performed By: #### C PBILC, MG ####[facility] [place] [address] Urea nitrogen 20 mg/dL Normal 8-23 [facility] Comment on above: Performed By: #### C PBILC, MG ####[place] [address] [place] [address] BUN/CRE Ratio NOT REPORTED Normal 9-20 [facility] Comment on above: Performed By: #### C PBILC, MG ####[place] [address] [place] [address] Staging: NOT REPORTED Normal [facility] Comment on above: Performed By: #### C PBILC, MG ####[facility] [address] [place] [address] Lipid Profileon 12-16-2017 Cholesterol 150 mg/dL Normal <200 [facility] Comment on above: Result Comment: Chol esterol Guidelines: <200 Desirable 200-240 Borderline >240 Undesirable Performed By: #### C PBILC, MG ####[address] [address] Cholesterol to HDL Ratio 4.1 {ratio} Normal <5 [facility] Comment on above: Performed By: #### C PBILC, MG ####[facility] [address] [place] [address] HDL Cholesterol 37 mg/dL Low >40 [facility] Comment on above: Result Comment: HDL Guidelines: <40 Undesirable 40-59 Borderline >59 Desirable Performed By: #### C PBILC, MG ####[facility] [place] [address] LDL Cholesterol 96 mg/dL Normal 0-130 [facility] Comment on above: Result Comment: LDL Guidelines: <100 Desirable 100-129 Near to/above Desirable 130-159 Borderline >159 UndesirableDirect (measured) LDL and calculated LDL are not interchangeable tests. Performed By: #### C PBILC, MG ####[facility] [address] [place] [address] Triglyceride 85 mg/dL Normal <150 [facility] Comment on above: Result Comment: Trig lyceride Guidelines: <150 Desirable 150- 199 Borderline 200-499 High >499 Very high Based on AHA Guidelines for fasting triglyceride, April 2012.[facility] [place] [address] Performed By: #### C PBILC, MG ####[facility] [address] [place] [address] Cholesterol in VLDL mass conc NOT REPORTED Normal 1-30 [facility] Comment on above: Performed By: #### C PBILC, MG ####[facility] HospitalNovacta BiosystemsMgigefmbmdaj[address] [place] [address] Magnesiumon 12-16-2017 Magnesium 2.2 mg/dL Normal 1.6-2.6 [facility] Comment on above: Result Comment: [employer] [address] [place] [address] Performed By: #### C PBILC, MG ####[facility] [address] [place] [address] PLT, Immature Fract.on 12-16 Platelet, Fluoresc. 192 k/uL Normal 138-453 [facility] Comment on above: Result Comment: [employer] BY [employer] [address] [place] [address] Performed By: #### C PBILC, MG ####[facility] [address] [place] [address] PLT, Immature Fract. 14.9 % High 1.1-10.3 [facility] Comment on above: Result Comment: ORDE RED BY LAB Performed By: #### C PBILC, MG ####[facility] HospitalNovacta BiosystemsOetanrmkhjjp07[address] [place] [address] Plan of Careon 12-16-2017 HIM IP Note OR Director Report Normal [facility] HIM IP Note OR Director Report Normal [facility] HIM IP Note OR Director Report Normal [facility] HIM IP Note OR Director Report Normal [facility] Progress Noteon 12-16-2017 HIM IP Note OR Director Report Normal [facility] HIM IP Note OR Director Report Normal [facility] TSH w/reflex to FT4on 2017 Thyroid stimulating hormone (TSH) 2.46 m[IU]/L Normal 0.30-5.00 [facility] Comment on above: Result Comment: [facility] [employer] [address] [place] [address] Performed By: #### C PBILC, MG ####[address] [address] CBCon 12-15-2017 Erythrocyte distribution width Auto Ratio (RBC) 14.6 % High 11.8-14.4 [facility] Comment on above: Performed By: #### C BC, IPF ####[address] [address] Erythrocytes (RBC) 0.0 per 100 WBC Normal 0.0 M [facility] Comment on above: Result Comment: [facility] [employer] [address] [place] [address] Performed By: #### C BC, IPF ####[address] [address] Erythrocytes (RBC) 4.49 10*6/uL Normal 3.95-5.11 [facility] Comment on above: Performed By: #### C BC, IPF ####[address] [address] Hematocrit (HCT) 40.3 % Normal 36.3-47.1 [facility] Comment on above: Performed By: #### C BC, IPF ####[address] [address] Hemoglobin mass conc (Bld) 12.5 g/dL Normal 11.9-15.1 [facility] Comment on above: Performed By: #### C BC, IPF ####[address] [place] [address] MCH 27.8 pg Normal 25.2-33.5 [facility] Comment on above: Performed By: #### C BC, IPF ####[place] [address] [place] [address] MCHC mass conc (RBC) 31.0 g/dL Normal 28.4-34.8 [facility] Comment on above: Performed By: #### C BC, IPF ####[address] [address] MCV 89.8 fL Normal 82.6-102.9 [facility] Comment on above: Performed By: #### C BC, IPF ####[address] [address] Platelets See Reflexed IPF Result Normal 138-453 M [facility] Comment on above: Performed By: #### C BC, IPF ####[address] [address] WBC (Leukocytes) 5.7 10*3/uL Normal 3.5-11.3 [facility] Comment on above: Performed By: #### C BC, IPF ####[address] [address] Platelet mean volume (PMV) NOT REPORTED Normal 8.1-13.5 [facility] Comment on above: Performed By: #### C BC, IPF ####[address] [address] CTA CHEST W CONTRASTon 12-15 CTA CHEST W CONTRAST FINAL REPORTEXAM: CTA CHEST W CONTRASTHISTORY: CHEST PAIN, ACUTE, PULMONARY [...] No pulmonary embolism. Interpreted by:Jose RandleSigned by:Jose Randle12/14/18Final result Normal [facility] Comp Metab w/Bili Pron 12-15 (cont.) Normal [facility] Comment on above: Result Comment: Aver age GFR for 60-69 years old: 85 mL/min/1.73sq mChronic Kidney Disease: <60 mL/min/1.73sq mKidney failure: <15 mL/min/1.73sq meGFR calculated using average adult body mass. Additional eGFR calculator available at:http://www.FusionAds.CompleteSet/multiple_crcl_2012.htmJ.[facility] [address] [place] [address] Performed By: #### C PBILC, MG ####[facility] [address] [place] [address] Alanine aminotransferase (ALT) 12 U/L Normal 5-33 [facility] Comment on above: Performed By: #### C PBILC, MG ####[facility] [address] [place] [address] Albumin 3.6 g/dL Normal 3.5-5.2 [facility] Comment on above: Performed By: #### C PBILC, MG ####[facility] HospitalNovacta BiosystemsXbqpgmhhwdhb9093 [place] [address] Albumin/Globulin Ratio 1.4 {ratio} Normal 1.0-2.5 [facility] Comment on above: Performed By: #### C PBILC, MG ####[facility] [address]fxphyaxfve8751 [place] [address] Alkaline Phos 134 U/L High 35-104 [facility] Comment on above: Performed By: #### C PBILC, MG ####[facility] [address]wsxlptnrdi[address]29 [place] [address] Anion gap 10 mmol/L Normal 9-17 [facility] Comment on above: Performed By: #### C PBILC, MG ####[facility] [address]xntqnfmdr5203 [place] [address] Aspartate aminotransferase (AST) 16 U/L Normal <32 [facility] Comment on above: Performed By: #### C PBILC, MG ####[facility] [address]qu[address]jlyelrj[address] [place] [address] Bilirubin (direct) 0.10 mg/dL Normal <0.31 [facility] Comment on above: Performed By: #### C PBILC, MG ####[facility] [address]xocup[address]58 [place] [address] Bilirubin Ql (U) 0.47 mg/dL Normal 0.3-1.2 [facility] Comment on above: Performed By: #### C PBILC, MG ####[facility] [address]byzzc[address] [place] [address] Bilirubin, Indirect 0.37 mg/dL Normal 0.00-1.00 [facility] Comment on above: Performed By: #### C PBILC, MG ####[facility] Risjrmfnuvgp5732 [place] [address] Calcium 8.3 mg/dL Low 8.6-10.4 [facility] Comment on above: Performed By: #### C PBILC, MG ####[facility] Ngxwnftqxpnt8615 [place] [address] Chloride 106 mmol/L Normal 98-107 [facility] Comment on above: Performed By: #### C PBILC, MG ####[facility] Kbqxvtmsicsb1750 [place] [address] CO2 22 mmol/L Normal 20-31 [facility] Comment on above: Performed By: #### C PBILC, MG ####[facility] Wglvqnowgjhy6866 [place] [address] Creatinine 0.73 mg/dL Normal 0.50-0.90 [facility] Comment on above: Performed By: #### C PBILC, MG ####[facility] Egjylzhtyeqe5051 [place] [address] eGFR (non-black) mL/min/{1.73_m2} Normal >60 [facility] Comment on above: Performed By: #### C PBILC, MG ####[facility] Mvyjghromjxg8762 [place] [address] Glucose mass conc 100 mg/dL High 70-99 [facility] Comment on above: Performed By: #### C PBILC, MG ####[facility] Eliphswchjci0754 [place] [address] Potassium molar conc 3.9 mmol/L Normal 3.7-5.3 [facility] Comment on above: Performed By: #### C PBILC, MG ####[facility] Xxmzcpsumxym1499 [place] [address] Protein 6.1 g/dL Low 6.4-8.3 [facility] Comment on above: Performed By: #### C PBILC, MG ####[facility] Fvomyogtwsod9953 [place] [address] Sodium 138 mmol/L Normal 135-144 [facility] Comment on above: Performed By: #### C PBILC, MG ####[facility] Tnyygxiyedkn3348 [place] [address] Urea nitrogen 15 mg/dL Normal 8-23 [facility] Comment on above: Performed By: #### C PBILC, MG ####[address]zkltpr[address] [place] [address] Staging: NOT REPORTED Normal [facility] Comment on above: Performed By: #### C PBILC, MG ####[facility] Npuhcbcbpiqz3415 [place] [address] Consulton 12-15-2017 HIM IP Note OR Director Report Normal [facility] ED Noteon 12-15-2017 HIM IP Note OR Director Report Normal [facility] History and Physicalon 12-15 HIM IP Note OR Director Report Normal [facility] Magnesiumon 12-15-2017 Magnesium 2.1 mg/dL Normal 1.6-2.6 [facility] Comment on above: Result Comment: [facility] [employer] [facility] [place] [address] Performed By: #### C PBILC, MG ####[address] [address] PLT, Immature Fract.on 12-15 Platelet, Fluoresc. 214 k/uL Normal 138-453 [facility] Comment on above: Result Comment: ORDE RED BY LABMerTransglobal Energy [facility] [place] [address] Performed By: #### C BC, IPF ####[facility] Fhifzluibxxr0445 [place] [address] PLT, Immature Fract. 13.5 % High 1.1-10.3 [facility] Comment on above: Result Comment: ORDE RED BY LAB Performed By: #### C BC, IPF ####[facility] [address] [place] [address] Progress Noteon 12-15-2017 HIM IP Note OR Director Report Normal [facility] Trop/Myoglobinon 12-15-2017 Myoglobin 33 ng/mL Normal 25-58 [facility] Comment on above: Result Comment: [employer] [address] [place] [address] Performed By: #### E CENZ ####[address] [place] [address] Troponin I.cardiac mass conc Normal [facility] Comment on above: Result Comment: Refe rence [...] for diagnosis. Performed By: #### E CENZ ####[address] [address] Troponin T.cardiac mass conc ug/L Normal <0.03 [facility] Comment on above: Result Comment: Trop onin T results cannot be compared to Troponin-I results. Performed By: #### E CENZ ####[address] [address] Myoglobin 35 ng/mL Normal 25-58 [facility] Comment on above: Result Comment: [employer] [address] [place] [address] Performed By: #### E CENZ ####[address] [address] Troponin I.cardiac mass conc Normal [facility] Comment on above: Result Comment: Refe rence [...] for diagnosis. Performed By: #### E CENZ ####[address] [place] [address] Troponin T.cardiac mass conc ug/L Normal <0.03 [facility] Comment on above: Result Comment: Trop onin T results cannot be compared to Troponin-I results. Performed By: #### E CENZ ####[facility] [place] [address] Troponinon 12-15-2017 Troponin I.cardiac mass conc Normal [facility] Comment on above: Result Comment: Refe rence Range: <0.03 Within reference range. 0.03-0.09 Possible myocardial damage.Repeat at appropriate intervals to rule out chronic elevation. >= 0.10 Indicative of myocardial damage.Patients with high levels of Biotin oral intake (i.e >5mg/day) may have falsely decreased Troponin T levels. Samples collected within 8 hours of biotin intake may require additional information for diagnosis.Performed at [address] [place], [place] [id number] [phone] Performed By: #### B DIGITAL X RAY SERVICE ENGINEER, LIP, TROPI, DIME, PTT, CDP, CMPX, IPF, MG ####[address] [place] [address] Troponin T.cardiac mass conc ug/L Normal <0.03 [facility] Comment on above: Result Comment: Trop onin T results cannot be compared to Troponin-I results. Performed By: #### B DIGITAL X RAY SERVICE ENGINEER, LIP, TROPI, DIME, PTT, CDP, CMPX, IPF, MG ####[address] [place] [address] APTTon 12-14-2017 aPTT 27.3 s Normal 23.2-34.4 [facility] Comment on above: Result Comment: Perf ormed at [address] [place] [address] Performed By: #### B DIGITAL X RAY SERVICE ENGINEER, LIP, TROPI, DIME, PTT, CDP, CMPX, IPF, MG ####[address] [place] [address] Brain Natri. Peptideon 12-14 BNP 49 pg/mL Normal <300 [facility] Comment on above: Result Comment: Pro- BNP results cannot be compared to BNP results. Performed By: #### B DIGITAL X RAY SERVICE ENGINEER, LIP, TROPI, DIME, PTT, CDP, CMPX, IPF, MG ####[address] [place] [address] BNP Normal [facility] Comment on above: Result Comment: Pro- BNP Reference Range:Rule Out: <300Grey Zone: Age <50 300-450 Age 50-75 300-900 Age >75 300-1800Usually represents mild to moderate HF but other cardiopulmonary causes cannot be ruled out.Rule In: Age <50 >450 Age 50-75 >900 Age >75 >1800Performed at [address] [place] [address] Performed By: #### B DIGITAL X RAY SERVICE ENGINEER, LIP, TROPI, DIME, PTT, CDP, CMPX, IPF, MG ####[address] [place] [address] CBC with Diffon 12-14-2017 Abs. Basophil 0.09 k/uL Normal 0.00-0.20 [facility] Comment on above: Performed By: #### B DIGITAL X RAY SERVICE ENGINEER, LIP, TROPI, DIME, PTT, CDP, CMPX, IPF, MG ####[address] [place] [address] Abs.Neutrophil (Seg) 5.13 k/uL Normal 1.50-8.10 [facility] Comment on above: Performed By: #### B DIGITAL X RAY SERVICE ENGINEER, LIP, TROPI, DIME, PTT, CDP, CMPX, IPF, MG ####[address] [place] [address] Basophils/100 WBC Auto (Bld) 1 % Normal 0-2 [facility] Comment on above: Performed By: #### B DIGITAL X RAY SERVICE ENGINEER, LIP, TROPI, DIME, PTT, CDP, CMPX, IPF, MG ####[address] [place] [address] Eosinophils 0.40 10*3/uL Normal 0.00-0.44 [facility] Comment on above: Performed By: #### B DIGITAL X RAY SERVICE ENGINEER, LIP, TROPI, DIME, PTT, CDP, CMPX, IPF, MG ####[address] , [place] [address] Eosinophils/100 leukocytes 5 % High 1-4 [facility] Comment on above: Performed By: #### B DIGITAL X RAY SERVICE ENGINEER, LIP, TROPI, DIME, PTT, CDP, CMPX, IPF, MG ####[address] , [facility]83 Erythrocyte distribution width Auto Ratio (RBC) 14.6 % High 11.8-14.4 [facility] Comment on above: Performed By: #### B DIGITAL X RAY SERVICE ENGINEER, LIP, TROPI, DIME, PTT, CDP, CMPX, IPF, MG ####[address] , [facility]83 Erythrocytes (RBC) 0.0 per 100 WBC Normal 0.0 [facility] Comment on above: Performed By: #### B DIGITAL X RAY SERVICE ENGINEER, LIP, TROPI, DIME, PTT, CDP, CMPX, IPF, MG ####[address] , [facility]83 Erythrocytes (RBC) 5.04 10*6/uL Normal 3.95-5.11 [facility] Comment on above: Performed By: #### B DIGITAL X RAY SERVICE ENGINEER, LIP, TROPI, DIME, PTT, CDP, CMPX, IPF, MG ####[address] , [facility]83 Granulocytes/100 WBC (Bld) % Normal 0.00-0.30 [facility] Comment on above: Result Comment: Perf ormed at [address] [place] [address] Performed By: #### B DIGITAL X RAY SERVICE ENGINEER, LIP, TROPI, DIME, PTT, CDP, CMPX, IPF, MG ####[address] [place] [address] Hematocrit (HCT) 43.7 % Normal 36.3-47.1 [facility] Comment on above: Performed By: #### B DIGITAL X RAY SERVICE ENGINEER, LIP, TROPI, DIME, PTT, CDP, CMPX, IPF, MG ####[address] [place] [address] Hemoglobin mass conc (Bld) 14.1 g/dL Normal 11.9-15.1 [facility] Comment on above: Performed By: #### B DIGITAL X RAY SERVICE ENGINEER, LIP, TROPI, DIME, PTT, CDP, CMPX, IPF, MG ####[address] [place] [address] Immature granulocytes #/vol (Bld) 0 % Normal 0 [facility] Comment on above: Performed By: #### B DIGITAL X RAY SERVICE ENGINEER, LIP, TROPI, DIME, PTT, CDP, CMPX, IPF, MG ####[address] [place] [address] Lymphocytes 2.57 10*3/uL Normal 1.10-3.70 [facility] Comment on above: Performed By: #### B DIGITAL X RAY SERVICE ENGINEER, LIP, TROPI, DIME, PTT, CDP, CMPX, IPF, MG ####[address] [place] [address] Lymphocytes/100 leukocytes 29 % Normal 24-43 [facility] Comment on above: Performed By: #### B DIGITAL X RAY SERVICE ENGINEER, LIP, TROPI, DIME, PTT, CDP, CMPX, IPF, MG ####[address] [place] [address] MCH 28.0 pg Normal 25.2-33.5 [facility] Comment on above: Performed By: #### B DIGITAL X RAY SERVICE ENGINEER, LIP, TROPI, DIME, PTT, CDP, CMPX, IPF, MG ####[address] [place] [address] MCHC mass conc (RBC) 32.3 g/dL Normal 28.4-34.8 [facility] Comment on above: Performed By: #### B DIGITAL X RAY SERVICE ENGINEER, LIP, TROPI, DIME, PTT, CDP, CMPX, IPF, MG ####[address] [place] [address] MCV 86.7 fL Normal 82.6-102.9 [facility] Comment on above: Performed By: #### B DIGITAL X RAY SERVICE ENGINEER, LIP, TROPI, DIME, PTT, CDP, CMPX, IPF, MG ####[address] [place] [address] Monocytes 0.74 10*3/uL Normal 0.10-1.20 [facility] Comment on above: Performed By: #### B DIGITAL X RAY SERVICE ENGINEER, LIP, TROPI, DIME, PTT, CDP, CMPX, IPF, MG ####[address] [place] [address] Monocytes/100 leukocytes 8 % Normal 3-12 [facility] Comment on above: Performed By: #### B DIGITAL X RAY SERVICE ENGINEER, LIP, TROPI, DIME, PTT, CDP, CMPX, IPF, MG ####[address] [place] [address] Neutrophil (Seg) 57 % Normal 36-65 [facility] Comment on above: Performed By: #### B DIGITAL X RAY SERVICE ENGINEER, LIP, TROPI, DIME, PTT, CDP, CMPX, IPF, MG ####[address] [place] [address] Platelets See Reflexed IPF Result Normal 138-453 M [facility] Comment on above: Performed By: #### B DIGITAL X RAY SERVICE ENGINEER, LIP, TROPI, DIME, PTT, CDP, CMPX, IPF, MG ####[address] [place] [address] WBC (Leukocytes) 9.0 10*3/uL Normal 3.5-11.3 [facility] Comment on above: Performed By: #### B DIGITAL X RAY SERVICE ENGINEER, LIP, TROPI, DIME, PTT, CDP, CMPX, IPF, MG ####[address] [place] [address] Auto Diff Performed NOT REPORTED Normal [facility] Comment on above: Performed By: #### B DIGITAL X RAY SERVICE ENGINEER, LIP, TROPI, DIME, PTT, CDP, CMPX, IPF, MG ####[address] [place] [address] Erythrocyte morphology NOT REPORTED Normal [facility] Comment on above: Performed By: #### B DIGITAL X RAY SERVICE ENGINEER, LIP, TROPI, DIME, PTT, CDP, CMPX, IPF, MG ####[address] [place] [address] Platelet mean volume (PMV) NOT REPORTED Normal 8.1-13.5 [facility] Comment on above: Performed By: #### B DIGITAL X RAY SERVICE ENGINEER, LIP, TROPI, DIME, PTT, CDP, CMPX, IPF, MG ####[address] [place] [address] Platelets NOT REPORTED Normal [facility] Comment on above: Performed By: #### B DIGITAL X RAY SERVICE ENGINEER, LIP, TROPI, DIME, PTT, CDP, CMPX, IPF, MG ####[address] [place] [address] WBC Morphology NOT REPORTED Normal [facility] Comment on above: Performed By: #### B DIGITAL X RAY SERVICE ENGINEER, LIP, TROPI, DIME, PTT, CDP, CMPX, IPF, MG ####[address] [place] [address] Comp Metabolic Pr/rfx MGon 0 12-14-2017 Potassium molar conc 3.4 mmol/L Low 3.7-5.3 [facility] Comment on above: Performed By: #### B DIGITAL X RAY SERVICE ENGINEER, LIP, TROPI, DIME, PTT, CDP, CMPX, IPF, MG ####[address] [place] [address] (cont.) Normal [facility] Comment on above: Result Comment: Aver age GFR for 60-69 years old: 85 mL/min/1.73sq mChronic Kidney Disease: <60 mL/min/1.73sq mKidney failure: <15 mL/min/1.73sq meGFR calculated using average adult body mass. Additional eGFR calculator available at:http://www.[employer]/multiple_crcl_2012.htm Performed By: #### B DIGITAL X RAY SERVICE ENGINEER, LIP, TROPI, DIME, PTT, CDP, CMPX, IPF, MG ####[address] [place] [address] Alanine aminotransferase (ALT) 17 U/L Normal 5-33 [facility] Comment on above: Performed By: #### B DIGITAL X RAY SERVICE ENGINEER, LIP, TROPI, DIME, PTT, CDP, CMPX, IPF, MG ####[address] [place] [address] Albumin 4.4 g/dL Normal 3.5-5.2 [facility] Comment on above: Performed By: #### B DIGITAL X RAY SERVICE ENGINEER, LIP, TROPI, DIME, PTT, CDP, CMPX, IPF, MG ####[address] [place] [address] Albumin/Globulin Ratio 1.2 {ratio} Normal 1.0-2.5 [facility] Comment on above: Performed By: #### B DIGITAL X RAY SERVICE ENGINEER, LIP, TROPI, DIME, PTT, CDP, CMPX, IPF, MG ####[address] [place] [address] Alkaline Phos 204 U/L High 35-104 [facility] Comment on above: Performed By: #### B DIGITAL X RAY SERVICE ENGINEER, LIP, TROPI, DIME, PTT, CDP, CMPX, IPF, MG ####[address] [place] [address] Anion gap 14 mmol/L Normal 9-17 [facility] Comment on above: Performed By: #### B DIGITAL X RAY SERVICE ENGINEER, LIP, TROPI, DIME, PTT, CDP, CMPX, IPF, MG ####[address] [place] [address] Aspartate aminotransferase (AST) 16 U/L Normal <32 [facility] Comment on above: Performed By: #### B DIGITAL X RAY SERVICE ENGINEER, LIP, TROPI, DIME, PTT, CDP, CMPX, IPF, MG ####[address] [place] [address] Bilirubin Ql (U) 0.31 mg/dL Normal 0.3-1.2 [facility] Comment on above: Performed By: #### B DIGITAL X RAY SERVICE ENGINEER, LIP, TROPI, DIME, PTT, CDP, CMPX, IPF, MG ####[address] [place] [address] BUN/CRE Ratio 20 Normal 9-20 [facility] Comment on above: Performed By: #### B DIGITAL X RAY SERVICE ENGINEER, LIP, TROPI, DIME, PTT, CDP, CMPX, IPF, MG ####[address] [place] [address] Calcium 9.8 mg/dL Normal 8.6-10.4 [facility] Comment on above: Performed By: #### B DIGITAL X RAY SERVICE ENGINEER, LIP, TROPI, DIME, PTT, CDP, CMPX, IPF, MG ####[address] [place] [address] Chloride 98 mmol/L Normal 98-107 [facility] Comment on above: Performed By: #### B DIGITAL X RAY SERVICE ENGINEER, LIP, TROPI, DIME, PTT, CDP, CMPX, IPF, MG ####[address] [place] [address] CO2 26 mmol/L Normal 20-31 [facility] Comment on above: Performed By: #### B DIGITAL X RAY SERVICE ENGINEER, LIP, TROPI, DIME, PTT, CDP, CMPX, IPF, MG ####[address] [place] [address] Creatinine 1.03 mg/dL High 0.50-0.90 [facility] Comment on above: Performed By: #### B DIGITAL X RAY SERVICE ENGINEER, LIP, TROPI, DIME, PTT, CDP, CMPX, IPF, MG ####[address] [place] [address] eGFR (non-black) mL/min/{1.73_m2} Normal >60 [facility] Comment on above: Performed By: #### B DIGITAL X RAY SERVICE ENGINEER, LIP, TROPI, DIME, PTT, CDP, CMPX, IPF, MG ####[address] , [facility]83 eGFR (non-black) 55 mL/min/{1.73_m2} Low >60 [facility] Comment on above: Performed By: #### B DIGITAL X RAY SERVICE ENGINEER, LIP, TROPI, DIME, PTT, CDP, CMPX, IPF, MG ####[address] [place] [address] Glucose mass conc 103 mg/dL High 70-99 [facility] Comment on above: Performed By: #### B DIGITAL X RAY SERVICE ENGINEER, LIP, TROPI, DIME, PTT, CDP, CMPX, IPF, MG ####[address] [place] [address] Protein 8.1 g/dL Normal 6.4-8.3 [facility] Comment on above: Performed By: #### B DIGITAL X RAY SERVICE ENGINEER, LIP, TROPI, DIME, PTT, CDP, CMPX, IPF, MG ####[address] , [place] [address] Sodium 138 mmol/L Normal 135-144 [facility] Comment on above: Performed By: #### B DIGITAL X RAY SERVICE ENGINEER, LIP, TROPI, DIME, PTT, CDP, CMPX, IPF, MG ####[address] [place] [address] Staging: Normal [facility] Comment on above: Result Comment: Stag e 1: Some kidney damage normal GFRStage 2: Mild kidney damage GFR 60-89Stage 3: Moderate kidney damage GFR 30-59Stage 4: Severe kidney damage GFR 15-29Stage 5: Severe kidney damage GFR <15ESRD - chronic treatment by dialysis or transplantPerformed at [address] [place] [address] Performed By: #### B DIGITAL X RAY SERVICE ENGINEER, LIP, TROPI, DIME, PTT, CDP, CMPX, IPF, MG ####[address] , [place] [address] Urea nitrogen 21 mg/dL Normal 8-23 [facility] Comment on above: Performed By: #### B DIGITAL X RAY SERVICE ENGINEER, LIP, TROPI, DIME, PTT, CDP, CMPX, IPF, MG ####[address] , [place] [address] D-Dimer Teston 12-14-2017 D-Dimer Test 1.16 mg/L FEU High 0.19-0.50 [facility] Comment on above: Result Comment: Elev [...] PE (negative predictive value of 98%).Performed at [address] [place], [place] [address] [phone] Performed By: #### B DIGITAL X RAY SERVICE ENGINEER, LIP, TROPI, DIME, PTT, CDP, CMPX, IPF, MG ####[address] [place] [address] ED Provider Noteon 8 HIM IP Note OR Director Report Normal [facility] Lipaseon 12-14-2017 Lipase 18 U/L Normal 13-60 [facility] Comment on above: Result Comment: Perf ormed at [address] [place] [address] Performed By: #### B DIGITAL X RAY SERVICE ENGINEER, LIP, TROPI, DIME, PTT, CDP, CMPX, IPF, MG ####[address] [place] [address] Magnesiumon 12-14-2017 Magnesium 2.2 mg/dL Normal 1.6-2.6 [facility] Comment on above: Result Comment: Perf ormed at [address] [place] [address] Performed By: #### B DIGITAL X RAY SERVICE ENGINEER, LIP, TROPI, DIME, PTT, CDP, CMPX, IPF, MG ####[address] [place] [address] PLT, Immature Fract.on 12-14 Platelet, Fluoresc. 248 k/uL Normal 138-453 [facility] Comment on above: Result Comment: Perf ormed at [address] [place] [address] Performed By: #### B DIGITAL X RAY SERVICE ENGINEER, LIP, TROPI, DIME, PTT, CDP, CMPX, IPF, MG ####[address] [place] [address] PLT, Immature Fract. 13.5 % High 1.1-10.3 [facility] Comment on above: Performed By: #### B DIGITAL X RAY SERVICE ENGINEER, LIP, TROPI, DIME, PTT, CDP, CMPX, IPF, MG ####[address] [place] [address] Plan of Careon 12-14-2017 HIM IP Note OR Director Report Normal [facility] Troponinon 12-14-2017 Troponin I.cardiac mass conc Normal [facility] Comment on above: Result Comment: Refe rence Range: <0.03 Within reference range. 0.03-0.09 Possible myocardial damage.Repeat at appropriate intervals to rule out chronic elevation. >= 0.10 Indicative of myocardial damage.Patients with high levels of Biotin oral intake (i.e >5mg/day) may have falsely decreased Troponin T levels. Samples collected within 8 hours of biotin intake may require additional information for diagnosis.Performed at [address] [place], [place] [id number] [phone] Performed By: #### B DIGITAL X RAY SERVICE ENGINEER, LIP, TROPI, DIME, PTT, CDP, CMPX, IPF, MG ####[address] [place] [address] Troponin T.cardiac mass conc ug/L Normal <0.03 [facility] Comment on above: Result Comment: Trop onin T results cannot be compared to Troponin-I results. Performed By: #### B DIGITAL X RAY SERVICE ENGINEER, LIP, TROPI, DIME, PTT, CDP, CMPX, IPF, MG ####[address] , [place] [id number] XR CHEST (2 VW)on 12-14-2017 XR CHEST (2 VW) FINAL REPORTEXAM: XR CHEST (2 VW)HISTORY: pain TECHNIQUE: PA and Lateral views of the chestPRIORS: None.FINDINGS: The cardiomediastinal silhouette is within normal limits. The lung parenchyma is clear. There are no pleural abnormalities. Degenerative changes of the spine.IMPRESSION: Impression: No acute radiographic abnormality. Interpreted by:Jose RandleSigned by:Jose Randle12/14/17inal result Normal [facility] Vital Signs Date Time Vital Sign Value Performing Clinician Liliana hubbard 06-20-2023 13:59-0500 Blood Pressure Location [place] [facility] 06-20-2023 13:59-0500 Diastolic blood pressure 86 mm[Hg] [place] N[facility] 06-20-2023 13:59-0500 Heart rate 80 /min [place] [facility] 06-20-2023 13:59-0500 Respiratory rate 16 /min [place] N[place] [facility] 06-20-2023 13:59-0500 Systolic blood pressure 130 mm[Hg] [place] N[facility] 02-25-2020 16:37-0400 Body Temperature 99.1 [degF] [facility] 02-25-2020 16:37-0400 BP Diastolic 61 mm[Hg] [facility] 02-25-2020 16:37-0400 BP Systolic 121 mm[Hg] [facility] 02-25-2020 16:37-0400 Pulse (Heart Rate) 78 /min [facility] 02-25-2020 16:37-0400 Pulse Oximetry 98 % [facility] 02-25-2020 16:37-0400 Respiratory Rate 16 /min [facility] 02-25-2020 04:21-0400 BMI (Body Mass Index) 46.31 kg/m2 [facility] 02-25-2020 04:21-0400 Body weight 130.14 kg [facility] 02-23-2020 09:33-0400 Height 167.6 cm [facility] 06-30-2019 11:20-0500 Body Temperature 97 [degF] [facility] 06-30-[facility] 11:20-0500 BP Diastolic 79 mm[facility]Hg[facility]-30-2019 11:20-0500 BP Systolic 135 mm[Hg] [facility] 06-30-2019 11:20-0500 Pulse (Heart Rate) 84 /min [facility] 06-30-2019 11:20-0500 Pulse Oximetry 97 % [facility] 06-30-2019 11:20-0500 Respiratory Rate 20 /min Randall Hurley [facility] Encounters Encounter Date Encounter Type Care Provider Facility Start: 08-17-2023 End: 08-17-2023 ambulatory [facility] Start: 07-18-2023 End: 07-19-2023 ambulatory [place] GREENE Facility:[facility] Start: 07-04-2023 End: 07-05-2023 ambulatory [place] R JC Facility:CD:[id number] Start: 06-20-2023 End: 06-21-2023 ambulatory PATRICK MANCILLA Facility: [facility] Start: 06-20-2023 End: 06-20-2023 Patient encounter procedure [place] R [facility] Start: 05-17-2023 ambulatory PATRICK MANCILLA Facility:[facility] Start: 11-06-2022 End: 11-06-2022 [facility]: 09-29-2022 End: 09-30-[address] PATRICK MANCILLA Facility:[facility] Start: 07-19-2022 End: 07-20-2022 ambulatory KIRILL HOPKINS Facility:[facility] Start: 04-05-2022 End: 04-06-[address] PATRICK MANCILLA Facility:[facility] Start: 03-08-2022 End: 03-08-[address] LINH MCGILL Facility:[facility] Start: 01-10-2022 End: 01-11-[address] PATRICK MANCILLA Facility:[facility] Start: 11-08-2021 End: 11-09-[address] PATRICK MANCILLA Facility:[facility] Start: 03-03-2020 End: 03-03-2020 Patient encounter procedure DEREK AGUILAR Facility:[facility] Start: 02-23-2020 End: 02-25-2020 Emergency department patient visit Lisandro Gomez Work Phone: [facility] Med S[facility] Comment on above: Chest pain, rule out acute myocardial infarction Start: 06-30-2019 End: 06-30-2019 Emergency department patient visit Randall Hurley Work Phone: [facility] Start: 02-25-2019 End: 02-25-2019 Letter encounter Hilton Castanon Work Phone: [facility] Start: 02-19-2019 End: 02-19-2019 Letter encounter Sheldon Chua Work Phone: [facility] Central Scheduling Start: 12-15-2017 End: 12-18-2017 Evaluation and management of inpatient ELADIO S [facility] Start: 12-14-2017 End: 12-15-2017 Emergency department patient visit [facility] Procedures Date Procedure Procedure Detail Performing Clinician [...] Phone: Start: 02-23-2020 Plain chest X-ray Kelley Mckeon [employer] Phone: Start: 02-23-2020 Assay of troponin quantitative Kelley morillo Work Phone: Start: 02-23-2020 Complete blood count with white cell differential, automated Kelley Mckeon Work Phone: Start: 02-23-2020 Electrolyte panel Kelley Mckeon Work Phone: Start: 02-23-2020 Lipid panel Sheldon Chua Work Phone: Start: 02-23-2020 Prothrombin time Kelley Mckeon [employer] Phone: Start: 02-23-2020 Standard ECG Kelley Mckeon [employer] Phone: Start: 02-23-2020 Lipid 1996 panel - Serum or Plasma Lisandro Gomez Start: 12-18-2017 CPAP ELADIO MORENITA Start: 12-18-2017 DISCHARGE PATIENT ELADIO MORENITA Start: 12-18-2017 CPAP ELADIO MORENITA Start: 12-18-2017 INITIATE OXYGEN THERAPY PROTOCOL ELADIO ALONSO Start: 12-18-2017 POC GLUCOSE FINGERSTICK ELADIO MORENITA Start: 12-18-2017 TELEMETRY MONITORING ELADIO MORENITA Start: [...] 05-22-2011 Colonoscopy [place] NILL Start: 05-15-2011 Esophagogastroduodenoscopy Ucba NILL Start: 05-15-2011 Sigmoidoscopy [place] N[place] Abdominal hysterectomy Jacek rodri NILL Arthroscopy of knee [place] N[place] Biopsy of breast [place] NIL L Cholecystectomy [place] N[place] Repair of musculoten dinous cuff of shoulder [place] NILL Plan of Treatment Date Care Activity Detail Author Start: 02-22-2025 Fasting lipid profile LIPID SCREENIN [facility] Start: 02-23-2021 Potassium [Moles/Vol] POTASSIUM A [employer] [facility] Start: 03-16-2020 Influenza vaccination INFLUENZA VACC INE (#1) [facility] Start: 03-03-2020 End: 02-24-2021 RENAL FUNCTION PANEL RENAL FUNCTION PANEL Lab Routine EDIE (acute kidney injury) Expected: 03/03/2020 (Approximate), Expires: 02/24/2021 [facility] Comment on above: Expected: 03/03/2020 (Approximate), Expires: 02/24/2021 Start: 02-10-2020 Potassium [Moles/Vol] POTASSIUM A [facility] Start: 03-16-2019 Influenza vaccination INFLUENZA VACC INE (#1) [facility] Start: 12-08-2007 Colonoscopy [facility] Start: 12-08-2007 Zoster vaccine hzv l paz for subcutaneous use ZOSTER (SHINGLES) VACCINE (1 of 2) [facility] Start: 1997 Fasting lipid profile LIPID SCREENIN [facility] Start: 1997 Screening mammography MAMMOGRA M SCREENING DISCUSSION [facility] Start: 1978 Screening for malign ant neoplasm of cervix [facility] Start: 1976 Third diphtheria, te tanus and acellular pertussis (DTaP) vaccination TDAP (ADULT) [facility] Start: 12-08-[address] [facility] Start: 1970 HIV screening HIV SCREENING DISCUSSION [facility] Start: 1957 Hepatitis C antibody , confirmatory test HEPATITIS C VIRUS SCREENING [facility] Start: 1957 TSH Qn TSH [facility] Standard ECG ECG ECG STAT 04/2020 6:34 AM EDT [facility] Immunizations Immunization Date Immunization Notes Care Provider Fa emerita 05-15-2019 influenza virus vaccine, whole virus [facility] 05-15-2019 influenza virus vaccine, unspecified formulation [facility] NEGATED: Highlighted row has not occurred!06-20-2023 influenza virus vaccine, unspecified formulation [place] [facility] Payers Date Payer Category Payer Private Health Insurance [id number] 2023 Unknown [id number] 2019 Private Health Insurance ELSA MUKHERJEE [id number] 2019-Present [id number] 2019 Unknown GENERIC PAYOR GE NERIC PLAN xxxxxxxxxx 2019-Present xxxxxxxxxx [id number] 1959 Medicaid [id number] 1957 Unknown [id number] 647 1957 Unknown [id number]. 593 1957 Unknown [id number]. 593 1957 Unknown [id number]. 593 1957 Unknown [id number] [id number]. 593 1957 Unknown [id number] [id number]. 593 1957 Unknown [id number] [id number]. 593 1957 Unknown [id number] [id number]. 593 1957 Unknown [id number] [id number]. 727 1957 Unknown [id number] [id number]. 727 1957 Unknown [id number] 727 Private Health Insurance [id number] Unknown [id number] Social History Date Type Detail Facility Start: 02-09-2019 End: 06-20-2023 Tobacco smoking status NHIS Never smoker [facility] Start: 02-09-2019 History SDOH Alcohol Frequency 1 [facility] Sex Assigned At Not on file [facility] Start: 06-30-2019 End: 02-25-2020 Alcohol intake Lifetime non-drinker (finding) [facility] Start: 02-25-2020 Tobacco use and exposure Never used [employer] Exposure to SARS-CoV -2 (event) Not sure [facility] Start: 02-09-2019 Alcohol intake Never [facility] Tobacco smoking status Never [facility] Functional Status Date Assessment Result Facility 06-20-2023 Functional Status N/A [facility] Progress note 08-17-2023 Note Date & Type Note Facility 08-17-2023 Note [facility] Subjective Alyce Torres is a 67 y.o. year old female patient being seen for 10 mo follow up chronic diastolic heart failure, hypertension, and hyperlipidemia. She has lost 14# since last visit in October 2022. Says her SOB is improving, but LE edema is still constant . She will have routine labs for PCP drawn soon. Has intermittent dizzy spells. No recent labs/imaging. Denies chest pain but sometimes gets little twinges . Patient Active Problem List Diagnosis EDIE (acute [...] Types: Cigarettes Quit date: 04/12/2018 Years since quittin.3 Smokeless tobacco: Never Substance Use Topics Alcohol [...] medicine. In February of 2020 she was i (more content not included)... [facility] Clinical Note 06-20-2023 Note Date & Type [...] 10 mg Ta (more content not included)... [facility] Comment on above: Result Comment: Elec tronically Signed By: JC ARAMBULA, [place] Argueta.salinas\Date and Time Signed: 06/20/23 14:53 EST Progress [...] CBC, magnesium. BUN (more content not included)... [facility] Evaluation + Plan note Note Date & Type Note Facility Evaluation + Plan note No data available for this section [facility] Discharge instructions Note Date & Type Note Facility Hospital Discharge instructions No data available for this section [facility] Progress note Note Date & Type Note Facility Progress note No data available for this section [facility] Summary Purpose Family History No Family History Records FoundNo Family History Records FoundNo Family History Records FoundNo Family History Records FoundNo Family History Records Found No data available for this section No Family History Records FoundNo Family History Records Found Advance Directives No [...] vomiting and diarrhea Randall Hurley, [address] [place] [address] Patrick Mancilla MD [address] [place] [address] Status Reason Specialty Diagnoses / Procedures Re ferred By Contact Referred To Contact New Request Procedures INPATIENT ADMISSION NOTIFICATION Bakari Dumont MD [address] [place] [address] Status Reason Specialty Diagnoses / Procedures Referred By Contact Referred To Contact New Request Procedures ECG Kelley Mckeon MD [address] [facility] [address] [place] [address] Discharge Instructions * Instructions* Randall Hurley, - [...] You may find a provider through the [employer] Physician Referral Service by calling [phone] or by visiting [email or web address] Thank You for choosing the [facility] Emergency Department! * Attachments The following attachments cannot be sent through Care Everywhere. * Gastroenteritis (Turkmen) documented in this encounter* Discharge Instr - Activity* Johanna Jesus RN - 02/25/2020 10:30 AM EDT Resume pre-hospital activity. * Discharge Instr - Diet* Johanna Jesus RN - 02/25/2020 10:30 AM EDT Resume pre-hospital diet. * Discharge Instr - Notify* Johanna Jesus RN - 02/25/2020 10:31 AM EDT [id number]: You passed out (lost consciousness). You have [...] irregular heartbeat. After you call 911, the gasoline catalyst operator may tell you to chew 1 [...] sent through Care Everywhere. * Chest Pain (Turkmen) * metoprolol (oral/injection) (Turkmen) documented in this encounter Assessments Diagnosis Nausea [...] prescription coverage and has medications filled at [facility] in [place]. She denies concerns with getting her medications. Patient indicates she does not have medical equipment at home. Patient denies being in a SNF, and having HHC in the home. It does not appear there are any social work assistant needs at this time, however SW will continue to follow for discharge needs. DARLENE Fernandez 02/25/2020 9:49 am 02/25/20 0946 Information Source Information Source patient Information Source Name Alyce Torres Information Source Number [phone] Contact Information Hatchery Attendant Name Kanchan Espinoza Social Work Contact Name RILEY Sanchez LSW Line Puller's Living Environment Lives With alone Living Arrangements [...] noted Referral Information Referral Source physician * Baakri Dumont MD - 02/24/2020 12:28 PM EDT DAILY PROGRESS NOTE Admit Date: 02/23/2020 Date of Evaluation: 02/24/202012:[address] [facility] LOS: 0 days SUBJECTIVE: Patient seen and [...] tablet 81 mg 81 mg Oral Daily AYAZ DonaldsonGREEN PLUMBER 81 mg at 02/24/20 0834 enOXAParin (LOVENOX) injection 40 mg 40 mg Subcutaneous Daily AYAZ DonaldsonGREEN PLUMBER 40 mg at02/24/20 0857 fluticasone (FLONASE) 50 MCG/ACT nasal spray 2 spray 2 spray Nasal Daily AYAZ DonalsdonGREEN PLUMBER 2 spray at 02/23/206 furOSEmide (LASIX) tablet 40 mg 40 mg Oral BID Sheldon Chua APRN-[employer]BER 40 mg at 02/24/20 0834 ipratropium-albuterol (DUONEB) 0.5-2.5 (3) MG/3ML nebulizer solution 3 mL 3 mL Nebulization Q4H PRNSETHEL Vargas isosorbide mononitrate (IMDUR) tablet XL 60 mg 60 mg Oral Daily Sheldon Chua APRN-GREEN [employer]BER 60 mg at 02/24/20 0834 labetalol (NORMODYNE) injection 20 mg 20 mg Intravenous Q6H PRN ETHEL Donaldson lamoTRIgine (laMICtal) tablet 50 mg 50 mg Oral QHS ETHEL Donaldson 50 mg at 02/23/202118 levothyroxine (SYNTHROID) tablet 112 mcg 112 mcg Oral Before BKF Sheldon Chua APRN-[employer]BER 112 mcg at 02/24/20 0518 magnesium sulfate 2 g/50 mL in sterile water premix IVPB 2 g 50 mL (total volume) 2 g Intravenous Daily Sheldon Chua APRN-GREEN [employer]BER 2 g at 02/24/20 0800 metoprolol (LOPRESSOR) tablet 50 mg 50 mg Oral Daily Sheldon Chua APRN- [employer] 50 mg at 02/24/200834 NIFEdipine (ADALAT-CC) tablet XL 60 mg 60 mg Oral Daily Sheldon Chua APRN-GREEN [employer]BER 60 mg at 02/24/20 0834 ondansetron 4mg/2ml (ZOFRAN) injection 4 mg 4 mg Intravenous Q4H PRN Bakari Dumont MD pantoprazole (PROTONIX) tablet DR 40 mg 40 mg Oral Daily Sheldon Chua APRN-GREEN [employer]UMBER 40 mg at 02/24/20 0835 potassium chloride (K-DUR) tablet ER 40 mEq 40 mEq Oral Daily ETHEL Donaldson Or potassium chloride 40 mEq in 0.9% sodium chloride 500 ml IVPB 40 mEq Intravenous Daily ETHEL Donaldson sodium chloride 0.9% IV solution Intravenous Continuous Bakari Dumont MD 75 mL/hr at 02/24/20 0920 traMADol (ULTRAM) tablet 50 mg 50 mg Oral Q6H PRN ETHEL Donaldson venlafaxine (EFFEXOR-XR) capsule XR 150 mg 150 mg Oral Every BKF ETHEL Donaldson 150 mg at 02/24/20 0835 Diagnostics: CBC [...] Please note Portions of this note utilized [employer] dictation software, please excuse any typographical or [...] 2259 02/22 2300 02/23 0659 Total 02/23 0700 02/23 1459 Total Intake 240 240 Output Net [...] significant valvular heart disease. 02/22 0640 02/23 045 WBC 7.0 HEMOGLOBIN (HGB) 13.3 HEMATOCRIT (HCT) [...] to home to follow-up with her regular engine tester. If she does have coronary artery ischemia then plan for her to have diagnostic cardiac catheterization performed. documented in this encounter Hospital Course Note MR#: [id number] [facility] Pt. Name: Alyce Torres Admitted: 03/03/2020 Discharged: [...] section and content) DATE CREATED AUTHOR 01/01/2018 [facility] DATE CREATED AUTHOR AUTHOR'S ORGANIZ ATION 01/02/2018 [facility] Elsie [facility] 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 The patient reports a history of prior [place] and over the past several days has [...] hypertension, benign GERD (gastroesophageal reflux disease) Hypothyroidism [place] (myocardial infarction) Past Surgical History: Procedure Laterality [...] 60 mg by mouth daily. 5 02/23/2020 [place]-3 Fatty Acids (Fish Oil) 1000 MG capsule [...] Status: Full Code GI/DVT Prophylaxis: Protonix/Lovenox Sheldon Chua CNP completing HPI for Dr. Cho Please note Portions of this note utilized [employer] dictation software, please excuse any typographical or [...] assessment and plan and agree with the GREEN PLUMBER findings and plan of care as documented. I agree with their findings and plan with any exceptions or additions noted below. History of CAD with [place] in 1998 who had a repeat left heart catheterization about a year ago by her engine tester. Presented with sudden onset of chest tightness this morning at her work place and felt nauseated and light headed. Her chest pain is reproducible on palpation in the lower sternal border. First set of troponin negative. EKG non acute. Had a dry cough for the last couple of weeks. Has history of seasonal allergy. Will continue ruling out acute [place]. Echocardiogram and cardiology consult pending. Principal Problem: Chest pain, rule out acute myocardial infarction Active Problems: Obesity: body mass index of 40.0-49.9 Benign hypertension Hyperlipidemia EDIE (acute kidney injury) documented in this encounter Jalen Thomas II, MD - 02/23/2020 9:53 AM EDT Consult Notes (unrecognized section and content) Associated Order(s): IP CONSULT TO CARDIOLOGY Chief Complaint Precordial chest pain. SHARMILA Torres is a 64 y.o. female who was seen by [facility] cardiology today for evaluation after she was [...] disease stage III. She presented to the [facility] emergency room and was given aspirin. A [...] hypertension, benign GERD (gastroesophageal reflux disease) Hypothyroidism [place] (myocardial infarction) 1. Coronary artery disease: yes. The patient had a diagnostic cardiac catheterization performed about 12 years ago and it was deemed that she be treated medically. 2. Myocardial infarction: yes 3. Congestive Heart Failure: no 4. Cardiomyopathy: no 5. Arrhythmia: no 6. Valvular heart disease: The patient had a transthoracic echocardiogram performed on 12/17/2017 at [facility]. This was interpreted as showing normal left [...] Migraine headache: no 35. Vasculitis: no 36. RUBBER TURNER/OB: Status post a hysterectomy procedure. 39. Obesity: [...] 60 mg by mouth daily. 5 02/23/2020 [place]-3 Fatty Acids (Fish Oil) 1000 MG capsule [...] file Gets together: Not on file Attends gnosticism service: Not on file Active member of [...] dry. Alert and oriented. No distress noted. cardiac monitor RSR. Called floor, states Ok to transfer to 215 Received bed placement from [facility] room 215 Refuses breakfast at this time. Dr. Gomez speaks to Dr. Dumont Emergency Department Report [facility] Service Date:.02/23/20 PCP: Patrick Mancilla [...] for 3 weeks. She recently traveled to [place] a month ago. she denies sick contacts. [...] stress test 2 years ago by her engine tester. She was recently started on metoprolol for [...] hypertension, benign GERD (gastroesophageal reflux disease) Hypothyroidism [place] (myocardial infarction) Past Surgical History: Past Surgical [...] file Gets together: Not on file Attends gnosticism service: Not on file Active member of [...] mg ondansetron 4mg/2ml (ZOFRAN) injection 4 mg [place]-3 Fatty Acids (Fish Oil) 1000 MG capsule [...] Procedures: Procedures: EKG shows NSR rate 70: NC interval 196 ms, QRS duration 82 ms;no [...] above information. . . Lisandro Gomez MD 02/23/2011 Lisandro Gomez MD 02/23/20821 documented in this encounter Nursing Notes - [...] Personnel Name: PATRICK MANCILLA MD Address: Address: [address] [place] [phone] FOR RECORDS PERTAINING TO PATIENTS WHO ARE [...] BE BASED ON THE PRIMARY CLINICAL RECORDS. [facility]. provides no warranty or guarantee of the accuracy or completeness of information in this document.
[2023-11-21 09:19] LABS: Estimated Average Glucose 126 mg/dL
[2023-11-21 09:32] LABS: Microalbumin Urine Random <1.3 mg/dL (<=30.0)
[2023-11-21 10:35] LABS: Alanine Aminotransferase 25 U/L (14-59); Albumin Globulin Ratio 0.9; Albumin Level 3.7 g/dL (3.4-5.0); Alkaline Phosphatase 221 U/L (46-116); Anion Gap 13.9; Aspartate Amino Transferase 18 U/L (15-37); BUN Creatinine Ratio 17.6; Bilirubin Direct 0.1 mg/dL (0.0-0.2); Bilirubin Total 0.5 mg/dL (0.2-1.0); Calcium 9.3 mg/dL (8.5-10.1); Carbon Dioxide 28.1 mmol/L (21.0-32.0); Chloride 102 mmol/L (98-107); Chol HDL Ratio 2.2; Cholesterol 128 mg/dL (<=200); Estimated GFR (African America 55 (>=60); Estimated GFR (Non-African Ame 46 (>=60); Glucose 104 mg/dL (74-106); HDL Cholesterol 57 mg/dL (40-60); LDL Cholesterol Calculated 48.2 mg/dL; Sodium 140 mmol/L (136-145); Thyroid Stimulating Hormone 6.175 uIU/mL (0.358-3.740); Total Protein 7.7 g/dL (6.4-8.2); Triglycerides 114 mg/dL (<=150); VLDL CHOLESTEROL 22.8 mg/dL
[2023-11-21 10:54] LABS: Basophils Absolute Auto 0.1 10^3/uL (0.0-0.1); Basophils Percent Auto 1.4 % (0.2-2.0); Eosinophils Absolute Auto 0.3 10^3/uL (0.0-0.7); Eosinophils Percent Auto 3.9 % (0.9-7.0); Hematocrit 42.1 % (36.0-48.0); Hemoglobin 13.4 g/dL (12.0-16.0); Immature Granulocytes Abs Auto 0.01 10^3/uL (0.00-0.03); Immature Granulocytes Pct Auto 0.1 % (0.0-0.5); Lymphocytes Absolute Auto 2.3 10^3/uL (1.2-3.8); Lymphocytes Percent Auto 30.5 % (20.5-60.0); Mean Corpuscular HGB Conc 31.8 g/dL (29.9-35.2); Mean Corpuscular Hemoglobin 27.7 pg (26.7-34.0); Mean Platelet Volume 13.9 fL (9.5-13.5); Monocytes Absolute Auto 0.6 10^3/uL (0.3-0.8); Monocytes Percent Auto 8.6 % (1.7-12.0); Neutrophils Absolute Auto 4.1 10^3/uL (1.4-6.5); Neutrophils Percent Auto 55.5 % (43.0-75.0); Platelet Count 254 10^3/uL (150-450); Red Blood Count 4.84 10^6/uL (4.20-5.40); Red Cell Distribution Width 15.6 % (11.0-15.0); White Blood Count 7.4 10^3/uL (4.0-11.0)
== END 2023-11-21 08:24 | disposition home or self-care (01) ==
LOC: LAB 08:26
PROVIDERS: PCP Family Medicine; Visit Provider Family Medicine
DX: E11.8 Type 2 diabetes mellitus with unspecified complications (principal); I10 Essential (primary) hypertension; E66.01 Morbid (severe) obesity due to excess calories; Z51.81 Encounter for therapeutic drug level monitoring
CPT/HCPCS: 36415; 80048; 80061; 80076; 82043; 83036; 84443; 85025

== ENCOUNTER 2023-12-19 10:01 | Outpatient (OUT) | payer MEDICARE, SELFPAY ==
--- NOTE | 2023-12-19 10:04 | MM_ITS ---
Patient Name: JOSSIE TORRES MR#: [id number] : 1955 Exam Date: 12/19/2023 Ordering Doctor: DR Patrick Hitchcock . RADIOLOGY REPORT PROCEDURE: MM TOMOSYNTHESIS SCREENING BI COMPARISON: MG MAMM SCREEN 3D THERESE CAD, 12/01/2022. MG MAMM SCREEN 3D THERESE CAD, 11/08/2021. MG MAMM THERESE SCRN W CAD DIG, 03/21/2013. INDICATIONS: Screening Calculator Name NCI Breast Cancer Risk Assessment Tool 5 Year Breast Cancer Risk 5.10% Lifetime Breast Cancer Risk 17.40% Personal Breast Cancer No Personal Ovarian Cancer No Treatments None Family Cancers Aunt-maternal with breast cancer at age 52; Aunt-maternal with breast cancer at age 61; Aunt-maternal with breast cancer at age 64; Mother with breast cancer at age 79; Father with lung cancer at age 49. LOCATION: [facility] BREAST COMPOSITION: There are scattered areas of fibroglandular density. FINDINGS: DIAGNOSTIC CATEGORY 2--BENIGN FINDING: RIGHT BREAST: No significant suspicious finding. Scattered benign-appearing nodules are present. Scattered benign-appearing calcifications are present. Scattered benign-appearing lymph nodes are present. No significant change has occurred. LEFT BREAST: No significant suspicious finding. Scattered benign-appearing nodules are present. Scattered benign-appearing calcifications are present. Scattered benign-appearing lymph nodes are present. No significant change has occurred. RECOMMENDATIONS: ROUTINE MAMMOGRAM AND CLINICAL EVALUATION IN 12 MONTHS. PLEASE NOTE: A NORMAL MAMMOGRAM DOES NOT EXCLUDE THE POSSIBILITY OF BREAST CANCER. A CLINICALLY SUSPICIOUS PALPABLE LUMP SHOULD BE BIOPSIED. Dictated by: Malcom Guillen M.D. on 12/21/2023 at 10:39 Approved by: Malcom Guillen M.D. on 12/21/2023 at 10:45
== END 2023-12-19 10:02 | disposition home or self-care (01) ==
LOC: MAMMO 10:01
PROVIDERS: PCP Family Medicine; Visit Provider Family Medicine
DX: Z12.31 Encounter for screening mammogram for malignant neoplasm of breast (principal); Z80.3 Family history of malignant neoplasm of breast; Z80.1 Family history of malignant neoplasm of trachea, bronchus and lung
CPT/HCPCS: 77063; 77067